=== PATIENT | female | born 1950 | race Caucasian/White ===

== ENCOUNTER → 2017-04-21 11:11 | Outpatient (CLI) | payer MEDICARE, OTHER, SELFPAY ==
--- NOTE | 2017-04-21 | XR_ITS ---
XR shoulder RT min 2V Ordering Physician: Nikhil Leon MD Patient Age: 66 years: Female HISTORY: ITS.REASON: INJURY OF RT SHOULDER, PAIN TECHNIQUE: 3 view right shoulder COMPARISON :No prior shoulder films available. There is a previous chest film 1117 useful comparison FINDINGS no acute fracture nor dislocation at the right shoulder but there are degenerative changes. Also note also suggestive some downward sloping of the acromion associated with roughening subchondral cystic changes base the humeral head and its junction with greater tuberosity. Also Questionable narrowing subacromial space- this difficult to confirm on these particular projections today. These features suggest underlying impingement & may reflect rotator cuff demise or injury. If pain persist MR may be of benefit to further evaluate for such clinically appropriate There are degenerative changes of the glenohumeral joint IMPRESSION 1. No acute fracture nor dislocation. 2. Degenerative changes at the right shoulder.: ... Mild Degenerative changes glenohumeral joint ... Suggestion of impingement anatomy and sequela as well: Downward sloping of acromion. Irregularity at superior base of humeral head at its junction with greater tuberosity suggest impingement and may which likely impact rotator cuff cuff.
== END ==
PROVIDERS: PCP Internal Medicine Adolescent Medicine; Referring Provider Internal Medicine Adolescent Medicine; Visit Provider Internal Medicine Adolescent Medicine
DX: S49.91XA Unspecified injury of right shoulder and upper arm, initial encounter (principal)
CPT/HCPCS: 73030

== ENCOUNTER → 2017-09-07 08:54 | Outpatient (CLI) | payer MEDICARE, OTHER, SELFPAY ==
[2017-09-07 09:20] LABS: Basophils % 0.8 % (0.1-2.0); Eosinophils % 0.1 % (0.1-12.0); Hematocrit 47.1 % (37.0-47.0); Hemoglobin 14.4 g/dL (12.2-16.2); Lymphocytes # 1.2 K/mm3 (0.7-4.5); Lymphocytes % 24.7 K/mm3 (10-50); Mean Corpuscular HGB Conc 30.5 g/dL (31.8-35.4); Mean Corpuscular Hemoglobin 28.9 pg (27.0-31.2); Mean Corpuscular Volume 94.9 fl (81-99); Mean Platelet Volume 7.6 fl (7.4-10.4); Monocytes # 0.3 K/mm3 (0.1-1.0); Monocytes % 6.2 % (1.7-9.3); Neutrophils # 3.4 K/mm3 (1.8-7.8); Neutrophils % 68.1 % (37.0-80.0); Platelet Count 197 K/mm3 (142-424); Red Blood Count 4.96 M/mm3 (4.20-5.40)
[2017-09-07 10:08] LABS: Hemoglobin A1C 5.3 % (0.0-7.0)
[2017-09-07 10:34] LABS: Alanine Aminotransferase 37 U/L (12-78); Albumin/Globulin Ratio 1.3 (1.1-1.8); Alkaline Phosphatase 143 U/L (46-116); Anion Gap 12.1 mEq/L (5-15); Aspartate Amino Transferase 19 U/L (15-37); Bilirubin,Total 0.3 mg/dL (0.2-1.0); Blood Urea Nitrogen 15 mg/dL (7-18); Calcium 8.9 mg/dL (8.5-10.1); Carbamazepine (Tegretol) 2.5 ug/ml (4.0-12.0); Carbon Dioxide 29 mmol/L (21.0-32.0); Chloride 108 mmol/L (98-107); Cholesterol 202 mg/dL (140-200); Creatinine,Serum 0.75 mg/dL (0.55-1.02); Estimated Glomerular Filt Rate 77 ml/min (>60); GFR (African American) 94 ML/MIN (>60); Glucose 101 mg/dL (74-106); HDL Cholesterol 99 mg/dL (29-89); LDL Cholesterol 95 mg/dL (0-130); Phenytoin (Dilantin) 14.4 ug/mL (10-20); Potassium 4.1 mmoL/L (3.5-5.1); Sodium 145 mmol/L (136-145); Thyroid Stimulating Hormone 2.45 uIU/ml (0.358-3.740); Triglycerides 41 mg/dL (30-200); VLDL Cholesterol 8 mg/dL (0-40)
== END ==
PROVIDERS: Visit Provider Internal Medicine Adolescent Medicine
DX: R63.1 Polydipsia (principal); E78.5 Hyperlipidemia, unspecified; R53.81 Other malaise; R56.9 Unspecified convulsions
CPT/HCPCS: 36415; 80053; 80061; 80156; 80185; 83036; 83735; 84443; 85025

== ENCOUNTER → 2017-10-26 08:09 | Outpatient (CLI) | payer MEDICARE, OTHER, SELFPAY ==
--- NOTE | 2017-10-26 08:11 | MM_ITS ---
MM Dig screening mamm BI w/CAD ORDERING PHYSICIAN : Nikhil Leon MD PATIENT AGE: 66 years GENDER: Female COMPARISON: April 2016 and July 2013 bilateral mammogram INDICATION: ITS.REASON: SCREENING. No hormones. No new complaints. No surgery Family history. Paternal grandmother TECHNIQUE: Standard CC and MLO images were obtained. R2 CAD reviewed. FINDINGS: Dense breast bilaterally decreases sensitivity mammography but I see no significant new findings. No dominant mass nor suspicious calcifications. Vascular calcifications again seen bilaterally. There are vascular calcifications in both breast slightly advanced for a 66-year-old. Does the patient have diabetes or known vascular disease? RIGHT BREAST:Again areas of dense breast tissue appears similar to previous studies. Bilateral follow-up one year adequate LEFT BREAST: Area of breast density most pronounced at the upper outer quadrant left breast. This somewhat round area of density appears similar to previous studies. Similar to 2014. I suspect left impression on today's MLO view but it does dissipate on the cc view. Cc view appears unchanged and best same consistent projection comparison. In this case IMPRESSION: Dense breasts decreased sensitivity of mammography. . However I see no significant new findings. Follow-up in one year adequate And would encourage self breast exam Low threshold for ultrasound particularly if any palpable areas arise. Ultrasound particularly useful in of this dense character breast to augment/compliment mammography.. BI-RADS Category: 2 Benign Finding(s) RECOMMENDED FOLLOW-UP: 1YR 1 YEAR FOLLOW-UP (A letter has been sent to the patient regarding results of the study.)
--- NOTE | 2017-10-26 08:12 | XR_ITS ---
XR DEXA axial skeleton COMPARISON: None HISTORY: Patient is postmenopausal, fracture as an adult TECHNIQUE: DEXA scanning of the lumbar spine and bilateral hips FINDINGS: Lumbar spine: The areas BMD L1-L4 is 0.778 g/sq cm and T score is -3.4. Right hip: The total BMD is 0.755 g centimeters square the T score -2.0 in the right femoral neck is 0.782 g/sq cm with T score -1.8. Left hip: The total BMD is 0.763 g centimeters square the T score -1.9 and the left femoral neck is 0.714 g centimeters square with a T score -2.3. IMPRESSION: Osteoporosis lumbar spine, osteopenia values for both hips, consider follow-up study in 2 years
== END ==
PROVIDERS: Family Provider Internal Medicine Adolescent Medicine; PCP Internal Medicine Adolescent Medicine; Visit Provider Internal Medicine Adolescent Medicine
DX: Z12.31 Encounter for screening mammogram for malignant neoplasm of breast (principal); Z13.820 Encounter for screening for osteoporosis; Z78.0 Asymptomatic menopausal state
CPT/HCPCS: 77067; 77080

== ENCOUNTER → 2018-08-12 11:23 | Outpatient (CLI) | payer MEDICARE, OTHER, SELFPAY ==
--- NOTE | 2018-08-12 11:29 | XR_ITS ---
XR chest 2V HISTORY: ITS.REASON: COUGH, shortness of air, wheezing ORDERING PHYSICIAN: Vivek Marie MD PATIENT AGE: 67 years COMPARISON: 11 10 16 FINDINGS: The cardiomediastinal silhouette and pulmonary vascularity are within normal limits. The lungs are clear without infiltrates, suspicious nodules, or pleural effusions. Calcified nodular density is present in the left lower lobe unchanged No acute bony abnormalities. IMPRESSION: No change with no acute finding
== END ==
PROVIDERS: PCP Internal Medicine Adolescent Medicine; Visit Provider Internal Medicine Adolescent Medicine
DX: R05 Cough (principal)
CPT/HCPCS: 71046

== ENCOUNTER 2018-10-29 15:00 | Outpatient (RCR) | payer MEDICARE, OTHER, SELFPAY ==
--- NOTE | 2018-10-24 14:53 | HMH.PTOPEV ---
PT Outpatient Evaluation Rehab PT Outpatient Evaluation Start: 10/24/18 14:20 Freq: Status: Active Protocol: Document 10/24/18 14:20 PDEPATRICK (Rec: 10/24/18 14:53 [email or web address] [id number]) Electronically Signed By Will Hutson, PT 10/24/18 14:20 Outpatient Therapy Subjective History Subjective History Pt. is a 67 year old female who presents to outpatient PT for complaints of subacute R ear P!, light headed, and dizziness after having a seizure on 09/26/18. Pt. reports having a seizure and being out for 30-45' until her dog's barking made someone come to the door. Pt. reports current symptoms of vomiting and feeling sick when she rotates her head with the only symptom relief being on her back. Pt. also reported some RLE weakness after the seizure but reports, that has gotten a lot better. Recent diagnostic imaging negative per pt. report. Current medications include Tegretol, Dilatin, and Carvedilol. PMH includes a partial hysterectomy, R RC repair, Cholecystectomy, HTN, heart murmur, and a hx. of seizures. Chief Complaint Weakness,Other Symptom Type Other Symptoms Relieved By Rest/Positioning Symptoms Aggravated By Twisting Prior Functional Limitations None Current Functional Limitations Housework,Dressing,Driving, Standing,Recreation Activity, Walking,Stairs,Balance Symptom Description Constant and Continuous Level of pain today (0-10) 3 Pain scale - at its best (0-10) 2 Pain scale - at its worst (0-10) 10 Balance Eval Subjective Hx of Complaint Comment I have R ear P!, dizziness, and light headedness since my seizure. Chief Complaint vertigo Yes Did you feel dizzy, unsteady or faint? Yes Activity at onset seizure Prior Functional Limitations Prior Functional [place] Level Independent Current Functional Limitations Comment gait, stair, standing, ce
== END 2018-10-29 15:05 | disposition home or self-care (01) ==
LOC: PT 15:00
PROVIDERS: PCP Internal Medicine Adolescent Medicine; Visit Provider Internal Medicine Adolescent Medicine
DX: R42 Dizziness and giddiness (principal)
CPT/HCPCS: 97110; 97140; 97163

== ENCOUNTER 2018-11-15 20:38 | Observation (INO) ==
--- NOTE | 2018-11-15 20:52 | Emergency Department Note ---
ED Disposition Clinical Impression: Dilantin toxicity Qualifiers: Encounter type: initial encounter Injury intent: accidental or unintentional Qualified Code(s): T42.0X1A - Poisoning by hydantoin derivatives, accidental (unintentional), initial encounter Disposition: Admitted As Inpatient Condition on Discharge: [facility] Critical Care Time: No Attestation: On , the high probability of a clinically significant, sudden or life threatening deterioration of the following system(s) required my full and direct attention, intervention and personal management. The time I documented below is in addition to time spent performing reported procedures but includes the following listed in this critical care notation. Medical Decision Making - [place] Inquiry Pt receiving controlled substance: No Vital Signs: 11/15/18 20:39 11/15/18 20:48 11/15/18 21:09 Temperature 98.1 F 98.1 F Temperature Source Oral Oral Pulse Rate Pulse Rate [Left Radial] 88 88 84 Respiratory Rate 18 18 18 Blood Pressure Blood Pressure [Right Arm] 148/82 H 148/82 H 142/80 H Blood Pressure Mean [Right Arm] 104 104 100 Blood Pressure Source [Right Arm] Automatic Cuff Automatic Cuff Automatic Cuff Blood Pressure Position [Right Arm] Supine Supine Supine 02 Sat by Pulse Oximetry 100 100 100 Oxygen Delivery Method Room Air Room Air Room Air 11/15/18 21:30 11/15/18 22:30 11/15/18 23:39 Temperature 98.1 F Temperature Source Pulse Rate 80 Pulse Rate [Left Radial] 86 89 Respiratory Rate 18 18 15 Blood Pressure 130/70 Blood Pressure [Right Arm] 146/84 H 140/82 Blood Pressure Mean [Right Arm] 104 101 Blood Pressure Source [Right Arm] Automatic Cuff Automatic Cuff Blood Pressure Position [Right Arm] Supine Supine 02 Sat by Pulse Oximetry 100 100 Oxygen Delivery Method Room Air Room Air Room Air 11/15/18 23:53 Temperature 98.1 F Temperature Source Oral Pulse Rate Pulse Rate [Left Radial] 81 Respiratory Rate 18 Blood Pressure Blood Pressure [Right Arm] 172/80 H Blood Pressure Mean [Right Arm] 110 Blood Pressure Source [Right Arm] Automatic Cuff Blood Pressure Position [Right Arm] Sitting 02 Sat by Pulse Oximetry 99 Oxygen Delivery Method Room Air - Lab Data Lab Results 11/15/18 20:45: Urine Color Yellow, Urine Appearance Clear, Urine pH 7.0, Ur Specific [place] 1.015, Urine Protein Negative, Urine Glucose (UA) Negative, Urine Ketones Trace, Urine Blood Trace-i, Urine Nitrate Negative, Urine Bilirubin Negative, Urine Urobilinogen 0.2, Ur Leukocyte Esterase Trace, Urine WBC Occasional, Ur Squamous Epith Cells Occasional, Urine Bacteria Trace 11/15/18 21:05: ESR 6 11/15/18 21:05: Troponin I < 0.02, C-Reactive Protein < 0.2 11/15/18 21:05: WBC 9.8, RBC 4.83, Hgb 14.9, Hct 45.5, MCV 94.1, MCH 30.8, MCHC 32.7, RDW 13.3, Plt Count 264, MPV 6.9 L, Neut % (Auto) 71.9, Lymph % (Auto) 22.2, [place] % (Auto) 5.5, Eos % (Auto) 0.1, Baso % (Auto) 0.3, Neut # (Auto) 7.1, Lymph # (Auto) 2.2, [place] # (Auto) 0.5, Eos # (Auto) 0.0, Baso # (Auto) 0.0 11/15/18 21:05: Sodium 141, Potassium 3.9, Chloride 105, Carbon Dioxide 24, Anion Gap 15.9 H, BUN 12, Creatinine 0.78, Estimated Creat Clear 63, Estimated GFR 74, Est GFR ( Amer) 89, Glucose 117 H, Calcium 9.3, Total Bilirubin 0.5, AST 14 L, ALT 22, Alkaline Phosphatase 86, Total Protein 7.5, Albumin 4.1, Globulin 3.4 H, Albumin/Globulin Ratio 1.2 11/15/18 21:05: Phenytoin 34.6 H*, Carbamazepine 6.4 Result diagrams: 11/17/18 06:14 11/17/18 06:47 Orders (Tests/Meds): ED MEDICATIONS Generic Name Dose Route Start Last Admin Trade Name Freq PRN Reason Stop Dose Admin Carbamazepine 200 mg 11/16/18 09:00 11/17/18 09:30 Carbamazepine 200mg Tablet PO 12/16/18 08:59 200 mg QID RODY Administration Sodium Chloride 1,000 mls @ 50 mls/hr 11/15/18 23:30 11/16/18 18:41 Sod Chlor 0.9% 1000ml Bag IV 12/15/18 23:29 Not Given .Q20H RODY Irbesartan 37.5 mg 11/16/18 09:00 11/17/18 09:30 Avapro 75mg Tablet PO 12/16/18 08:59 37.5 mg DAILY RODY Administration Meclizine HCl 25 mg 11/16/18 09:00 11/17/18 09:30 Antivert 25mg Tablet PO 12/16/18 08:59 25 mg TID RODY Administration Ondansetron HCl 4 mg 11/16/18 08:37 11/16/18 21:48 Zofran 4mg/2ml Vial IV 12/16/18 08:36 4 mg Q6HP PRN Administration Nausea Sodium Chloride 10 ml 11/15/18 23:21 11/16/18 14:08 Saline Flush 10ml Syringe IV 12/15/18 23:20 10 ml NEEDED PRN Administration Maintain IV Site Discontinued Medications Generic Name Dose Route Start Last Admin Trade Name Freq PRN Reason Stop Dose Admin Sodium Chloride 1,000 mls @ 999 mls/hr 11/15/18 21:15 11/15/18 21:14 Sod Chlor 0.9% 1000ml Bag IV 11/15/18 22:15 999 mls/hr .Q1H1M RODY Administration Ketorolac Tromethamine 30 mg 11/15/18 21:05 11/15/18 21:14 Toradol 30mg/Ml Vial IV 11/15/18 21:06 30 mg ONCE ONE Administration Meclizine HCl 25 mg 11/15/18 22:32 11/15/18 22:42 Antivert 25mg Tablet PO 11/15/18 22:33 25 mg ONCE ONE Administration Non-Formulary Medication 4 mg 11/15/18 23:21 Ondansetron Hcl [Ondansetron 4mg Tablet] PO NEEDED PRN Nausea And Vomiting Ondansetron HCl 4 mg 11/15/18 21:05 11/15/18 21:14 Zofran 4mg/2ml Vial IV 11/15/18 21:06 4 mg ONCE ONE Administration Promethazine HCl 6.25 mg 11/15/18 22:32 11/15/18 22:42 Phenergan 25mg/Ml 1ml Vial IV 11/15/18 22:33 6.25 mg ONCE ONE Administration Sodium Chloride 25 ml 11/15/18 22:32 11/15/18 22:42 Sod Chlor 0.9% 25ml Bag IV 11/15/18 22:33 25 ml ONCE ONE Administration - CT Data CT Scan: Abdomen, Pelvis Time Received: 22:[address] Reviewed: Yes: I have viewed the radiologist's interpretation Findings Narrative: CT scan interpreted by [facility] radiologist. Faxed report received and reviewed: Moderate amount of stool throughout the colon. Urinary bladder wall prominence. Incompletely imaged asymmetric nodular density right breast. - ECG Data Tracing #1 EKG interpreted by Chance Douglas MD: Rhythm: sinus Rate: [place]: normal Ectopy: none Conduction: Right bundle branch block, left posterior fascicular block ST Segment Changes: none T Wave Changes: none Q Waves: none No evidence of acute ischemia or injury No prior EKGs available for comparison General Adult HPI - General Stated complaint: V[place],can't walk Time Seen by Provider: 11/15/18 21:55 - History of Present Illness HPI narrative: Patient complains of vertigo, nausea and vomiting and weakness. She says that she has a seizure disorder. She had a severe seizure end of August when she was in [facility]. She says she was hospitalized there for 8 or 9 days. She says she had a brain scan that was negative. Ever since then she has had vertigo, every day. She gets some severe episodes where she vomits and cannot walk. She says that she has been told that she has a bruised eardrum. She is on meclizine. Her last dose was about 3 or 4:00 today. She had severe episode again this evening and therefore came to the emergency room. She says she feels better now. No abdominal pain. No headache. No visual disturbance. No numbness or weakness of the extremities. She says she had a recent change in her Tegretol dosage, dose increased by 100 mg, but she says she thought it might make her dizzy so she is only been taking that every other day. - Related Data Home Medications Medication Instructions Recorded Confirmed Losartan Potassium 25 mg PO DAILY 11/15/18 11/15/18 Meclizine HCl [Meclizine 25mg Tab] 25 mg PO TID 11/15/18 11/15/18 Ondansetron HCl [Ondansetron 4mg 4 mg PO Q8HP PRN 11/15/18 11/16/18 Tablet] Phenytoin Sodium Extended 100 mg PO QID 11/15/18 11/15/18 [Dilantin] carBAMazepine [Tegretol] 200 mg PO QID 11/15/18 11/15/18 Carvedilol [Carvedilol 25mg Tab] 25 mg PO BID 11/16/18 11/16/18 Allergies Allergy/AdvReac Type Severity Reaction Status Date / Time phenobarbital [PHENOBARBITAL] Allergy Severe COMA Verified 11/15/18 21:07 hydroxyzine [From VISTARIL] Allergy Unknown NA-NAUSEA/V Verified 11/15/18 21:07 OMITING Iodinated Contrast Media - Allergy Unknown UNABLE Verified 11/15/18 21:07 Oral and TALK,ETC [IODINATED CONTRAST MEDIA - IV DYE] sumatriptan [From IMITREX] Allergy Unknown LIPS Verified 11/15/18 21:07 SWELLING verapamil [VERAPAMIL] Allergy Unknown VERTIGO Verified 11/15/18 21:07 LIQUID TYLENOL DYE Allergy Unknown I-RASH Uncoded 03/20/17 14:54 [facility] History - Hepatitis A Screen Attestation statement:: This patient has been screened for Hepatitis A risk factors. I have reviewed the patient's past medical history: Yes ROS Obtained: Yes All systems reviewed & no additional complaints - Constitutional Constitutional: Denies fever(s) - Eyes Eyes: Denies change in vision, Denies diplopia - Cardiovascular Cardiovascular: Denies chest pain - Respiratory Respiratory: No dyspnea - Gastrointestinal Gastrointestingal: Reports: nausea, vomiting. Denies: abdominal pain - Neurologic Neurologic: Denies headache(s), Denies numbness, Reports vertigo, Denies weakness Physical Exam - General General appearance: alert, in no apparent distress - Head Head exam: atraumatic, normocephalic - Eye Eye exam: Present: normal appearance, PERRL, EOMI, nystagmus (Mild nystagmus bilaterally on lateral gaze) - ENT ENT exam: Present: normal exam, normal oropharynx, mucous membranes moist - Neck Neck exam: Present: normal inspection, full ROM - Chest Chest inspection: Present: normal inspection, symmetric chest wall rise - Respiratory Respiratory exam: Present: normal lung sounds bilaterally. Absent: respiratory distress - Cardiovascular Cardiovascular exam: Present: regular rate, normal rhythm, normal heart sounds - Abdominal Exam Abdominal exam: Present: soft, normal bowel sounds. Absent: distention, tenderness - Neurological Exam Neurological exam: Present: alert, oriented X3, CN II-XII intact. Absent: motor sensory deficit - Psychiatric Psychiatric exam: Present: normal affect, normal mood - Skin Skin exam: Present: warm, dry
[2018-11-15 21:06] LABS: Microscopic, Urine URINE MICROSCOPIC (MICROSCOPIC)
[2018-11-15 21:08] LABS: Appearance,Urine CLEAR (Clear); Blood, Urine TRACE-I (Negative); Color,Urine YELLOW (Yellow); Glucose,Urine (UA) Negative (Negative); Ketones,Urine TRACE (Negative); Leukocyte Esterase,Urine TRACE (Negative); Protein,Urine Negative (Negative); Specific Gravity, Urine 1.015 (1.005-1.030); Urobilinogen,Urine 0.2 EU/dl (0.2)
[2018-11-15 21:21] LABS: Basophils % 0.3 % (0.1-2.0); Eosinophils % 0.1 % (0.1-12.0); Hematocrit 45.5 % (37.0-47.0); Hemoglobin 14.9 g/dL (12.2-16.2); Lymphocytes # 2.2 K/mm3 (0.7-4.5); Lymphocytes % 22.2 % (10-50); Mean Corpuscular HGB Conc 32.7 g/dL (31.8-35.4); Mean Corpuscular Volume 94.1 fl (81-99); Mean Platelet Volume 6.9 fl (7.4-10.4); Monocytes # 0.5 K/mm3 (0.1-1.0); Monocytes % 5.5 % (1.7-9.3); Neutrophils # 7.1 K/mm3 (1.8-7.8); Neutrophils % 71.9 % (37.0-80.0); Platelet Count 264 K/mm3 (142-424); Red Blood Count 4.83 M/mm3 (4.20-5.40); Red Cell Distribution Width 13.3 % (11.5-17.5); White Blood Count 9.8 K/mm3 (4.8-10.8)
[2018-11-15 21:26] LABS: Bilirubin,Urine Negative (Negative)
[2018-11-15 21:27] LABS: Bacteria,Urine Trace /lpf; Squamous Epithelial Cell,Urine Occasional #/hpf (0-5); WBC,Urine Occasional #/hpf (0-3)
[2018-11-15 22:06] LABS: Albumin Level 4.1 gm/dL (3.4-5.0); Albumin/Globulin Ratio 1.2 (1.1-1.8); Anion Gap 15.9 mEq/L (5-15); Bilirubin,Total 0.5 mg/dL (0.2-1.0); Calcium 9.3 mg/dL (8.5-10.1); Globulin 3.4 gm/dl (1.3-3.2); Total Protein,Serum 7.5 gm/dL (6.4-8.2)
[2018-11-15 22:07] LABS: C-Reactive Protein < 0.2 mg/dL (0.0-0.9)
[2018-11-15 22:21] LABS: Carbamazepine (Tegretol) 6.4 ug/ml (4.0-12.0)
[2018-11-15 22:27] LABS: Phenytoin (Dilantin) 34.6 ug/mL (10-20)
--- NOTE | 2018-11-16 07:49 | History & Physical Report ---
*Admission Date: 11/15/18 *Chief complaint: Dizziness/vertigo *History of present illness: 67-year-old white female with long history of generalized epilepsy, treated since she was a teenager with Dilantin therapy and Tegretol. Has been fairly stable over the past couple of years, but was traveling to visit daughter in [facility] at the last part of August and she suffered a significant, very lengthy and life-threatening grand mal seizure. She was treated in the hospital in [place] for about 9 or 10 days, and apparently a cardiac work-up was done and her Dilantin dose was increased by 100 mg daily. She reports that during the hospitalization she began to have some dizziness and vertigo, she was told it might be in her ear, and was discharged. Interestingly she did not go to the higher dose of Dilantin that was recommended by the physicians at that hospital and went back to her regular dose but over the past several days her dizziness and vertigo has increased. At this point finally became intolerable and she came to the hospital where she was found to be Dilantin toxic with levels of 34 and was admitted to the hospital for IV fluids and obviously cessation of her Dilantin. [facility] History I have reviewed the patient's past medical history: Yes Medical History: Reports:: Heart Murmur, Hypertension Denies:: Cancer, Diabetes Mellitus Type 1, Diabetes Mellitus Type 2, MRSA *Have you ever received a pneumonia vaccine?: Yes *Have you received a flu vaccine this season?: No Comment:: Lifelong seizure disorder-generalized seizures-lifelong Dilantin use Laterality Cases: Right: Other Other Surgeries: Yes: Cholecystectomy, Colonoscopy, Hysterectomy-Partial, Tubal Ligation, Other (NASAL SX AND RT ROTATOR CUFF SX) Amputation: No - *Social History Educational Level: Completed High School Smoking Status: Never smoker Alcohol Intake: never *Occupational Status:: unemployed Housing: house Household Members: none *Travel in the last 8 weeks: None - Psychiatric History Expresses thoughts of harming self/others: None Suicide Plan Description: No Plan Family Hx:: Asthma, Cancer, Coronary Artery Disease, Hyperlipidemia, Hypertension, Stroke Review of Systems - Review of Systems Review of systems:: pertinent systems reviewed and negative unless documented below Reports minimal dizziness and vertigo. Denies confusion. Denies feeling of impending seizure activity. - *Neurologic Reports dizziness, Denies headache(s), Denies numbness, Denies weakness Meds Home Medications Medication Instructions Recorded Confirmed Type Losartan Potassium 25 mg PO DAILY 11/15/18 11/15/18 History Meclizine HCl [Meclizine 25mg Tab] 25 mg PO TID 11/15/18 11/15/18 History Ondansetron HCl [Ondansetron 4mg 4 mg PO NEEDED PRN 11/15/18 11/15/18 History Tablet] Phenytoin Sodium Extended 100 mg PO QID 11/15/18 11/15/18 History [Dilantin] carBAMazepine [Tegretol] 200 mg PO QID 11/15/18 11/15/18 History Allergies Allergy/AdvReac Type Severity Reaction Status Date / Time phenobarbital [PHENOBARBITAL] Allergy Severe COMA Verified 11/15/18 21:07 hydroxyzine [From VISTARIL] Allergy Unknown NA-NAUSEA/V Verified 11/15/18 21:07 OMITING Iodinated Contrast Media - Allergy Unknown UNABLE Verified 11/15/18 21:07 Oral and TALK,ETC [IODINATED CONTRAST MEDIA - IV DYE] sumatriptan [From IMITREX] Allergy Unknown LIPS Verified 11/15/18 21:07 SWELLING verapamil [VERAPAMIL] Allergy Unknown VERTIGO Verified 11/15/18 21:07 LIQUID TYLENOL DYE Allergy Unknown I-RASH Uncoded 03/20/17 14:54 Exam Vital signs and Labs for Last 24 Hours: Temp Pulse Resp BP Pulse Ox 98.6 F 70 16 103/52 L 95 11/16/18 04:00 11/16/18 04:00 11/16/18 04:00 11/16/18 04:00 11/16/18 04:00 Laboratory Results - last 24 hr 11/15/18 20:45: Urine Color Yellow, Urine Appearance Clear, Urine pH 7.0, Ur Specific [place] 1.015, Urine Protein Negative, Urine Glucose (UA) Negative, Urine Ketones Trace, Urine Blood Trace-i, Urine Nitrate Negative, Urine Bilirubin Negative, Urine Urobilinogen 0.2, Ur Leukocyte Esterase Trace, Urine WBC Occasional, Ur Squamous Epith Cells Occasional, Urine Bacteria Trace 11/15/18 21:05: ESR 6 11/15/18 21:05: Troponin I < 0.02, C-Reactive Protein < 0.2 11/15/18 21:05: WBC 9.8, RBC 4.83, Hgb 14.9, Hct 45.5, MCV 94.1, MCH 30.8, MCHC 32.7, RDW 13.3, Plt Count 264, MPV 6.9 L, Neut % (Auto) 71.9, Lymph % (Auto) 22.2, [place] % (Auto) 5.5, Eos % (Auto) 0.1, Baso % (Auto) 0.3, Neut # (Auto) 7.1, Lymph # (Auto) 2.2, [place] # (Auto) 0.5, Eos # (Auto) 0.0, Baso # (Auto) 0.0 11/15/18 21:05: Sodium 141, Potassium 3.9, Chloride 105, Carbon Dioxide 24, Anio n Gap 15.9 H, BUN 12, Creatinine 0.78, Estimated Creat Clear 63, Estimated GFR 74, Est GFR ( Amer) 89, Glucose 117 H, Calcium 9.3, Total Bilirubin 0.5, AST 14 L, ALT 22, Alkaline Phosphatase 86, Total Protein 7.5, Albumin 4.1, Globulin 3.4 H, Albumin/Globulin Ratio 1.2 11/15/18 21:05: Phenytoin 34.6 H*, Carbamazepine 6.4 I & O for Last 24 hours: Intake & Output 11/13/18 11/14/18 11/15/18 11/16/18 11:59 11:59 11:59 11:59 Intake Total 421 / 421 Output Total 0 / 0 Balance 421 / 421 Weight 152 lb 1 oz Narrative: Patient is pleasant, alert, oriented x3. Does have some inducible dizziness when she turns her head rapidly during the exam. Extraocular motions are intact, pupils are equally reactive. Lungs are clear, heart rate regular without murmurs. Abdomen soft nontender. Moves all extremities well and equally. Assessment and Plan (1) Epilepsy Current visit: Yes Status: Acute Category: Medical Code(s): G40.909 - Epilepsy, unspecified, not intractable, without status epilepticus Watch carefully in hospital. Consider other agents for her lifelong epilepsy besides Dilantin. (2) Hypertension, essential Current visit: Yes Status: Acute Category: Medical Code(s): I10 - Essential (primary) hypertension Blood pressure normal at this point. Continue losartan (3) Dilantin toxicity Current visit: Yes Status: Acute Category: Medical Code(s): T42.0X1A - Poisoning by hydantoin derivatives, accidental (unintentional), initial encounter Obviously hold Dilantin, IV fluids, watch labs tomorrow
--- NOTE | 2018-11-16 10:25 | Pharmacy Consult Notes ---
[facility] Pharmacy VTE Monitoring - Patient Demographics Admission date: 11/15/18 Report Date: 11/16/18 Time: 10:24 Allergies/Adverse Reactions: Patient Allergies phenobarbital [PHENOBARBITAL] Allergy (Severe, Verified 11/15/18 21:07) COMA hydroxyzine [From VISTARIL] Allergy (Unknown, Verified 11/15/18 21:07) NA-NAUSEA/VOMITING Iodinated Contrast Media - Oral and [IODINATED CONTRAST MEDIA - IV DYE] Allergy (Unknown, Verified 11/15/18 21:07) UNABLE TALK,ETC sumatriptan [From IMITREX] Allergy (Unknown, Verified 11/15/18 21:07) LIPS SWELLING verapamil [VERAPAMIL] Allergy (Unknown, Verified 11/15/18 21:07) VERTIGO LIQUID TYLENOL DYE Allergy (Unknown, Uncoded 03/20/17 14:54) I-RASH Height: 1.65 m Weight: 68.974 kg Patient Problems: Current Active Problems Dilantin toxicity (Acute) Epilepsy (Acute) Hypertension, essential (Acute) - VTE Risk Labs: VTE Related Lab Results Hgb 14.9 g/dL (12.2-16.2) 11/15/18 21:05 Hct 45.5 % (37.0-47.0) 11/15/18 21:05 Plt Count 264 K/mm3 (142-424) 11/15/18 21:05 BUN 12 mg/dL (7-18) 11/15/18 21:05 Creatinine 0.78 mg/dL (0.55-1.02) 11/15/18 21:05 Estimated Creat Clear 63 mL/min (50-200) 11/15/18 21:05 Was VTE Risk Assessment Performed: Yes VTE Score: 3 VTE Risk Level: Low Risk - Prophylaxis VTE Prophylaxis Ordered?: Yes Types of VTE Prophylaxis: TEDS Knee High Location of Applied Device: Bilateral Lower Extremeties - VTE Diagnosis Confirmed Treatment or plan recommended: Continue Current Treatment
--- NOTE | 2018-11-16 12:41 | Electrocardiograph Report ---
APPROVED REPORT Exam: Resting ECG HR:81 bpm ECG Measurements Heart Rate 81 AXES VA 152 P 62 QRSd 138 QRS 125 QT 404 T55 QTc 469 <Conclusion> Normal sinus rhythm Right bundle branch block Left posterior fascicular block Bifascicular block Abnormal ECG Electronically signed by : Nikhil Leon, 11/16/2018 12:41:40
[2018-11-17 06:21] LABS: Basophils % 0.5 % (0.1-2.0); Eosinophils % 0.5 % (0.1-12.0); Hemoglobin 12.7 g/dL (12.2-16.2); Lymphocytes # 1.9 K/mm3 (0.7-4.5); Lymphocytes % 28.5 % (10-50); Mean Corpuscular HGB Conc 32.5 g/dL (31.8-35.4); Mean Corpuscular Volume 97.1 fl (81-99); Mean Platelet Volume 7.6 fl (7.4-10.4); Monocytes # 0.4 K/mm3 (0.1-1.0); Monocytes % 5.3 % (1.7-9.3); Neutrophils # 4.4 K/mm3 (1.8-7.8); Neutrophils % 65.1 % (37.0-80.0); Platelet Count 179 K/mm3 (142-424); Red Blood Count 4.02 M/mm3 (4.20-5.40); Red Cell Distribution Width 13.5 % (11.5-17.5); White Blood Count 6.7 K/mm3 (4.8-10.8)
[2018-11-17 06:52] LABS: Albumin Level 3.3 gm/dL (3.4-5.0); Albumin/Globulin Ratio 1.3 (1.1-1.8); Anion Gap 13.4 mEq/L (5-15); Bilirubin,Total 0.3 mg/dL (0.2-1.0); Calcium 8.6 mg/dL (8.5-10.1); Globulin 2.5 gm/dl (1.3-3.2); Total Protein,Serum 5.8 gm/dL (6.4-8.2)
[2018-11-17 07:08] LABS: Phenytoin (Dilantin) 24.9 ug/mL (10-20)
--- NOTE | 2018-11-17 07:39 | Progress Note ---
Internal Medicine - PN: Subj *Date: 11/17/18 *Time: 07:38 Interval history: Patient feels better, continues to be a little vertiginous when she gets up and around, has been getting up with the assistance of nursing staff, no falls, no evidence of seizure activity. Exam Vital signs and Labs for Last 24 Hours: Temp Pulse Resp BP Pulse Ox 98.6 F 74 18 108/51 L 96 11/17/18 04:00 11/17/18 04:00 11/17/18 04:00 11/17/18 04:00 11/17/18 04:00 Laboratory Results - last 24 hr 11/16/18 20:10: Phenytoin 27.5 H* 11/17/18 06:14: WBC 6.7 D, RBC 4.02 L, Hgb 12.7, Hct 39.0, MCV 97.1, MCH 31.5 H , MCHC 32.5, RDW 13.5, Plt Count 179 D, MPV 7.6, Neut % (Auto) 65.1, Lymph % (Auto) 28.5, Barry % (Auto) 5.3, Eos % (Auto) 0.5, Baso % (Auto) 0.5, Neut # (Auto) 4.4, Lymph # (Auto) 1.9, Barry # (Auto) 0.4, Eos # (Auto) 0.0, Baso # (Auto) 0.0 11/17/18 06:47: Sodium 141, Potassium 4.4, Chloride 108 H, Carbon Dioxide 24, Anion Gap 13.4, BUN 17 D, Creatinine 0.68, Estimated Creat Clear 59, Estimated GFR 86, Est GFR ( Amer) 104, Glucose 96, Calcium 8.6, Total Bilirubin 0.3, AST 12 L, ALT 18, Alkaline Phosphatase 75, Total Protein 5.8 L, Albumin 3.3 L D, Globulin 2.5, Albumin/Globulin Ratio 1.3, Phenytoin 24.9 H* I & O for Last 24 hours: Intake & Output 11/14/18 11/15/18 11/16/18 11/17/18 11:59 11:59 11:59 11:59 Intake Total 781 / 781 1191 / 1191 Output Total 0 / 0 1100 / 1100 Balance 781 / 781 91 / 91 Weight 152 lb 1 oz 151 lb 1 oz Narrative: Alert, pleasant. Oriented x3. Heart rate regular. Lungs clear. Oropharynx clear, no JVD. Abdomen soft and nontender. No neurologic deficits of power in her extremities and cranial nerves are intact . Assessment and Plan (1) Epilepsy Current visit: Yes Status: Acute Category: Medical Code(s): G40.909 - Epilepsy, unspecified, not intractable, without status epilepticus (2) Hypertension, essential Current visit: Yes Status: Acute Category: Medical Code(s): I10 - Essential (primary) hypertension (3) Dilantin toxicity Current visit: Yes Status: Acute Category: Medical Code(s): T42.0X1A - Poisoning by hydantoin derivatives, accidental (unintentional), initial encounter - Assessment and plan all Dx Assessment and Plan for all problems:: Continue current IV fluids, obviously continue to hold Dilantin, and levels are improving. Check levels tomorrow. PT evaluation. If cleared for ambulation independently would consider discharge home tomorrow.
[2018-11-18 07:06] LABS: Anion Gap 14.9 mEq/L (5-15); Calcium 8.5 mg/dL (8.5-10.1)
[2018-11-18 07:13] LABS: Phenytoin (Dilantin) 22.3 ug/mL (10-20)
[2018-11-18 07:14] LABS: Hematocrit 39.8 % (37.0-47.0); Hemoglobin 12.9 g/dL (12.2-16.2); Mean Corpuscular HGB Conc 32.4 g/dL (31.8-35.4); Mean Corpuscular Volume 95.8 fl (81-99); Mean Platelet Volume 7.1 fl (7.4-10.4); Platelet Count 151 K/mm3 (142-424); Red Blood Count 4.15 M/mm3 (4.20-5.40); Red Cell Distribution Width 13.5 % (11.5-17.5); White Blood Count 5.3 K/mm3 (4.8-10.8)
[2018-11-18 07:15] LABS: Basophils % 0.5 % (0.1-2.0); Eosinophils % 0.1 % (0.1-12.0); Lymphocytes # 1.5 K/mm3 (0.7-4.5); Lymphocytes % 30.1 % (10-50); Monocytes # 0.4 K/mm3 (0.1-1.0); Monocytes % 7.2 % (1.7-9.3); Neutrophils # 3.3 K/mm3 (1.8-7.8); Neutrophils % 62.1 % (37.0-80.0)
--- NOTE | 2018-11-18 07:57 | Discharge Summary ---
General - General Admission date:: 11/16/18 Discharge date: 11/18/18 HPI HPI: 67-year-old white female with long history of generalized epilepsy, treated since she was a teenager with Dilantin therapy and Tegretol. Has been fairly stable over the past couple of years, but was traveling to visit daughter in [facility] at the last part of August and she suffered a significant, very lengthy and life-threatening grand mal seizure. She was treated in the hospital in [place] for about 9 or 10 days, and apparently a cardiac work-up was done and her Dilantin dose was increased by 100 mg daily. She reports that during the hospitalization she began to have some dizziness and vertigo, she was told it might be in her ear, and was discharged. Interestingly she did not go to the higher dose of Dilantin that was recommended by the physicians at that hospital and went back to her regular dose but over the past several days her dizziness and vertigo has increased. At this point finally became intolerable and she came to the hospital where she was found to be Dilantin toxic with levels of 34 and was admitted to the hospital for IV fluids and obviously cessation of her Dilantin. Hospital Course Hospital Course: Patient was admitted, placed on IV fluids. Dilantin was held. According to patient she did not take the higher dose of Dilantin recommended in the [facility], and went back to her regular dose after discharge, and so it somewhat interesting that she became toxic on this dose. She had no seizures during her hospital stay. She felt better and her dizziness and vertigo resolved as her Dilantin levels returned more closely to normal. This morning she was feeling back to her baseline. PT and OT evaluated patient, report noted. It was deemed that patient could go home, she understands driving regulations under [place] law about not driving for the next 90 days. Follow-up will be on here in the office. She will come to the lab early that morning to obtain labs and then come to the office to reassess her Dilantin level. Have instructed her to hold Dilantin today but to restart Dilantin at 300 mg daily tomorrow on November 19. Objective Vital signs: Temp Pulse Resp BP Pulse Ox 98.6 F 89 17 147/87 H 93 L 11/18/18 04:00 11/18/18 04:00 11/18/18 04:00 11/18/18 04:00 11/18/18 04:00 Narrative: Patient is pleasant. Alert. Oriented x3. No cranial nerve deficits. No vertigo with rapid eye movements. Lungs clear, heart rate regular. Abdomen soft and nontender. Distal perfusion intact. Moves all extremities well. Oropharynx clear, no JVD. Results Labs on day of discharge: Labs from last 24 hours 11/18/18 11/18/18 06:18 06:18 WBC 5.3 RBC 4.15 L Hgb 12.9 Hct 39.8 MCV 95.8 MCH 31.0 MCHC 32.4 RDW 13.5 Plt Count 151 MPV 7.1 L Neut % (Auto) 62.1 Lymph % (Auto) 30.1 [facility] % (Auto) 7.2 Eos % (Auto) 0.1 Baso % (Auto) 0.5 Neut # (Auto) 3.3 Lymph # (Auto) 1.5 [facility] # (Auto) 0.4 Eos # (Auto) 0.0 Baso # (Auto) 0.0 Sodium 142 Potassium 3.9 Chloride 108 H Carbon Dioxide 23 Anion Gap 14.9 BUN 17 Creatinine 0.64 Estimated Creat Clear 60 Estimated GFR 93 Est GFR ( Amer) 112 Glucose 91 Calcium 8.5 Phenytoin 22.3 H* DS: Diagnosis - Discharge Diagnosis (1) Epilepsy Status: Chronic (2) Hypertension, essential Status: Chronic (3) Dilantin toxicity Status: Acute Discharge Plan - Patient Discharge Instructions ACTIVITY: Continue current activity DIET: continue same diet Patient Instructions: DI for Vertigo, DI for Nausea -- Adult, DI for Vomiting -- Adult, Phenytoin - Follow up Plan Follow up with: Vivek Marie MD [Primary Care Provider] - 11/21/18 12:00 pm Disposition: Home, Self-Long-Term Medications: Home Medications Medication Instructions Recorded Confirmed Type Losartan Potassium 25 mg PO DAILY 11/15/18 11/15/18 History Meclizine HCl [Meclizine 25mg Tab] 25 mg PO TID 11/15/18 11/15/18 History Ondansetron HCl [Ondansetron 4mg 4 mg PO Q8HP PRN 11/15/18 11/16/18 History Tablet] carBAMazepine [Tegretol] 200 mg PO QID 11/15/18 11/15/18 History Carvedilol [Carvedilol 25mg Tab] 25 mg PO BID 11/16/18 11/16/18 History Phenytoin Sodium Extended 100 mg PO TID #90 cap 11/18/18 Rx [Dilantin] Prescriptions/Medication Reconciliation: Continued Ondansetron HCl [Ondansetron 4mg Tablet] 4 mg PO Q8HP PRN PRN Reason: Nausea And Vomiting Meclizine HCl [Meclizine 25mg Tab] 25 mg PO TID Losartan Potassium 25 mg PO DAILY carBAMazepine [Tegretol] 200 mg PO QID Carvedilol [Carvedilol 25mg Tab] 25 mg PO BID Changed Phenytoin Sodium Extended [Dilantin] 100 mg PO TID #90 cap Other Amb Orders: Basic Metabolic Panel Time Frame: 11/21/18, Location: None Selected Complete Blood Count Auto Diff Time Frame: 11/21/18, Location: None Selected Phenytoin (Dilantin) Time Frame: 11/21/18, Location: None Selected - Problem Reconciliation Problems Reviewed?: Yes
== END 2018-11-18 10:38 | disposition home or self-care (01) ==
LOC: 2ND 20:38 → ER 20:38 → 2ND 11-16 00:03
PROVIDERS: ADMIT Internal Medicine Adolescent Medicine; ATTEND Internal Medicine Adolescent Medicine
CPT/HCPCS: 36415; 71020; 71046; 74176; 80048; 80053; 80156; 80185; 81001; 84484; 85025; 85651; 86140; 87086; 93005; 96365; 96375; 97161; 99285; G0378; J2405

== ENCOUNTER → 2018-11-21 10:23 | Outpatient (CLI) | payer MEDICARE, OTHER, SELFPAY ==
[2018-11-21 10:53] LABS: Basophils % 0.6 % (0.1-2.0); Eosinophils # 0.1 K/mm3 (0.0-0.4); Eosinophils % 0.9 % (0.1-12.0); Hematocrit 39.3 % (37.0-47.0); Hemoglobin 12.7 g/dL (12.2-16.2); Lymphocytes # 1.5 K/mm3 (0.7-4.5); Lymphocytes % 25.6 % (10-50); Mean Corpuscular HGB Conc 32.4 g/dL (31.8-35.4); Mean Corpuscular Volume 95.7 fl (81-99); Mean Platelet Volume 8.3 fl (7.4-10.4); Monocytes # 0.4 K/mm3 (0.1-1.0); Monocytes % 7.1 % (1.7-9.3); Neutrophils # 3.8 K/mm3 (1.8-7.8); Neutrophils % 65.8 % (37.0-80.0); Platelet Count 170 K/mm3 (142-424); Red Blood Count 4.11 M/mm3 (4.20-5.40); Red Cell Distribution Width 13.6 % (11.5-17.5); White Blood Count 5.7 K/mm3 (4.8-10.8)
[2018-11-21 12:14] LABS: Blood Urea Nitrogen 11 mg/dL (7-18); Calcium 8.5 mg/dL (8.5-10.1); Carbon Dioxide 19 mmol/L (21.0-32.0); Chloride 108 mmol/L (98-107); Creatinine,Serum 0.69 mg/dL (0.55-1.02); Estimated Glomerular Filt Rate 85 ml/min (>60); GFR (African American) 103 ML/MIN (>60); Glucose 90 mg/dL (74-106); Phenytoin (Dilantin) 17.1 ug/mL (10-20); Sodium 141 mmol/L (136-145)
== END ==
PROVIDERS: Visit Provider Internal Medicine Adolescent Medicine
DX: T42.0X1A Poisoning by hydantoin derivatives, accidental (unintentional), initial encounter (principal)
CPT/HCPCS: 36415; 80048; 80185; 85025

== ENCOUNTER → 2019-05-30 08:14 | Outpatient (CLI) | payer MEDICARE, OTHER, SELFPAY ==
--- NOTE | 2019-05-30 08:30 | MM_ITS ---
PROCEDURE: MM DIG SCREENING MAMM BI W/CAD BILATERAL DIGITAL BREAST TOMOSYNTHESIS INCLUDED Patient Age:68Y CLINICAL INDICATION: SCREENING 68-year-old. No hormones. No new complaints. Family history: Paternal grandmother with breast cancer. COMPARISON: [facility] DIG MAMM-SCREEN CARTER from 07/01/2013 [facility] DIG MAMM-SCREEN CARTER W/CAD from 04/21/2016 [facility] MM Dig screening mamm BI w/CAD from 10/26/2017 TECHNIQUE: Standard CC and MLO images were obtained. R2 CAD reviewed. Bilateral digital breast tomosynthesis included FINDINGS: Dense breast tissue most evident distributed throughout the superior breast, towards upper-outer quadrant This dense tissue is better penetrated on today's digital mammograms, but I see no new suspicious or dominant mass. The overall pattern and architecture unchanged since multiple previous study but minimal vascular calcification but no suspicious calcifications. Mammography is of decreased sensitivity in breast of this increased density Left breast: No new areas of significant concern Hand the an area of slightly more pronounced density upper outer quadrant is again seen with no focal lesion evident. No interval change since studies dating back to 2016, and even 2013. Right breast:. Stable dense tissue with no new areas of concern. Again focal region slightly denser tissue within upper-outer quadrant again noted and the a appear stable since 2013 IMPRESSION: Stable bilateral mammogram. No new areas of significant concern. Dense breast bilaterally Bilateral follow-up 1 year recommended and encouraged, given the dense breast tissue pattern. BI-RAD Category: 2 Benign Finding(s) FOLLOW-UP: 1YR 1 Year Follow-up (A letter has been sent to the patient regarding results of the study.) Dictated by: Jose Frazier MD 06/04/2019 07:32 Electronically signed by Jose Frazier MD in [place] 06/04/2019 07:32
== END ==
PROVIDERS: PCP Internal Medicine Adolescent Medicine; Visit Provider Internal Medicine Adolescent Medicine
DX: Z12.31 Encounter for screening mammogram for malignant neoplasm of breast (principal)
CPT/HCPCS: 77063; 77067

== ENCOUNTER → 2019-09-12 11:14 | Outpatient (CLI) | payer MEDICARE, OTHER, SELFPAY ==
--- NOTE | 2019-09-12 | CA_ITS ---
APPROVED REPORT Exam: Exercise Treadmill Technologist: Laurie Churchill, Ht: 5 ft 5 in Wt: 157 lbs BSA: 1.78 m2 HR: 74 bpm BP: 147/80 mmHg Medical History Medical History: Hyperlipidemia Medications: Asa,,,,, Losartan,,,,, Carvedilol,,,,, Hydrochlorat,,,,, DilaTIN,,,,, TegrATOL,,,,, Cardiac Risk Factors: Hyperlipidemia, FHX of CAD Stress Test Details Test: Cliff HR Resting HR: 72 bpm Max Heart Rate (APMHR): 152 bpm Max HR Achieved: 113 bpm Target HR (85% APMHR): 129 bpm % of APMHR: 74 Recovery HR: 87 bpm BP Resting BP: 147.0/80.0 mmHg Max BP: 181.0/80.0 mmHg Recovery BP: 147.0/80.0 mmHg ECG Clinical Exercise duration: 07:30 min Highest Stage Achieved: Exercise capacity: 7.0 METs Stress ECG Conclusion Resting electrocardiogram showed sinus rhythm right bundle branch block, with exercise less than 1.[address] segment depression noted from the baseline EKG. The EKG portion of the exercise Myoview is nondiagnostic due to patient not achieving the target heart rate. Test Summary REST . . . . . . . Standing REST . . . . . . . Standing REST . . . . . . . Sitting REST . . . . . . . Sitting REST 16:12 0.0 0.0 72 . 147/ 80 . . Stage 1 01:00 10.0 1.7 91 . . . . Stage 1 02:00 10.0 1.7 93 . . . . Stage 1 03:00 10.0 1.7 21 . . . . Stage 2 01:00 12.0 2.5 . . . . . Stage 2 02:00 12.0 2.5 . . . . . Stage 2 . . . . . . . Stage held Stage 2 03:00 12.0 2.5 12 . . . . Stage 2 04:00 12.0 2.5 18 . . . . Stage 2 . . . . . . . Stage resumed Stage 2 04:30 12.0 2.5 . . . . Stop exercise at 07:30 RECOVERY 01:00 0.0 0.0 101 . . . . RECOVERY 02:00 0.0 0.0 87 . . . . RECOVERY 03:00 0.0 0.0 84 . 181/ 80 . . RECOVERY 04:00 0.0 0.0 86 . 154/ 82 . . RECOVERY 05:00 0.0 0.0 79 . 164/ 90 . . RECOVERY 05:52 0.0 0.0 81 . 154/ 77 . . Electronically signed by : Jostin Schreiber, 09/14/2019 19:53:57
--- NOTE | 2019-09-12 11:14 | NM_ITS ---
APPROVED REPORT Exam: Nuclear Stress Test Indication: C.P., SOB, HTN, ABN EKG Patient Location: Outpatient Stress Tech: Candace Zhao [place] Tech:Emily Keith ROCKYMarkus RT (R)(N)(M) Ht: 5 ft 5 in Wt: 157 lbs Bra Size: 36C HR: 74 bpm BP: 147/80 mmHg BSA: 1.78 m2 BMI: 26.1 History: C.P., SOB, HTN, ABN EKG Procedure: Patient exercised on Cliff protocol 8 minutes and sec, resting heart rate 74 bpm, resting blood pressure 147/80 mmHg, with exercise maximum heart rate achived was 113 bpm which is Less than 85 % of the maximum predicted heart rate and blood pressure was 181/80 mmHg. Test was stopped due to SOB, C.P.. Patient has Adequate exercise capacity, achieved 7 METs of workload on treadmill, the blood pressure response to exercise was Adequate. Electrocardiogram Resting electrocardiogram showed sinus rhythm right bundle branch block, with exercise there is less than 1.[address] segment depression noted from the baseline EKG. The EKG portion of the exercise Myoview is nondiagnostic as patient did not achieve the target heart rate. Cardiac Stress and Resting SPECT Images: Cardiac Stress and Resting SPECT images were obtained using technetium 99m Myoview 30.5 mCi stress and 10.27 mCi at rest. Gated SPECT for analysis of segmental wall motion and calculation of the ejection fraction also done. Cardiac stress and resting SPECT images show a mild fixed defect in the anterior wall with normal coronary gated SPECT is likely secondary to soft tissue attenuation, no reversible ischemia seen. Computer derived ejection fraction is over 65% with no regional wall motion abnormality, right ventricle is normal size and contractility. Conclusion: 1. The EKG portion of the exercise Myoview is nondiagnostic as patient did not achieve the target heart rate, patient has adequate exercise capacity achieved 7 mets of workload on treadmill, the blood pressure response to exercise was adequate, there was no exercise-induced chest discomfort. 2. No scintigraphic evidence of reversible ischemia seen at this level of exercise, computer derived ejection fraction is over 65% with no regional wall motion abnormality, right ventricle is normal size and contractility. Electronically signed by : Jostin Schreiber, 09/14/2019 19:56:42
--- NOTE | 2019-09-12 11:19 | CA_ITS ---
APPROVED REPORT Garment Cutter: WIL Laterality: Bilateral Study Quality: Good Indications: ap/dyspnea,TIA Doppler Spectral Velocity Analysis dICA (R) 99.20/31.50 cm/s dICA (L) 91.20/24.00 cm/s Monserrat (R) 76.20/22.30 cm/s Monserrat (L) 87.00/22.40 cm/s pICA (R) 62.80/11.40 cm/s pICA (L) 50.50/15.00 cm/s dCCA (R) 79.60/13.00 cm/s dCCA (L) 91.20/15.40 cm/s pCCA (R) 88.80/15.00 cm/s pCCA (L) 97.80/15.40 cm/s Vert (R) 58.20/8.30 cm/s Vert (L) 71.20/15.30 cm/s ICA/CCA 1.30 ICA/CCA 1.00 Findings Duplex evaluation demonstrates stenosis of the right proximal internal carotid artery <20% with PSV <140 cm/sec, EDV <100 cm/sec, and IC/CC Ratio <4.0.Duplex evaluation demonstrates stenosis of the left proximal internal carotid artery <20% with PSV <140 cm/sec, EDV <100 cm/sec, and IC/CC Ratio <4.0. Antegrade flow seen bilateral vertebral arteries. Conclusion No increased velocities to suggest hemodynamically significant stenosis in either internal carotid artery. Electronically signed by : Randall Alvarez MD 09/12/2019 17:36:48
--- NOTE | 2019-09-12 11:19 | CA_ITS ---
APPROVED REPORT EXAM: Comprehensive 2D, Doppler, and color-flow Echocardiogram Urology Physician: RT Yoan(R) Ht: 5 ft 5 in Wt: 157lbs BSA: 1.78 BP: 162/69 mmHg Indications: hx rheumatic fever, SOB, RHONDA, hx TIA 2D Dimensions LVOT 1.77 cm (M/F) 1.5-2.5 M-Mode Dimensions RVDd 3.11 cm (0.9-2.6) LVDd 3.99 cm (3.5-5.7) LVDs 3.07 cm (3.5-5.7) IVSd 0.84 cm (0.6-1.1) PWd 0.87 cm (0.6-1.1) EF (Teich) 46.80% FS 23.10% EDV (Teich) 69.60 mL ESV (Teich) 37.00 mL LV Diastology E/A Ratio 0.57 Mitral Valve MV A Velocity 80.00 (40-130 cm/s) Left Ventricle Left atrium is mildly enlarged, left ventricle is normal size, mild concentric left ventricular hypertrophy, visually estimated ejection fraction 55% with no regional wall motion abnormality, grade 1 diastolic dysfunction seen without tissue Doppler evidence of raise left atrial pressure. Right Ventricle Right atrium and right ventricular normal size and contractility. Aortic Valve Aortic valve is minimally thickened and fibrosed. There is no aortic stenosis or aortic insufficiency. Mitral Valve Mitral valve leaflets are minimally thickened, there is mild mitral regurgitation. Tricuspid Valve Tricuspid valve is grossly normal, there is mild tricuspid regurgitation, tricuspid regurgitation jet velocity is inadequate for calculation of the right ventricular systolic pressure. Pulmonic Valve Pulmonic valve is poorly visualized. Great Vessels Aortic root is normal size. Pericardium No significant pericardial effusion noted. Conclusion 1. Mildly enlarged left atrium, normal left ventricular size, mild concentric left ventricular hypertrophy, visually estimated ejection fraction 55% with no regional wall motion abnormality, grade 1 diastolic dysfunction seen without tissue Doppler evidence of raise left atrial pressure. 2. Mild mitral and tricuspid regurgitation. 3. No significant pericardial effusion noted. Electronically signed by : Jostin Schreiber, 09/14/2019 20:15:51
== END ==
PROVIDERS: PCP Internal Medicine Adolescent Medicine; Visit Provider Internal Medicine Cardiovascular Disease
DX: G47.33 Obstructive sleep apnea (adult) (pediatric) (principal); I00 Rheumatic fever without heart involvement; I10 Essential (primary) hypertension; R01.1 Cardiac murmur, unspecified; R94.31 Abnormal electrocardiogram [ECG] [EKG]; R06.00 Dyspnea, unspecified; R07.9 Chest pain, unspecified; Z86.73 Personal history of transient ischemic attack (TIA), and cerebral infarction without residual deficits
CPT/HCPCS: 78452; 93017; 93306; 93880; A9502; G0399

== ENCOUNTER → 2019-09-16 10:09 | Outpatient (CLI) | payer MEDICARE, OTHER, SELFPAY ==
--- NOTE | 2019-09-16 10:44 | CT_ITS ---
PROCEDURE: CT HEART W CALCIUM SCORE CLINICAL HISTORY: cp/dyspnea COMPARISON: No exams were available for comparison TECHNIQUE: Axial images obtained with sagittal and coronal reformats. All CT scans at the facility use one or more dose reduction, viz: automated exposure control, ma/kV adjustment per patient size (including targeted exams where dose is matched to indication, i.e. head), or iterative reconstruction technique. FINDINGS: Coronary artery calcium score is 2 suggesting very minimal calcific plaque burden with low cardiovascular disease risk There is an incidental 2 mm noncalcified nodule in the lingula and a calcified nodule in the left lower lobe. There is some mild atelectatic or fibrotic change in the left lower lobe IMPRESSION: Minimal calcific plaque burden with low cardiovascular disease risk Dictated by: Randall Alvarez MD 09/16/2019 15:17 Electronically signed by Randall Alvarez MD in [place] 09/16/2019 15:17
[2019-09-16 11:10] LABS: Anion Gap 13.4 mEq/L (5-15); Blood Urea Nitrogen 18 mg/dl (7-17); Calcium 9.5 mg/dl (8.4-10.2); Carbon Dioxide 26 mmol/L (22.0-30.0); Chloride 103 mmol/L (98-107); Estimated Glomerular Filt Rate 83 ml/min (>60); GFR (African American) 101 ML/MIN (>60); Glucose 106 mg/dl (74-100); Potassium 4.4 mmoL/L (3.5-5.1); Sodium 138 mmol/L (136-145)
[2019-09-16 11:19] LABS: NT Pro Brain Natriuretic Pep. 130 pg/mL (0-125)
== END ==
LOC: RAD 09-22 13:55 → LAB 09-22 14:04
PROVIDERS: PCP Internal Medicine Adolescent Medicine; Visit Provider Internal Medicine Cardiovascular Disease
DX: G47.33 Obstructive sleep apnea (adult) (pediatric) (principal); I00 Rheumatic fever without heart involvement; I10 Essential (primary) hypertension; R01.1 Cardiac murmur, unspecified; R06.00 Dyspnea, unspecified; R07.9 Chest pain, unspecified; R94.31 Abnormal electrocardiogram [ECG] [EKG]; Z86.73 Personal history of transient ischemic attack (TIA), and cerebral infarction without residual deficits
CPT/HCPCS: 36415; 75571; 80048; 83880

== ENCOUNTER → 2019-09-16 12:00 | Outpatient (CLI) | payer MEDICARE, OTHER, SELFPAY | PROVIDERS: PCP Internal Medicine Adolescent Medicine; Visit Provider Internal Medicine Cardiovascular Disease | DX: Z12.2 Encounter for screening for malignant neoplasm of respiratory organs (principal) | CPT/HCPCS: 75571 ==

== ENCOUNTER → 2019-10-03 13:47 | Outpatient (CLI) | payer MEDICARE, OTHER, SELFPAY ==
[2019-10-03 14:50] LABS: Chloride 106 mmol/L (98-107); Potassium 3.7 mmoL/L (3.5-5.1); Sodium 136 mmol/L (136-145)
[2019-10-03 14:53] LABS: Anion Gap 11.7 mEq/L (5-15); Blood Urea Nitrogen 21 mg/dl (7-17); Carbon Dioxide 22 mmol/L (22.0-30.0); Estimated Glomerular Filt Rate 71 ml/min (>60); GFR (African American) 86 ML/MIN (>60)
[2019-10-03 14:54] LABS: Glucose 130 mg/dl (74-100)
== END ==
PROVIDERS: Visit Provider Internal Medicine Cardiovascular Disease
DX: G47.33 Obstructive sleep apnea (adult) (pediatric) (principal); I00 Rheumatic fever without heart involvement; I10 Essential (primary) hypertension; R01.1 Cardiac murmur, unspecified; R06.00 Dyspnea, unspecified; R06.83 Snoring; R07.9 Chest pain, unspecified; R09.89 Other specified symptoms and signs involving the circulatory and respiratory systems; R40.0 Somnolence; R53.83 Other fatigue; R94.31 Abnormal electrocardiogram [ECG] [EKG]; Z86.73 Personal history of transient ischemic attack (TIA), and cerebral infarction without residual deficits
CPT/HCPCS: 36415; 80048

== ENCOUNTER → 2020-04-01 10:08 | Outpatient (CLI) | payer MEDICARE, SELFPAY ==
--- NOTE | 2020-04-01 10:14 | XR_ITS ---
PROCEDURE: XR HIP RT 2-3V W/PELVIS Referring Doctor: Vivek Marie Patient Age:69Y CLINICAL INDICATION: RT HIP PAIN Pelvic pain no injury COMPARISON: CR [id number] HIP RT 2-3V W/PELVIS IF PERFOR from 12/22/[address] ABDOMEN PELVIS WO CON from 11/15/2018 FINDINGS: Right hip AP and frog-leg view along with AP pelvis . Right hip intact no fracture or dislocation is evident. No significant degenerative change. No lytic or blastic change. U AP pelvis but no change of versus 2017. Osseous pelvis intact unremarkable. Iliac bones, SI joints, sacrum pubis unremarkable. Bones well mineralized Extensive numerous calcifications at buttocks from injection granulomas; numerous phleboliths at the pelvic basin. IMPRESSION: No acute findings. . Right hip intact. Stable osseous pelvis with observations as above Dictated by: Jose Frazier MD 04/01/2020 10:49 Jose Frazier MD in [place] 04/01/2020 10:49
== END ==
PROVIDERS: PCP Internal Medicine Adolescent Medicine; Visit Provider Internal Medicine Adolescent Medicine
DX: M25.551 Pain in right hip (principal)
CPT/HCPCS: 73502

== ENCOUNTER → 2020-06-07 09:37 | Outpatient (CLI) | payer MEDICARE, SELFPAY ==
[2020-06-07 10:48] LABS: Chloride 104 mmol/L (98-107); Potassium 4.8 mmoL/L (3.5-5.1); Sodium 137 mmol/L (136-145)
[2020-06-07 10:51] LABS: Anion Gap 14.8 mEq/L (5-15); Blood Urea Nitrogen 23 mg/dl (7-17); Carbon Dioxide 23 mmol/L (22.0-30.0); Estimated Glomerular Filt Rate 71 ml/min (>60); GFR (African American) 86 ML/MIN (>60)
[2020-06-07 10:52] LABS: Calcium 9.7 mg/dl (8.4-10.2); Glucose 108 mg/dl (74-100)
== END ==
PROVIDERS: Visit Provider Internal Medicine Cardiovascular Disease
DX: E78.5 Hyperlipidemia, unspecified (principal); G47.33 Obstructive sleep apnea (adult) (pediatric); I10 Essential (primary) hypertension; I65.23 Occlusion and stenosis of bilateral carotid arteries; K21.9 Gastro-esophageal reflux disease without esophagitis; R06.02 Shortness of breath; R42 Dizziness and giddiness; Z86.73 Personal history of transient ischemic attack (TIA), and cerebral infarction without residual deficits; G40.909 Epilepsy, unspecified, not intractable, without status epilepticus; Z79.899 Other long term (current) drug therapy
CPT/HCPCS: 36415; 80048

== ENCOUNTER → 2020-11-10 13:11 | Outpatient (CLI) | payer MEDICARE, SELFPAY ==
--- NOTE | 2020-11-10 13:14 | MM_ITS ---
PROCEDURE: MM DIG SCREENING MAMM BI W/CAD Digital Breast Tomosynthesis Included CLINICAL INDICATION: SCREENING COMPARISON: MG [facility] DIG MAMM-SCREEN CARTER from 07/01/2013 MG [facility] DIG MAMM-SCREEN CARTER W/CAD from 04/21/2016 US BR US BREAST-RT COMPLETE W/AXILLA from 05/05/2016 [facility] MM Dig screening mamm BI w/CAD from 10/26/2017 MG MM DIG SCREENING MAMM BI W/CAD from 05/30/2019 TECHNIQUE: Standard CC and MLO images and 3D Tomosynthesis was obtained. R2 CAD reviewed. FINDINGS: Heterogeneous dense breast tissue. 1.9 cm rounded opacity in the retroareolar region as seen on the MLO view. This appears very slightly lateral to the nipple on the CC view. Spot compression views suggested along with right breast ultrasound. Straight mL view also recommended. There are scattered asymmetric fibroglandular elements noted. The breast has an unremarkable appearance. IMPRESSION: Possible right retroareolar nodule. Recommend spot compression views and ultrasound and straight mL view BI-RAD Category: 0 Need Additional Imaging Evaluation FOLLOW-UP: IMM Immediate Follow-up Recommended (A letter has been sent to the patient regarding results of the study.) Dictated by: Randall Alvarez MD 11/17/2020 19:17 Randall Alvarez MD in [place] 11/17/2020 19:17
== END ==
PROVIDERS: PCP Internal Medicine Adolescent Medicine; Visit Provider Internal Medicine Adolescent Medicine
DX: Z12.31 Encounter for screening mammogram for malignant neoplasm of breast (principal)
CPT/HCPCS: 77063; 77067

== ENCOUNTER → 2021-01-05 12:47 | Outpatient (CLI) | payer MEDICARE, SELFPAY ==
--- NOTE | 2021-01-05 12:57 | MM_ITS ---
PROCEDURE: MM DIG MAMM DX UNILAT RT CAD U/S BREAST RIGHT COMPLETE CLINICAL INDICATION: ABN MAMM COMPARISON: [facility] MM Dig screening mamm BI w/CAD from 10/26/2017 MG MM DIG SCREENING MAMM BI W/CAD from 05/30/2019 MG MM DIG SCREENING MAMM BI W/CAD from 11/10/2020 US US BREAST RT COMPLETE from 01/05/2021 TECHNIQUE: Problem solving views performed along with right breast ultrasound FINDINGS: The asymmetric density in the retroareolar region does appear to compress out as fibroglandular tissue and does not appear significantly changed.. No malignant appearing mass or malignant-appearing microcalcification. Right breast ultrasound: No cystic or solid lesions evident. No retroareolar nodules apparent. IMPRESSION: The area of asymmetry is felt to be related to asymmetric fibroglandular tissue and does not appear significantly changed. No evidence of malignancy. Benign findings. Recommend continued screening mammogram in October of 2021 BI-RAD Category: 2 Benign Finding FOLLOW-UP: 1 YR 1 Year Follow-up (A letter has been sent to the patient regarding results of the study.) Dictated by: Randall Alvarez MD 01/10/2021 10:19 Randall Alvarez MD in [place] 01/10/2021 10:21
== END ==
PROVIDERS: PCP Internal Medicine Adolescent Medicine; Visit Provider Internal Medicine Adolescent Medicine
DX: R92.8 Other abnormal and inconclusive findings on diagnostic imaging of breast (principal)
CPT/HCPCS: 76641; 77061; 77065; G0279

== ENCOUNTER → 2021-02-26 11:16 | Outpatient (CLI) | payer MEDICARE, SELFPAY ==
--- NOTE | 2021-02-26 11:26 | XR_ITS ---
PROCEDURE INFORMATION: Exam: XR Right Knee Exam date and time: 02/26/2021 11:26 AM Age: 70 years old Clinical indication: Pain; Knee; Right; Additional info: Right knee pain- felt pop in knee TECHNIQUE: Imaging protocol: XR Right knee. Views: 3 views. COMPARISON: No relevant prior studies available. FINDINGS: Bones/joints: No acute fracture or dislocation. Soft tissues: Suprapatellar joint effusion. IMPRESSION: 1. No acute fracture or dislocation. 2. Suprapatellar joint effusion.
== END ==
PROVIDERS: PCP Internal Medicine Adolescent Medicine; Visit Provider Nurse Practitioner Family
DX: M25.561 Pain in right knee (principal)
CPT/HCPCS: 73562

== ENCOUNTER → 2021-02-28 09:43 | Outpatient (CLI) | payer MEDICARE, SELFPAY ==
[2021-02-28 14:10] LABS: Basophils # 0.1 K/mm3 (0-0.2); Basophils % 1.2 % (0.1-2.0); Eosinophils % 0.1 % (0.1-12.0); Hematocrit 44.5 % (37.0-47.0); Hemoglobin 14.6 g/dL (12.2-16.2); Lymphocytes # 1.5 K/mm3 (0.7-4.5); Mean Corpuscular HGB Conc 32.7 g/dL (31.8-35.4); Mean Corpuscular Hemoglobin 30.9 pg (27.0-31.2); Mean Corpuscular Volume 94.6 fl (81-99); Mean Platelet Volume 8.9 fl (7.4-10.4); Monocytes # 0.4 K/mm3 (0.1-1.0); Monocytes % 5.2 % (1.7-9.3); Neutrophils # 5.2 K/mm3 (1.8-7.8); Neutrophils % 72.5 % (37.0-80.0); Platelet Count 309 K/mm3 (142-424); Red Blood Count 4.71 M/mm3 (4.20-5.40); Red Cell Distribution Width 13.1 % (11.5-17.5); White Blood Count 7.1 K/mm3 (4.8-10.8)
[2021-02-28 14:23] LABS: Chloride 101 mmol/L (98-107); Potassium 4.7 mmoL/L (3.5-5.1); Sodium 139 mmol/L (136-145)
[2021-02-28 14:26] LABS: Alanine Aminotransferase 24 U/L (12-78); Albumin Level 4.5 g/dl (3.5-5.0); Albumin/Globulin Ratio 1.7 (1.1-1.8); Alkaline Phosphatase 153 U/L (38-126); Anion Gap 13.7 mEq/L (5-15); Aspartate Amino Transferase 33 U/L (14-36); Bilirubin,Total 0.3 mg/dl (0.2-1.3); Blood Urea Nitrogen 19 mg/dl (7-17); Calcium 10.2 mg/dl (8.4-10.2); Carbon Dioxide 29 mmol/L (22.0-30.0); Chol/HDL Ratio 2.9 (1-3.5); Cholesterol 213 mg/dl (140-200); Estimated Glomerular Filt Rate 83 ml/min (>60); GFR (African American) 100 ML/MIN (>60); Globulin 2.6 g/dL (1.3-3.2); Glucose 109 mg/dl (74-100); HDL Cholesterol 74 mg/dl (40-60); Total Protein,Serum 7.1 g/dl (6.3-8.2); Triglycerides 85 mg/dl (30-150); VLDL Cholesterol 17 mg/dL (0-40)
[2021-02-28 14:38] LABS: Direct LDL Cholesterol 93.61 mg/dL (100-129)
[2021-02-28 15:24] LABS: Valproic Acid, (Depakene) < 10.0 ug/ml (50-100)
== END ==
PROVIDERS: Visit Provider Internal Medicine Adolescent Medicine
DX: I10 Essential (primary) hypertension (principal); R56.9 Unspecified convulsions; Z51.81 Encounter for therapeutic drug level monitoring
CPT/HCPCS: 36415; 80053; 80061; 80164; 85025

== ENCOUNTER 2021-02-28 10:43 | Outpatient (RCR) | payer MEDICARE, SELFPAY | END 2021-02-28 11:51 | disposition home or self-care (01) | LOC: PT 10:43 | PROVIDERS: Visit Provider Internal Medicine Adolescent Medicine | DX: M25.561 Pain in right knee (principal) | CPT/HCPCS: 97760 ==

== ENCOUNTER → 2021-03-08 15:20 | Outpatient (CLI) | payer MEDICARE, SELFPAY ==
--- NOTE | 2021-03-08 15:24 | MR_ITS ---
PROCEDURE: MR KNEE RT WO CON CLINICAL INDICATION: RIGHT MEDIAL KNEE PAIN COMPARISON: CR XR KNEE RT 3V from 02/26/2021 TECHNIQUE: Routine multiplanar multi echo sequences are performed without gadolinium enhancement. FINDINGS: The cruciate ligaments, collateral ligaments, patellar tendon, and quadriceps tendon have an unremarkable appearance. There is a complex tear involving the posterior horn of the medial meniscus. There is a moderate amount of bone marrow edema involving the central and medial aspect of the proximal tibia as well as the medial femoral condyle. Along the articular surface of the medial femoral condyle there is a oval area of isointense T2 signal and hypointense T1 signal measuring approximately 10 mm and may be due to an area osteo necrosis. There is a thin area of decreased T2 and T1 signal in the cortical region of the medial tibial plateau possibly due to osteosclerosis. There is a moderate amount of soft tissue edema along the and a anterior aspect of the tibia medially and in the popliteal region. There is a small knee joint effusion. No obvious fracture. IMPRESSION: 1. Complex tear of the posterior horn of the medial meniscus. 2. Bone marrow edema of the medial femoral condyle and medial tibial plateau. This could be due to bone contusion or bone marrow edema from underlying inflammatory change. 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 3. Small knee joint effusion. Moderate amount of soft tissue edema about the knee. Dictated by: Randall Alvarez MD 03/09/2021 12:38 Randall Alvarez MD in [place] 03/09/2021 12:38
== END ==
PROVIDERS: PCP Internal Medicine Adolescent Medicine; Visit Provider Internal Medicine Adolescent Medicine
DX: M25.561 Pain in right knee (principal)
CPT/HCPCS: 73721

== ENCOUNTER → 2022-01-09 07:40 | Outpatient (CLI) | payer MEDICARE, OTHER, SELFPAY ==
--- NOTE | 2022-01-09 07:45 | MM_ITS ---
PROCEDURE INFORMATION: Exam: MG Bilateral Screening 3D Mammography Exam date and time: 01/09/2022 7:58 AM Age: 71 years old Clinical indication: Screening examination. Her paternal grandmother had breast cancer. TECHNIQUE: Imaging protocol: Bilateral Screening tomosynthesis and 2D mammography including computer-aided detection (CAD) when performed. COMPARISON: 1. MG MM DIG MAMM DX UNILAT RT CAD 01/05/2021 12:54 PM 2. MG MM DIG SCREENING MAMM BI W/CAD 11/10/2020 1:56 PM 3. MG MM DIG SCREENING MAMM BI W/CAD 05/30/2019 8:26 AM 4. MG SCBI MM Dig screening mamm BI w/CAD 10/26/2017 8:35 AM FINDINGS: MAMMOGRAPHY: Breast composition: The breasts are heterogeneously dense, which may obscure small masses. Mass: None. Architectural distortion: None. Calcifications: Grouping of calcifications in the right upper inner quadrant posterior 3rd. Asymmetric density: None. Skin thickening: None. Axillary adenopathy: None. IMPRESSION: Patient will be recalled for right diagnostic magnification views in CC and true lateral for further evaluation of right breast calcifications. ASSESSMENT: BI-RADS Category 0: Incomplete- Need Additional Imaging Evaluation and/or Prior Mammograms for Comparison
== END ==
PROVIDERS: PCP Internal Medicine Adolescent Medicine; Visit Provider Internal Medicine Adolescent Medicine
DX: Z12.31 Encounter for screening mammogram for malignant neoplasm of breast (principal)
CPT/HCPCS: 77063; 77067

== ENCOUNTER → 2022-01-20 14:15 | Outpatient (CLI) | payer MEDICARE, OTHER, SELFPAY ==
--- NOTE | 2022-01-20 | MM_ITS ---
PROCEDURE INFORMATION: Exam: MG Right Diagnostic Breast Tomosynthesis Exam date and time: 01/20/2022 2:43 PM Age: 71 years old Clinical indication: Recall on the basis of screening mammogram 01/09/2022 for further evaluation of calcifications in the right upper inner quadrant. TECHNIQUE: Imaging protocol: Right Diagnostic tomosynthesis and 2D mammography including computer-aided detection (CAD) when performed. Unilateral or bilateral exam. COMPARISON: 1. MG MM DIG SCREENING MAMM BI W/CAD 01/09/2022 7:58 AM 2. MG MM DIG MAMM DX UNILAT RT CAD 01/05/2021 12:54 PM 3. MG MM DIG SCREENING MAMM BI W/CAD 11/10/2020 1:56 PM 4. MG MM DIG SCREENING MAMM BI W/CAD 05/30/2019 8:26 AM FINDINGS: MAMMOGRAPHY: Magnification views show 3 punctate benign-appearing calcifications in the upper inner quadrant, posterior 3rd. No suspicious morphology. IMPRESSION: Probably benign calcifications, suggest six-month follow-up right diagnostic CC and MLO views, unless otherwise clinically indicated. ASSESSMENT: BI-RADS Category 3: Probably benign
== END ==
PROVIDERS: PCP Internal Medicine Adolescent Medicine; Visit Provider Internal Medicine Adolescent Medicine
DX: R92.8 Other abnormal and inconclusive findings on diagnostic imaging of breast (principal)
CPT/HCPCS: 77061; 77065; G0279

== ENCOUNTER → 2022-07-10 14:30 | Outpatient (CLI) | payer MEDICARE, OTHER, SELFPAY ==
[2022-07-10 16:39] LABS: Alanine Aminotransferase 18 U/L (12-78); Albumin Level 4.5 g/dl (3.5-5.0); Alkaline Phosphatase 125 U/L (38-126); Aspartate Amino Transferase 23 U/L (14-36); Bilirubin,Indirect 0.3 mg/dL (0.0-0.9); Bilirubin,Total 0.3 mg/dl (0.2-1.3); Bilirubin,Unconjugated 0.3 mg/dL (0.0-1.1); Chol/HDL Ratio 2.4 (1-3.5); Cholesterol 191 mg/dl (140-200); HDL Cholesterol 79 mg/dl (40-60); Total Protein,Serum 6.8 g/dl (6.3-8.2); Triglycerides 72 mg/dl (30-150); VLDL Cholesterol 14 mg/dL (0-40)
[2022-07-10 16:51] LABS: Direct LDL Cholesterol 78.24 mg/dL (100-129)
== END ==
PROVIDERS: PCP Internal Medicine Adolescent Medicine; Visit Provider Nurse Practitioner
DX: I11.9 Hypertensive heart disease without heart failure (principal); E78.5 Hyperlipidemia, unspecified; I65.23 Occlusion and stenosis of bilateral carotid arteries
CPT/HCPCS: 36415; 80061; 80076

== ENCOUNTER → 2022-07-21 12:30 | Outpatient (CLI) | payer MEDICARE, OTHER, SELFPAY ==
--- NOTE | 2022-07-21 12:35 | MM_ITS ---
PROCEDURE INFORMATION: Exam: MG Right Diagnostic Breast Tomosynthesis Exam date and time: 07/21/2022 12:56 PM Age: 71 years old Clinical indication: Short-term radiographic followup; Right breast; calcifications TECHNIQUE: Imaging protocol: Right Diagnostic tomosynthesis and 2D mammography including computer-aided detection (CAD) when performed. Unilateral or bilateral exam. COMPARISON: 1. MG MM DIG MAMM DX UNILAT RT CAD 01/20/2022 2:43 PM 2. MG MM DIG SCREENING MAMM BI W/CAD 01/09/2022 7:58 AM FINDINGS: MAMMOGRAPHY: The breast tissue is extremely dense, which lowers the sensitivity of mammography. There is no stellate mass, architectural distortion or suspicious microcalcifications in either breast to suggest malignancy. Benign calcifications in the posterior right medial breast. No skin thickening or axillary adenopathy. IMPRESSION: No mammographic evidence of malignancy. Annual bilateral mammographic screening is recommended in December 2022 unless otherwise clinically indicated. ASSESSMENT: BI-RADS Category 2: Benign
== END ==
PROVIDERS: PCP Internal Medicine Adolescent Medicine; Visit Provider Internal Medicine Adolescent Medicine
DX: R92.8 Other abnormal and inconclusive findings on diagnostic imaging of breast (principal)
CPT/HCPCS: 77061; 77065; G0279

== ENCOUNTER → 2022-09-13 09:47 | Outpatient (CLI) | payer MEDICARE, OTHER, SELFPAY ==
--- NOTE | 2022-09-13 09:55 | XR_ITS ---
FINAL REPORT CLINICAL HISTORY: RT HIP PAIN X 5-6 MOS NKT, PAIN WORSENED X 2-3 MOS. COMPARISON: None FINDINGS: RIGHT HIP Two views of the right hip demonstrate no acute fracture or dislocation. The joint spaces appear normal. The visualized bony structures are well aligned. There are soft tissue calcifications in the upper gluteal regions bilaterally. IMPRESSION: No acute bony abnormality. Reviewed, Interpreted and Dictated by Colin Lomas III, MD Transcribed by Jaqui Roe Authenticated and [facility]
== END ==
PROVIDERS: PCP Internal Medicine Adolescent Medicine; Visit Provider Internal Medicine Adolescent Medicine
DX: M25.551 Pain in right hip (principal)
CPT/HCPCS: 73502

== ENCOUNTER → 2022-10-20 09:29 | Outpatient (CLI) | payer MEDICARE, OTHER, SELFPAY ==
--- NOTE | 2022-10-20 09:41 | XR_ITS ---
FINAL REPORT CLINICAL HISTORY: Rt knee pain COMPARISON: 02/26/2021 FINDINGS: AP, lateral and oblique views of the right knee were obtained. There is no acute fracture. Degenerative joint disease has progressed from prior. There is a subchondral lucency in the medial femoral condyle which is new and worrisome for osteochondral injury. The soft tissues are normal. There is a large joint effusion. IMPRESSION: Findings concerning for new osteochondral lesion of the medial femoral condyle. Progression of degenerative disease. MRI recommended. Reviewed, Interpreted and Dictated by Amie Reardon MD Transcribed by Jaqui Roe Authenticated and . [facility]
== END ==
PROVIDERS: PCP Internal Medicine Adolescent Medicine; Visit Provider Orthopaedic Surgery
DX: M17.11 Unilateral primary osteoarthritis, right knee (principal)
CPT/HCPCS: 73562

== ENCOUNTER → 2023-01-02 09:35 | Outpatient (CLI) | payer MEDICARE, OTHER, SELFPAY ==
--- NOTE | 2023-01-02 09:47 | ECG_ITS ---
APPROVED REPORT Exam: Resting ECG HR:75 bpm ECG Measurements Heart Rate 75 AXES CA 170 P 55 QRSd 149 QRS 76 QT 405 T 49 QTc 435 Conclusion SINUS RHYTHM RIGHT BUNDLE BRANCH BLOCK [120+ ms QRS DURATION, UPRIGHT V1, 40+ ms S IN I/aVL/V4/V5/V6] ABNORMAL ECG UNCONFIRMED REPORT Electronically signed by : Nikhil Leon MD 01/03/2023 08:48:49
--- NOTE | 2023-01-02 09:55 | XR_ITS ---
FINAL REPORT TECHNIQUE: Chest PA & Lateral CLINICAL HISTORY: PRe Op- SOA ON EXERTION FINDINGS: 2 views of the chest were performed. The heart size is normal. The mediastinum is within normal limits. There is no acute cardiopulmonary process. There are no pleural effusions. There is no pneumothorax. The bony thorax appears intact. IMPRESSION: No acute cardiopulmonary process. Reviewed, Interpreted and Dictated by Colin Lomas III, MD Transcribed by Denzel Snowden Authenticated and . [facility]
[2023-01-02 10:35] LABS: Basophils % 0.4 % (0.1-2.0); Eosinophils # 0.1 K/mm3 (0.0-0.4); Eosinophils % 0.8 % (0.1-12.0); Hemoglobin 14.7 g/dL (12.2-16.2); Lymphocytes # 1.6 K/mm3 (0.7-4.5); Lymphocytes % 25.1 % (10-50); Mean Corpuscular HGB Conc 30.7 g/dL (31.8-35.4); Mean Corpuscular Hemoglobin 29.6 pg (27.0-31.2); Mean Corpuscular Volume 96.4 fl (81-99); Mean Platelet Volume 8.5 fl (7.4-10.4); Monocytes # 0.3 K/mm3 (0.1-1.0); Monocytes % 4.3 % (1.7-9.3); Neutrophils # 4.4 K/mm3 (1.8-7.8); Neutrophils % 69.5 % (37.0-80.0); Platelet Count 173 K/mm3 (142-424); Red Blood Count 4.98 M/mm3 (4.20-5.40); Red Cell Distribution Width 13.3 % (11.5-17.5); White Blood Count 6.3 K/mm3 (4.8-10.8)
[2023-01-02 11:19] LABS: Alanine Aminotransferase 22 U/L (12-78); Albumin Level 4.5 g/dl (3.5-5.0); Albumin/Globulin Ratio 1.7 (1.1-1.8); Alkaline Phosphatase 118 U/L (38-126); Anion Gap 14.2 mEq/L (5-15); Aspartate Amino Transferase 28 U/L (14-36); Bilirubin,Total 0.3 mg/dl (0.2-1.3); Blood Urea Nitrogen 14 mg/dl (7-17); Calcium 9.1 mg/dl (8.4-10.2); Carbon Dioxide 22 mmol/L (22.0-30.0); Chloride 106 mmol/L (98-107); Estimated Glomerular Filt Rate 98 ml/min (>60); GFR (African American) 119 ML/MIN (>60); Globulin 2.7 g/dL (1.3-3.2); Glucose 110 mg/dl (74-100); Potassium 4.2 mmoL/L (3.5-5.1); Sodium 138 mmol/L (136-145); Total Protein,Serum 7.2 g/dl (6.3-8.2)
[2023-01-02 12:02] LABS: Hemoglobin A1C 4.9 % (4.0-6.0)
== END ==
PROVIDERS: Orthopaedic Surgery; PCP Internal Medicine Adolescent Medicine; Visit Provider Orthopaedic Surgery
DX: M17.11 Unilateral primary osteoarthritis, right knee (principal); E11.9 Type 2 diabetes mellitus without complications; Z01.818 Encounter for other preprocedural examination; T42.0X1A Poisoning by hydantoin derivatives, accidental (unintentional), initial encounter
CPT/HCPCS: 36415; 71046; 80053; 83036; 85025; 93005

== ENCOUNTER 2023-01-09 13:39 | Observation (INO) | payer MEDICARE, OTHER, SELFPAY ==
--- NOTE | 2022-12-15 12:54 | SW/DCPLANNER ---
I spoke w/ this patient regarding plans for discharge after TKA. Patient stated that she resides at home alone but will have family involved and neighbors. Originally patient stated that she wanted to do outpatient PT in [place]: after discussion patient decided to do home health services. I will follow up w/ patient after surgery and further discuss discharge plans. Patient has no further needs at this time.
[2023-01-05 14:04] VITALS: BMI 24.3
[2023-01-09] VITALS (19 sets, daily range): BP systolic 129–157; BP diastolic 57–86; PULSE 80–98; RESP 14–18; TEMP 34.5–37; O2SAT 90–100
--- NOTE | 2023-01-09 10:21 | EXP.ANES.CKL ---
[facility] Disclaimer: The information contained in this section may have been updated after the patient was seen, as this information can be updated by other users. Medical History Bilateral carotid artery stenosis Bronchitis Dizziness Heart murmur History of anemia History of cataract History of gastroesophageal reflux (GERD) HLD (hyperlipidemia) Hx of cataract Hx of rheumatic fever Hx of varicose veins Seizure disorder Sleep apnea Surgical History H/O rotator cuff surgery History of cholecystectomy History of colonoscopy History of hysterectomy History of nasal surgery Hx of cataract surgery Hx of tonsillectomy Family History Other Cancer Heart disease Hypertension Stroke Social History Smoking Status: Never smoker alcohol intake: never substance use type: denies use current occupational status: retired Travel in the last 8 weeks: None household members: none housing: house caffeine: Yes [facility] Anesthesia Checklist Patient Identification Patient Identification: Arm Band Structural Data Admitted From: Home Planned Operative Procedure/s: Right Total Knee Arthroplasty Consent for Planned Operative Procedure(s) Verified: Yes Verified Documents: Surgical Consent and History and Physical NPO Status Verified Time NPO: 00:00 Additional verifications Anesthesia Reactions: No Hx Blood Transfusions: No Blood Transfusion Reaction: No Airway Assessment Mallampati Score:: Class II C-Spine Mobility Assessed: Yes TMJ Mobility Assessed: Yes Dentition: Edentulous Neurological Assessment Level of Consciousness: Awake and Alert Anesthesia Plan Anesthesia Risk discussed: Yes Anesthesia Plan: Verified ASA Class: III Anesthesia Type: MAC w/Spinal (with Adductor Canal nerve block. Risks/benefits explained. Pt verbalized understanding of plan of care)
--- NOTE | 2023-01-09 13:11 | EXP.OP.NOTE ---
Date of procedure: 01/09/23 Pre-op Diagnosis:: Right knee osteoarthritis Post-op Diagnosis:: Right knee osteoarthritis Procedure performed:: Right total knee arthroplasty Surgeon:: Alexx Pantoja MD R D Manager(s):: None INCOME TAX ADJUSTER:: Randall Kaur and Other Anesthesia: GETA, regional and local Estimated blood loss (mL): 5 Clinical Note:: Hazel is a very pleasant 72-year-old female with activity limiting right knee pain secondary to osteoarthritis affecting her quality of life. X-rays in September revealed severe tricompartmental degenerative changes in a varus knee with complete loss of medial joint space. No relief with a cortisone injection in July. She takes occasional ibuprofen. 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 We discussed all the risks, benefits and alternatives to right total knee replacement and she agreed to proceed. Surgical consent form was signed. Operative findings:: Right knee severe tricompartmental degenerative changes in a varus knee with complete loss of medial joint space and marginal osteophyte formation. Operative note:: The patient was seen in the preoperative holding area. The right knee was marked to confirm for and the correct operative site. She received Ancef 2 g IV prophylactic antibiotics within 1 hour of incision time. Also received a gram of TXA just prior to the incision and as we are closing to help minimize bleeding. She was seen by anesthesia. She was brought back to the OR. Spinal was attempted but was unsuccessful. Therefore general anesthesia was performed without difficulty. A nonsterile tourniquet was applied to the right thigh. Bump placed underneath the right hip. Right lower extremity prepped and draped in usual sterile fashion. Timeout performed to confirm right total knee arthroplasty and patient Hazel Abdi. The right lower extremity was exsanguinated with an Esmarch. Tourniquet inflated to 250 mmHg. With the knee flexed a midline incision was made with a 10 blade scalpel. This was carried down through subcutaneous tissue. Adequate hemostasis maintained with the Bovie electrocautery. A medial parapatellar arthrotomy was made with a fresh 10 blade scalpel. Patella was everted. Patella fat pad and anterior femoral fat pads were excised. Marginal osteophytes were removed with a rongeur. A medial release was performed with the Bovie electrocautery for this varus knee. Medial and lateral Z retractors were placed. Whitesides line was marked. The distal femur was then drilled and the intramedullary distal femoral cutting guide was pinned in place at 5 degrees valgus. We then made a distal femoral cut and removed removing approximately 1 centimeter of bone from the distal femur. The distal femur was then sized to a size 4 set at 3 degrees of external rotation. The 4-in-1 cutting guide was pinned in place. Anterior and posterior cuts were made as were chamfer cuts with the oscillating saw. Cut bone was then removed. We turned our attention to the tibia. A PCL retractor was placed as were medial and lateral Hohmann retractors. Using the extramedullary tibial cutting guide we removed 5 mm of bone for the low medial side and a centimeter from the high lateral side with the oscillating saw. This cut was made at a 3 degree posterior slope. Medial and lateral menisci were excised as were posterior osteophytes. With the [address] we achieved full extension with excellent alignment. We finished preparation of the tibia sizing the tibia to a size 3 tibial tray. This was centered off the medial third of the tibial tubercle. Tray was pinned in place with small pins. We then punched the tibia with the tibial punch. We placed the size 4 trial femur and this was pinned in place. Box cut was made with the reamer and the body osteotome. We then placed a 9 mm trial poly. With these trial components in place there was full range of motion with excellent alignment and stable through
--- NOTE | 2023-01-09 13:23 | XR_ITS ---
FINAL REPORT CLINICAL HISTORY: Status post right knee replacement FINDINGS: RIGHT KNEE 2 views of the knee were obtained. The patient is status post right total knee arthroplasty. The hardware appears intact. There is no acute bony abnormality. IMPRESSION: Postoperative changes from right total knee arthroplasty with no immediate complications. Reviewed, Interpreted and Dictated by Colin Lomas III, MD Transcribed by Cami Li Authenticated and [facility]
--- NOTE | 2023-01-09 14:13 | HMH.PHAINT1 ---
Pharmacy Intervention Comments: MEDICATION RECONCILIATION COMPLETED ON PATIENT USING EXTERNAL FILL HISTORY FROM PHARMACY AND LIST FROM SURGERY OFFICE. -[facility], YAMILETD
--- NOTE | 2023-01-09 14:23 | P.PNANES_ITS ---
[facility] Anesthesia Record Part I Anesthesia Record I Intake, IV Amount: 900 Hydration: Adequate Estimated blood loss (mL): 50 Urine output (mL): 0 Blood Products used (#): none Blood Pressure: 136/71 SaO2: 90 Pulse Rate: 91 Airway Patency: Patent Respiratory Rate: 14 Temperature: 96.7 F Patient is:: Awake, Drowsy and Stable Stable to PACU at:: 13:15
--- NOTE | 2023-01-09 15:24 | PC.NURSE ---
bare hugger applied at 1415
--- NOTE | 2023-01-09 15:43 | SUR.OPER ---
CONTRERAS Kathleen transferred patient to PACU and gave report only.
--- NOTE | 2023-01-09 19:13 | PC.NURSE ---
dsg cdi to rt neck from IJ. 22g iv placed in rt fa. bare hugger taken off around 1730 with rectal temp of 97.7 due to pt refusal. cb within reach. pt pleasant, pain managed with prescribed pain meds. no needs at this time.
[2023-01-10] VITALS: BP 145/72; PULSE 103; RESP 16; TEMP 37.2; O2SAT 98
[2023-01-10 04:00] VITALS: BP 142/67; PULSE 98; RESP 16; TEMP 37.5; O2SAT 97; BMI 24.5
[2023-01-10 07:04] LABS: Basophils % 0.5 % (0.1-2.0); Hematocrit 40.1 % (37.0-47.0); Hemoglobin 13.3 g/dL (12.2-16.2); Lymphocytes # 0.7 K/mm3 (0.7-4.5); Lymphocytes % 8.8 % (10-50); Mean Corpuscular HGB Conc 33.3 g/dL (31.8-35.4); Mean Corpuscular Hemoglobin 33.3 pg (27.0-31.2); Mean Corpuscular Volume 100.1 fl (81-99); Mean Platelet Volume 8.1 fl (7.4-10.4); Monocytes # 0.7 K/mm3 (0.1-1.0); Monocytes % 8.8 % (1.7-9.3); Neutrophils # 6.7 K/mm3 (1.8-7.8); Neutrophils % 81.8 % (37.0-80.0); Platelet Count 111 K/mm3 (142-424); Red Cell Distribution Width 13.2 % (11.5-17.5); White Blood Count 8.2 K/mm3 (4.8-10.8)
[2023-01-10 07:18] LABS: Chloride 107 mmol/L (98-107); Sodium 137 mmol/L (136-145)
[2023-01-10 07:19] LABS: Potassium 4.1 mmoL/L (3.5-5.1)
[2023-01-10 07:21] LABS: Blood Urea Nitrogen 11 mg/dl (7-17); Creatinine Clearance Estimated 52 mL/min (50-200); Estimated Glomerular Filt Rate 98 ml/min (>60); GFR (African American) 119 ML/MIN (>60)
[2023-01-10 07:22] LABS: Anion Gap 12.1 mEq/L (5-15); Calcium 8.3 mg/dl (8.4-10.2); Carbon Dioxide 22 mmol/L (22.0-30.0); Glucose 124 mg/dl (74-100)
[2023-01-10 07:28] VITALS: BP 151/76; PULSE 100; RESP 17; TEMP 37.1; O2SAT 96
--- NOTE | 2023-01-10 07:58 | ECG_ITS ---
APPROVED REPORT Exam: Resting ECG HR:105 bpm ECG Measurements Heart Rate 105 AXES OK 152 P 70 QRSd 144 QRS 74 QT 322 T 68 QTc 383 Conclusion SINUS TACHYCARDIA RIGHT BUNDLE BRANCH BLOCK [120+ ms QRS DURATION, UPRIGHT V1, 40+ ms S IN I/aVL/V4/V5/V6] ABNORMAL ECG UNCONFIRMED REPORT Electronically signed by : Nikhil Leon MD 01/13/2023 11:08:10
--- NOTE | 2023-01-10 08:22 | P.PNANES_ITS ---
[facility] Anesthesia Record Part II Anesthesia Record Part II Discharge Time: 14:00 Destination: Surgical Day Care (OP Surgery) PACU nurse assessment reviewed?: Yes Patient Condition:: Good Anesthesia Complications:: None Swallowing reflex intact?: Yes Airway Patency: Patent Cyanosis?: No Blood Pressure: 147/57 SaO2: 95 Respiratory Rate: 17 Pulse Rate: 84 Temperature: 97.9 F Mental Status: Alert & Oriented Pain level:: 0 Nausea and/or vomitting:: None Intake, IV Amount: 900 Hydration: Adequate
[2023-01-10 08:24] VITALS: BP 147/57; PULSE 84; RESP 17; TEMP 36.6; O2SAT 95
--- NOTE | 2023-01-10 10:29 | HMH.OTEV ---
OT Inpatient Evaluation Rehab OT IP Evaluation Start: 01/09/23 13:23 Freq: ONCE Status: Active Protocol: Document 01/10/23 10:17 SARITAJAGUAR (Rec: 01/10/23 10:29 MISTY [id number]) Rehab OT IP Assessment Subjective History Hazel is a very pleasant 72- year-old female with activity limiting right knee pain secondary to osteoarthritis affecting her quality of life. X-rays in September revealed severe tricompartmental degenerative changes in a varus knee with complete loss of medial joint space. No relief with a cortisone injection in July. She takes occasional ibuprofen. 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 We discussed all the risks, benefits and alternatives to right total knee replacement and she agreed to proceed. Surgical consent form was signed. Operative findings:: Right knee severe tricompartmental degenerative changes in a varus knee with complete loss of medial joint space and marginal osteophyte formation. I can get up. Subjective Instructed Patient on proper hand and foot placement to complete supine->sit @ EOB-> stand -> ambulate within the room and hallways. Objective Patient Orientation Person,Place,Name,Age,Birthday ,Year Upper Extremity Gross ROM WFL Bed Mobility bed mobility - supine/sit Assist Level Supervision/Stand by Transfer Training Sit/Stand/Pivot Transfer Assist Level Contact Guard/Hand Hold Chair Transfer Ability Contact Guard/Hand Hold Chair Transfer Technique Sit to/from Ambulatory Chair Transfer Assistive Devices Rolling Walker Rehab OT IP prob,goals,plan Problems Date of Evaluation: 01/10/23 OT IP Problems Bed Mobility,Transfers,Balance ,Self care,Safety Rehab Potential Rehab Potential
--- NOTE | 2023-01-10 10:34 | HMH.PTEV ---
Physical Therapy Evaluation Rehab PT IP Evaluation Start: 01/09/23 13:23 Freq: ONCE Status: Active Protocol: Document 01/10/23 10:31 ARNALDO (Rec: 01/10/23 10:34 PHOKUNAL [id number]) Subjective/History History History 72 yowf adm to [facility] for R TKA. She reports she lives alone, 2 -3 steps to enter the home, and is generally independent with all mobility and ADLs without AD. Subjective Subjective Pt c/o pain in the R LE as expected. I'm ready to get up and get out of here. New diagnosis of cancer in past 12 No months? Rehab PT IP Eval Objective Appearance Patient Behavior Appropriate Patient Orientation Person,Place,Time Difficulty following instructions none Speech Pattern Clear Ambulation Patient Able to Ambulate Yes Ambulation Observation IP General Gait Pattern Observation Antalgic Gait Ambulation Distance (feet) 50 Ambulation Assistive Device Rolling Walker Ambulation Ability Supervision/Stand by Balance Ability to Arise Able, uses arms to help Sitting Balance Steady, safe Standing Balance Steady, wide stance Dynamic Sitting Balance Ability Good Dynamic Standing Balance Ability Good Transfers Bed Transfer Ability Supervision/Stand by Chair Transfer Ability Supervision/Stand by Sit to Stand Bed Transfer Ability Supervision/Stand by Sit to Stand Chair Transfer Ability Supervision/Stand by Rehab PT IP prob,goals,plan Problems Date of Evaluation: 01/10/23 PT IP Problems Bed Mobility,Transfers,Gait, Self care Rehab Potential Rehab Potential Good Equipment Needs Assistive Devices Rolling / Wheeled Walker Plan PT Intervention Plan Bed Mobility,Transfers,Gait, Self care,Therapeutic Exercise PT Plan Frequency BID Duration LOS Discharge Goals Bed Transfer Ability Independent Sit to Stand Chair Transfer Ability Independent Ambulation Assistive Device Rolling Walker Ambulation Distance (feet) 60 Discharge Plan PT Discharge Plan Pt is currently appropriate to return home once medically stable for d/c. Eval Complexity Eval Charge Codes 15358 - High Complexity PHYSICIAN CERTIFICATION: I certify the specified therapy services for Hazel Abdi are required, authorized, and reviewed every 30 days.
--- NOTE | 2023-01-10 12:09 | EXP.DC.SUM ---
General Admission date:: 01/09/23 Discharge date: 01/10/23 HPI HPI HPI: 72-year-old female admitted to orthopedics for knee replacement. This occurred on the day of admission with uncomplicated surgical course. Please see orthopedic notes for details. Patient observed overnight in the hospital and I evaluated her this morning on rounds for discharge planning. Hospital Course Hospital Course Hospital Course: Patient watched overnight, this morning felt well and wished to go home, did have a lot of sinus tachycardia, EKG was otherwise unremarkable and patient felt this is from her pain. Pain medication was sent, she will continue her current medication but I will see her in 5 days for follow-up and reassess her heart rate. Exam Data for Last 24 hours Vital signs and Labs for Last 24 Hours: Temp Pulse Resp BP Pulse Ox O2 Del Method O2 Flow Rate 98.7 F 100 H 17 151/76 H 96 Room Air 0 01/10/23 07:28 01/10/23 07:28 01/10/23 08:24 01/10/23 07:28 01/10/23 07:28 01/10/23 10:42 01/09/23 13:30 Laboratory Results - last 24 hr 01/10/23 06:50: WBC 8.2, RBC 4.00 L, Hgb 13.3, Hct 40.1, MCV 100.1 H, MCH 33.3 H, MCHC 33.3, RDW 13.2, Plt Count 111 L, MPV 8.1, Neut % (Auto) 81.8 H, Lymph % (Auto) 8.8 L, [place] % (Auto) 8.8, Eos % (Auto) 0.0 L, Baso % (Auto) 0.5, Neut # (Auto) 6.7, Lymph # (Auto) 0.7, [place] # (Auto) 0.7, Eos # (Auto) 0.0, Baso # (Auto) 0.0, Sodium 137, Potassium 4.1, Chloride 107, Carbon Dioxide 22, Anion Gap 12.1, BUN 11, Creatinine 0.60, Estimated Creat Clear 52, Estimated GFR 98, Est GFR ( Amer) 119, Glucose 124 H, Calcium 8.3 L I & O for Last 24 hours: Intake & Output 10/09/23 10/10/23 10/11/23 10/12/23 11:59 11:59 11:59 11:59 Intake Total 2755 / 2755 Output Total 2200 / 2200 Balance 555 / 555 Weight 143 lb 11.2 oz Constitutional Constitutional: no acute distress *Routine HEENT Exam Head: Present normocephalic Eye: Present EOMI and PERRL ENT: Present mucous membranes moist *Routine Neck Exam Neck: Present supple; Absent lymphadenopathy *Routine Respiratory Exam Respiratory: Present CTA bilaterally *Routine Cardiovascular Exam Cardiovascular: Present RRR and tachycardia *Routine Abdominal Exam Abdominal: Present soft and normoactive bowel sounds; Absent tenderness *Routine Extremities Exam Extremities: Absent cyanosis, clubbing or edema Comments: Right knee and postsurgical ice pack and wrapped. Left leg in sequential compression device stockings. No distal edema, can move toes well. Significant pain in knee as expected. Surgical dressing clean and dry. *Routine Skin Exam Skin: Present warm; Absent rash *Routine Neurological Exam Neurological: Present alert and oriented X3 Results Data Completed and Pending Labs on day of discharge: Labs from last 24 hours 01/10/23 06:50 WBC 8.2 RBC 4.00 L Hgb 13.3 Hct 40.1 MCV 100.1 H MCH 33.3 H MCHC 33.3 RDW 13.2 Plt Count 111 L MPV 8.1 Neut % (Auto) 81.8 H Lymph % (Auto) 8.8 L [place] % (Auto) 8.8 Eos % (Auto) 0.0 L Baso % (Auto) 0.5 Neut # (Auto) 6.7 Lymph # (Auto) 0.7 [place] # (Auto) 0.7 Eos # (Auto) 0.0 Baso # (Auto) 0.0 Sodium 137 Potassium 4.1 Chloride 107 Carbon Dioxide 22 Anion Gap 12.1 BUN 11 Creatinine 0.60 Estimated Creat Clear 52 Estimated GFR 98 Est GFR ( Amer) 119 Glucose 124 H Calcium 8.3 L Meds Home Medications and Allergies Home Medications Medication Instructions Recorded Confirmed Type carbamazepine 200 mg tablet 400 mg PO BID Seizures 10/22/19 01/09/23 History (Tegretol) phenytoin sodium extended 100 mg 100 mg PO TID Seizures 10/13/22 01/09/23 History capsule aspirin 325 mg tablet,delayed 325 mg PO .QD #20 tabs 01/09/23 01/09/23 Rx release oxycodone 5 mg tablet 5 mg PO Q4H PRN pain #30 tabs 01/09/23 01/09/23 Rx New Prescriptions to Start Prescriptions: aspirin 325 mg tablet,delayed release oxycodo
--- NOTE | 2023-01-10 14:36 | CARE MANAGER ---
Patient discharged home today with need for services. Patient Choice signed for [facility] and [facility], and placed on chart. Patient information faxed to [facility] due to [facility] not having availablity until next week. Per intake at [facility], services with begin tomorrow. Patient notified of this prior to discharge.
--- NOTE | 2023-01-11 13:54 | CARE MANAGER ---
Contacted patient related to hospital discharge. Patient states she is doing well. She has everything she needs. She is aware of follow up appointments. Denies questions or concerns. CONTRERAS Pereyra
== END 2023-01-10 13:20 | disposition home health service (06) ==
LOC: 2ND 13:39
PROVIDERS: Orthopaedic Surgery; Admitting Provider Internal Medicine Adolescent Medicine; PCP Internal Medicine Adolescent Medicine; Visit Provider Internal Medicine Adolescent Medicine
PROC: (CPT 27447; principal; 2023-01-09 10:15)
DX: M17.11 Unilateral primary osteoarthritis, right knee (principal); I65.23 Occlusion and stenosis of bilateral carotid arteries; G89.29 Other chronic pain; Z79.899 Other long term (current) drug therapy
CPT/HCPCS: 27447; 36415; 73560; 80048; 85025; 93005; 96374; 97163; 97165; C1713; C1776; G0378; J2405; J2704

== ENCOUNTER → 2023-01-31 08:04 | Outpatient (CLI) | payer MEDICARE, OTHER, SELFPAY ==
--- NOTE | 2023-01-31 08:08 | XR_ITS ---
FINAL REPORT CLINICAL HISTORY: rt knee pain COMPARISON: 01/09/2023 FINDINGS: Three views of the right knee reveal no evidence of fracture or dislocation. A knee arthroplasty has been performed, and the hardware appears stable since the prior films of January 09. A small to moderate joint effusion is present. There are several calcifications noted in the soft tissues, unchanged. IMPRESSION: Right knee arthroplasty, hardware appears stable. Small to moderate joint effusion. Reviewed, Interpreted and Dictated by Colin Lomas III, MD Transcribed by Selena Lujan Authenticated and [facility]
--- NOTE | 2023-01-31 08:09 | MM_ITS ---
PROCEDURE INFORMATION: Exam: MG Bilateral Screening 3D Mammography Exam date and time: 01/31/2023 8:26 AM Age: 72 years old Clinical indication: Screening examination TECHNIQUE: Imaging protocol: Bilateral Screening tomosynthesis and 2D mammography including computer-aided detection (CAD) when performed. COMPARISON: 1. MG MM DIG MAMM DX UNILAT RT CAD 07/21/2022 12:56 PM 2. MG MM DIG MAMM DX UNILAT RT CAD 01/20/2022 2:43 PM FINDINGS: MAMMOGRAPHY: Breast composition: The breasts are extremely dense, which lowers the sensitivity of mammography. Questionable 2.6 cm mass versus an island of dense fibroglandular structures in the middle third of the left 12 o'clock axis Mass: None. Architectural distortion: None. Calcifications: No suspicious calcifications. Asymmetric density: None. Skin thickening: None. Axillary adenopathy: None. IMPRESSION: Patient to be recalled for spot compression views of the left breast in the CC and MLO projections, a full 90 degree lateral view, and left breast ultrasound for further evaluation of a left breast mass. ASSESSMENT: BI-RADS Category 0: Incomplete- Need Additional Imaging Evaluation and/or Prior Mammograms for Comparison
== END ==
PROVIDERS: PCP Internal Medicine Adolescent Medicine; Visit Provider Internal Medicine Adolescent Medicine
DX: Z12.31 Encounter for screening mammogram for malignant neoplasm of breast; M25.561 Pain in right knee
CPT/HCPCS: 73562; 77063; 77067

== ENCOUNTER → 2023-02-27 14:06 | Outpatient (CLI) | payer MEDICARE, OTHER, SELFPAY ==
--- NOTE | 2023-02-27 14:10 | MM_ITS ---
PROCEDURE INFORMATION: Exam: US Left Breast, Complete MG Left Diagnostic Breast Tomosynthesis Exam date and time: 02/27/2023 2:58 PM Age: 72 years old Clinical indication: Patient recalled on the basis of a screening mammogram for further evaluation; Left breast; questionable mass TECHNIQUE: Imaging protocol: Complete ultrasound of all four quadrants of the left breast and the retroareolar regions, including ultrasound of the axilla when performed. Left Diagnostic tomosynthesis and 2D mammography including computer-aided detection (CAD) when performed. Unilateral or bilateral exam. COMPARISON: BL US BREAST-LT COMPLETE W/AXILLA 05/05/2016 1:24 PM FINDINGS: MAMMOGRAPHY: Digital diagnostic spot compression views of the left breast and 90 degree lateral view of the left breast demonstrate normal overlapping fibroglandular structures without persistent mass or asymmetry identified. ULTRASOUND: Sonographic images of the left breast including the retroareolar region, all 4 quadrants and the axilla do not demonstrate any solid masses. Minimal subcentimeter cystic changes question. No architectural distortion or acoustical shadowing. No skin thickening or axillary adenopathy. IMPRESSION: No mammographic or sonographic evidence of malignancy. Annual bilateral mammographic screening is recommended unless otherwise clinically indicated. ASSESSMENT: BI-RADS Category 2: Benign
== END ==
PROVIDERS: PCP Internal Medicine Adolescent Medicine; Visit Provider Internal Medicine Adolescent Medicine
DX: R92.8 Other abnormal and inconclusive findings on diagnostic imaging of breast (principal); N63.20 Unspecified lump in the left breast, unspecified quadrant
CPT/HCPCS: 76641; 77061; 77065; G0279

== ENCOUNTER → 2023-03-05 11:42 | Outpatient (CLI) | payer MEDICARE, OTHER, SELFPAY | PROVIDERS: PCP Internal Medicine Adolescent Medicine; Visit Provider Physician Assistant | DX: I10 Essential (primary) hypertension (principal); R00.2 Palpitations | CPT/HCPCS: 93270 ==

== ENCOUNTER 2023-04-04 08:25 | Outpatient (CLI) | payer MEDICARE, OTHER, SELFPAY ==
--- NOTE | 2023-04-04 08:30 | XR_ITS ---
FINAL REPORT CLINICAL HISTORY: right knee TKA COMPARISON: None FINDINGS: Three views of the right knee reveal no evidence of fracture or dislocation. Status post right knee arthroplasty. The bony alignment is normal. The joint spaces are preserved. There is a moderate joint effusion. No localized soft tissue abnormality is identified. IMPRESSION: Moderate joint effusion without acute abnormality identified. Reviewed, Interpreted and Dictated by Colin Lomas III, MD Transcribed by Jaqui Roe Authenticated and [facility]
== END 2023-04-04 23:59 ==
LOC: RAD 08:27
PROVIDERS: PCP Internal Medicine Adolescent Medicine; Visit Provider Orthopaedic Surgery
DX: Z96.651 Presence of right artificial knee joint (principal)
CPT/HCPCS: 73562

== ENCOUNTER 2023-04-20 08:07 | Day surgery (SDC) | payer MEDICARE, OTHER, SELFPAY ==
[2023-04-18 13:50] VITALS: BMI 24.3
[2023-04-20 08:22] VITALS: BP 158/76; PULSE 85; RESP 18; TEMP 36.9; O2SAT 99
[2023-04-20] MEDS: LACTATED RINGERS 1000ML 1,000 ML 25 ML IV (08:22)
--- NOTE | 2023-04-20 08:25 | P.PCN_ITS ---
Procedure: Date: 04/20/23 Patient Date of :: 1950 Procedure Performed:: Total colonoscopy with polypectomy Indications:: Patient is a 72-year-old female from [facility]. She presents for screening colonoscopy. She had undergone previous colonoscopy with Dr. Rocha in 03/01/2016 at which time she was found to have a large sigmoid polyp which was removed and reportedly tattooed with 2cc. Review of pathology reveals this to be at least a 13 mm tubular adenoma without high-grade dysplasia. Follow-up colonoscopy was recommended in 1 year. Performing Provider:: Colin Du MD Referring Provider:: Nikhil Leon MD Sedation:: MAC sedation Procedure:: Patient history was obtained and appropriate physical examination was performed. Patient's medications and allergies were reviewed. Informed consent was obtained after explaining the benefits, alternatives, and risks of the procedure including, but not limited to, bleeding, perforation, missed lesions, and adverse reaction to anesthesia medications. Patient was transported to endoscopy procedure room. Patient was connected to monitoring devices. Throughout the procedure the patient's blood pressure, pulse, and oxygen saturations were monitored continuously. Patient identification and planned procedure were verified by the staff. Patient was positioned in lateral decubitus position. Digital anorectal exam was performed. Variable stiffness Olympus colonoscope was inserted and advanced under direct visualization to the cecum. Adequacy of the colonic preparation was noted. The colonoscope was advanced a short distance into the terminal ileum. The colonoscope was then slowly withdrawn while carefully examining the color, texture, anatomy, and integrity of the mucosoa circumferentially. Within the rectum retroflexion was performed. Colonoscope was then withdrawn. . Patient had a rather significant redundancy and floppiness of sigmoid colon. Colonoscope was advanced into the ileocecal valve. Colonoscope was slowly withdrawn through the colon with very careful surveillance. Near the splenic flexure there was a small sessile adenomatous appearing polyp removed with cold snare. In the descending colon there were 3 small adenomatous appearing polyps 2 of which were removed with cold snare and 1 removed with biopsy forceps. In the sigmoid colon there was a polyp removed with biopsy forceps. Please note that careful surveillance of the sigmoid colon revealed no definite tattoo marking. In the rectosigmoid region there were several hyperplastic appearing polyps. A couple of these which appeared to be potentially more adenomatous were removed with biopsy forceps. Retroflexion revealed prolapsing internal hemorrhoid cushions. There were several hyperplastic appearing diminutive rectal polyps. 1 of these was somewhat larger and removed with biopsy forceps. . Findings:: Polyps as noted above. Likely 5 adenomatous polyps and several hyperplastic appearing. Pathology pending Prolapsing internal hemorrhoids Recommendations:: Follow-up colonoscopy pending pathology. Given prior history likely within 2 years Complications:: None immediately apparent Estimated blood obtained (mL): 3 Colonoscopy Component Colonoscopy Component Was a colonoscopy performed during today's procedure?: Yes Recommended follow up colonoscopy of at least 10 years?: No If no, follow up colonoscopy recommended in ___ years?: 2 Reason for not recommending >/= 10 yr follow-up interval?: Polyps
--- NOTE | 2023-04-20 08:31 | P.PNANES_ITS ---
[facility] Disclaimer: The information contained in this section may have been updated after the patient was seen, as this information can be updated by other users. Medical History Bilateral carotid artery stenosis Bronchitis Dizziness Heart murmur History of anemia History of cataract History of gastroesophageal reflux (GERD) HLD (hyperlipidemia) Hx of cataract Hx of rheumatic fever Hx of varicose veins Seizure disorder Sleep apnea Surgical History H/O rotator cuff surgery History of cholecystectomy History of colonoscopy History of hysterectomy History of nasal surgery Hx of cataract surgery Hx of tonsillectomy Total knee replacement status Family History Other Cancer Heart disease Hypertension Stroke Social History Smoking Status: Never smoker alcohol intake: never substance use type: denies use current occupational status: retired Travel in the last 8 weeks: None household members: none housing: house caffeine: No [facility] Anesthesia Checklist Patient Identification Patient Identification: Arm Band and Verbal (Name & ) Structural Data Admitted From: Home Planned Operative Procedure/s: Colonoscopy Consent for Planned Operative Procedure(s) Verified: Yes NPO Status Verified Time NPO: 00:00 Additional verifications Anesthesia Reactions: No Hx Blood Transfusions: No Blood Transfusion Reaction: No Airway Assessment Mallampati Score:: Class II C-Spine Mobility Assessed: Yes TMJ Mobility Assessed: Yes Dentition: Edentulous Neurological Assessment Level of Consciousness: Awake Hx Seizures: Yes Numbness or tingling in extremities: No Anesthesia Plan Anesthesia Risk discussed: Yes Anesthesia Plan: Verified ASA Class: III Anesthesia Type: MAC
[2023-04-20 09:28] VITALS: BP 84/32; PULSE 98; RESP 16; TEMP 36.3; O2SAT 94
[2023-04-20 09:38] VITALS: BP 100/47; PULSE 95; RESP 16; O2SAT 95
[2023-04-20 09:40] VITALS: BP 109/74; PULSE 111; RESP 18; O2SAT 95
[2023-04-20 10:00] VITALS: BP 133/69; PULSE 101; RESP 18; O2SAT 95
== END 2023-04-20 10:00 | disposition home or self-care (01) ==
PROVIDERS: PCP Internal Medicine Adolescent Medicine; Visit Provider Surgery
PROC: 0DJD8ZZ Inspection of Lower Intestinal Tract, Via Natural or Artificial Opening Endoscopic (ICD-10-PCS; CPT 45380; principal; 2023-04-20 09:30)
DX: Z12.11 Encounter for screening for malignant neoplasm of colon (principal); Z86.010 Personal history of colon polyps; K64.8 Other hemorrhoids; D12.3 Benign neoplasm of transverse colon; D12.4 Benign neoplasm of descending colon; D12.5 Benign neoplasm of sigmoid colon
CPT/HCPCS: 45380; 45385; 88305; J2704

== ENCOUNTER 2023-08-31 10:09 | Outpatient (CLI) | payer MEDICARE, OTHER, SELFPAY ==
--- NOTE | 2023-08-31 10:10 | CA_ITS ---
APPROVED REPORT EXAM: Comprehensive 2D, Doppler, and color-flow Echocardiogram Lmft: Heidi Garcia CRT Ht: 5 ft 5 in Wt: 159lbs BSA: 1.79 BP: 126/74 mmHg Indications: Rheumatic Fever, Shortness of Breath, Palpitations, Peripheral Edema, Hyperlipidemia, Hypertension/HDD, SVT, Cardiomegaly 2D Dimensions LA Volume 30.40 mL LA Volume Index 16.50 mL/m2 (M/F) 16-34 M-Mode Dimensions RVDd 3.01 cm (0.9-2.6) LA Diam 3.95 cm (1.9-4.0) LVDd 4.01 cm (3.5-5.7) LVDs 2.75 cm (3.5-5.7) IVSd 1.25 cm (0.6-1.1) PWd 1.04 cm (0.6-1.1) EF (Teich) 59.80% FS 31.40% EDV (Teich) 70.40 mL TAPSE 2.26 (<1.7) ESV (Teich) 28.30 mL LV Diastology E Decel Time 253 (160-240 msec) E/A Ratio 0.77 MED A' 15.40 cm/s LAT A' 11.90 cm/s Aortic Valve AO Peak GR. 6.80 mmHg Mitral Valve MV A Velocity 74.0 (40-130 cm/s) E/A Ratio 0.77 Pulmonary Valve PV Peak Velocity 110.0 (50-150 cm/s) Tricuspid Valve TR P. Velocity 318.00 cm/s RAP Estimate 10.00 mmHg RVSP 50.50 mmHg Left Ventricle The left ventricle is normal size. The left ventricular systolic function is normal. The left ventricular ejection fraction is within the normal range. There is increased LV wall thickness. There is normal LV segmental wall motion. Transmitral Doppler flow pattern suggests impaired LV relaxation. LVEF is 55%. Right Ventricle Right ventricle is mildly dilated. The right ventricular systolic function is normal. Atria The left atrium size is normal. The right atrium size is normal. There is no Doppler evidence of interatrial shunt. Aortic Valve The aortic valve is mildly thickened. There is no aortic valvular stenosis. Trace aortic regurgitation. Mitral Valve Mild mitral annular calcification. The mitral valve leaflets are mildly thickened. No evidence of mitral valve stenosis. There is no mitral valve regurgitation noted. Tricuspid Valve The tricuspid valve leaflets are thin and pliable. Mild tricuspid regurgitation. RVSP is 20-25 mmHg. Pulmonic Valve The pulmonary valve is normal in structure. Trace pulmonic regurgitation. Great Vessels The aortic root is normal in size. The ascending aorta is normal in size. IVC is normal in size and collapses >50% with inspiration. Pericardium There is no pericardial effusion. Other Information Study Quality: Fair Conclusion Normal biventricular systolic function. Mild RV dilation. Mild TR. Electronically signed by : Cheryle Delgado MD 09/04/2023 02:00:04
[2023-08-31 10:31] LABS: Basophils # 0.1 K/mm3 (0-0.2); Basophils % 1.2 % (0.1-2.0); Eosinophils % 0.1 % (0.1-12.0); Hematocrit 47.3 % (37.0-47.0); Hemoglobin 15.1 g/dL (12.2-16.2); Lymphocytes # 1.6 K/mm3 (0.7-4.5); Lymphocytes % 28.6 % (10-50); Mean Corpuscular HGB Conc 31.9 g/dL (31.8-35.4); Mean Corpuscular Volume 96.9 fl (81-99); Mean Platelet Volume 7.8 fl (7.4-10.4); Monocytes # 0.3 K/mm3 (0.1-1.0); Monocytes % 5.2 % (1.7-9.3); Neutrophils # 3.7 K/mm3 (1.8-7.8); Neutrophils % 64.9 % (37.0-80.0); Platelet Count 189 K/mm3 (142-424); Red Blood Count 4.88 M/mm3 (4.20-5.40); Red Cell Distribution Width 13.7 % (11.5-17.5); White Blood Count 5.7 K/mm3 (4.8-10.8)
[2023-08-31 11:14] LABS: Alanine Aminotransferase 26 U/L (12-78); Albumin Level 4.5 g/dl (3.5-5.0); Alkaline Phosphatase 144 U/L (38-126); Anion Gap 15.7 mEq/L (5-15); Aspartate Amino Transferase 35 U/L (14-36); Bilirubin,Direct 0.2 mg/dl (0.0-0.4); Bilirubin,Indirect 0.3 mg/dL (0.0-0.9); Bilirubin,Total 0.5 mg/dl (0.2-1.3); Bilirubin,Unconjugated 0.3 mg/dL (0.0-1.1); Blood Urea Nitrogen 26 mg/dl (7-17); Calcium 9.3 mg/dl (8.4-10.2); Carbon Dioxide 22 mmol/L (22.0-30.0); Chloride 106 mmol/L (98-107); Cholesterol 192 mg/dl (140-200); Estimated Glomerular Filt Rate 82 ml/min (>60); GFR (African American) 100 ML/MIN (>60); Glucose 97 mg/dl (74-100); Magnesium 1.7 mg/dl (1.6-2.3); Potassium 4.7 mmoL/L (3.5-5.1); Sodium 139 mmol/L (136-145); Total Protein,Serum 6.8 g/dl (6.3-8.2); Triglycerides 53 mg/dl (30-150); VLDL Cholesterol 11 mg/dL (0-40)
[2023-08-31 11:21] LABS: HDL Cholesterol 103 mg/dl (40-60)
[2023-08-31 11:33] LABS: Free T4 (Free Thyroxine) 0.79 ng/dl (0.78-2.19)
[2023-08-31 11:34] LABS: Chol/HDL Ratio 1.9 (1-3.5)
[2023-08-31 11:47] LABS: Thyroid Stimulating Hormone 1.71 uIU/mL (0.465-4.68)
[2023-08-31 12:01] LABS: Iron 147 ug/dL (37-170)
[2023-08-31 12:06] LABS: Vitamin B12 281 pg/mL (239-931)
[2023-08-31 12:10] LABS: Total Iron Binding Capacity 282 ug/dL (265-497)
== END 2023-08-31 23:59 | disposition home or self-care (01) ==
LOC: RT 10:10
PROVIDERS: PCP Internal Medicine Adolescent Medicine; Visit Provider Physician Assistant
DX: R06.02 Shortness of breath (principal); G40.909 Epilepsy, unspecified, not intractable, without status epilepticus; R00.2 Palpitations; I10 Essential (primary) hypertension; E78.5 Hyperlipidemia, unspecified; D64.9 Anemia, unspecified
CPT/HCPCS: 36415; 80048; 80061; 80076; 82607; 83540; 83550; 83735; 84439; 84443; 85025; 93306

== ENCOUNTER 2024-01-11 14:13 | Outpatient (CLI) | payer MEDICARE, OTHER, SELFPAY ==
--- NOTE | 2024-01-11 14:27 | XR_ITS ---
FINAL REPORT CLINICAL HISTORY: Right hand pain FINDINGS: RIGHT HAND Three views demonstrate no acute fracture or dislocation. Mild degenerative changes are seen. The soft tissues are unremarkable. IMPRESSION: Degenerative change with no acute bony abnormality. Reviewed, Interpreted and Dictated by Colin Lomas III, MD Transcribed by Cami Li Authenticated and [facility]
== END 2024-01-11 23:59 | disposition home or self-care (01) ==
LOC: RAD 14:17
PROVIDERS: PCP Internal Medicine Adolescent Medicine; Visit Provider Internal Medicine Adolescent Medicine
DX: M79.641 Pain in right hand (principal)
CPT/HCPCS: 73130

== ENCOUNTER 2024-03-13 08:02 | Outpatient (CLI) | payer MEDICARE, OTHER, SELFPAY ==
--- NOTE | 2024-03-13 08:08 | MM_ITS ---
PROCEDURE INFORMATION: Exam: MG Bilateral Screening 3D Mammography Exam date and time: 03/13/2024 8:03 AM Age: 73 years old Clinical indication: Screening examination. Her paternal grandmother had breast cancer. TECHNIQUE: Imaging protocol: Bilateral Screening tomosynthesis and 2D mammography including computer-aided detection (CAD) when performed. COMPARISON: 1. MG MM DIG MAMM DX UNILAT LT CAD 02/27/2023 2:29 PM 2. MG MM DIG SCREENING MAMM BI W/CAD 01/31/2023 8:26 AM 3. MG MM DIG MAMM DX UNILAT RT CAD 07/21/2022 12:56 PM 4. MG MM DIG MAMM DX UNILAT RT CAD 01/20/2022 2:43 PM FINDINGS: MAMMOGRAPHY: Breast composition: The breasts are extremely dense, which lowers the sensitivity of mammography. Mass: None. Architectural distortion: None. Calcifications: No suspicious calcifications. Asymmetric density: None. Skin thickening: None. Axillary adenopathy: None. IMPRESSION: No mammographic evidence of malignancy. Annual screening is recommended unless otherwise clinically indicated. ASSESSMENT: BI-RADS Category 1: Negative.
== END 2024-03-13 23:59 | disposition home or self-care (01) ==
LOC: RAD 08:05
PROVIDERS: PCP Internal Medicine Adolescent Medicine; Visit Provider Internal Medicine Adolescent Medicine
DX: Z12.31 Encounter for screening mammogram for malignant neoplasm of breast (principal)
CPT/HCPCS: 77063; 77067

== ENCOUNTER 2024-06-24 06:58 | Outpatient (CLI) | payer MEDICARE, OTHER, SELFPAY ==
--- NOTE | 2024-06-24 | CA_ITS ---
APPROVED REPORT Exam: Pharmacologic Technologist: Radha Vasquez Ht: 5 ft 5 in Wt: 169 lbs BSA: 1.84 m2 HR: 80 bpm BP: 156/78 mmHg Stress Test Details Test: Lexiscan Reversal agent Aminophyline 100.0 mg, given intravenously for dizziness. HR Resting HR: 80 bpm Max Heart Rate (APMHR): 147.122053 bpm Max HR Achieved: 80 bpm Target HR (85% APMHR): 124.141904 bpm % of APMHR: 54.42 Recovery HR: 70 bpm BP Resting BP: 156.0/78.0 mmHg Max BP: 156.0/78.0 mmHg Recovery BP: 102.0/55.0 mmHg ECG Resting ECG: Sinus rhythm, right bundle branch block Stress ECG Conclusion Symptoms: Hypotenstion, chest pain Arrhythmias/Ectopy: - ST-T Changes: Less than [address] depression Conclusion: Abnormal blood pressure response to Lexiscan. EKG unremarkable due to Lexiscan infusion. Electronically signed by : Cheryle Delgado MD 06/26/2024 12:03:02
--- NOTE | 2024-06-24 06:59 | NM_ITS ---
APPROVED REPORT Exam: Nuclear Stress Test Indication: Chest pain, SOB, Fatigue, HTN, Family history Patient Location: Outpatient Stress Tech: Radha Vasquez WAQAS Tech:Sakina Milian, ARRT, RT (R)(N) Ht: 5 ft 5 in Wt: 170 lbs Bra Size: C HR: 79 bpm BP: 156/78 mmHg BSA: 1.85 m2 TID: 1.22 BMI: 28.2 Procedure: Patient received 0.4 mg of intravenous Lexiscan, resting heart rate 79 bpm, resting blood pressure 156/78 mmHg, with Lexiscan maximum heart rate achieved was 88 bpm which is % of the maximum predicted heart rate and blood pressure was 117/58 mmHg. Cardiac Stress and Resting SPECT Images: Cardiac Stress and Resting SPECT images were obtained using technetium 99m Myoview 32.1 mCi stress and 10.75 mCi at rest. Resting and stress imaging in supine and prone imaging demonstrate no evidence of fixed or reversible perfusion defects. There is increase in transient ischemic dilatation ratio (TID 1.22), suggestive of possible multivessel disease or balanced ischemia. Gated imaging demonstrates normal global and regional LV systolic function. LVEF is calculated at 58%. Conclusion: No evidence of fixed or reversible perfusion defects. There is increase in transient ischemic dilatation ratio (TID 1.22), suggestive of possible multivessel disease or balanced ischemia. Gated imaging demonstrates normal global and regional LV systolic function. LVEF is calculated at 58%. Electronically signed by : Cheryle Delgado MD 06/26/2024 12:09:51
[2024-06-24] MEDS: SODIUM CHLORIDE 0.9% 10ML SYR (RAD ONLY) 10 ML IV ×2 (08:39→08:40)
[2024-06-24] MEDS: ISOTOPE MYOVIEW (PER STUDY) 1 DOSE IV (08:40)
[2024-06-24] MEDS: REGADENOSON 0.4MG/5ML SYRINGE 0.4 MG IV (08:40)
== END 2024-06-24 23:59 | disposition home or self-care (01) ==
LOC: RAD 06:59
PROVIDERS: PCP Internal Medicine Adolescent Medicine; Visit Provider Nurse Practitioner Family
DX: R00.2 Palpitations (principal); R06.00 Dyspnea, unspecified; I10 Essential (primary) hypertension
CPT/HCPCS: 78452; 93017; 93018; A9502; J0280; J2785

== ENCOUNTER 2024-09-22 08:39 | Day surgery (SDC) | payer MEDICARE, OTHER, SELFPAY ==
[2024-09-22] VITALS (11 sets, daily range): BP systolic 139–197; BP diastolic 83–101; PULSE 91–108; RESP 20; O2SAT 91–98; BMI 27.9
--- NOTE | 2024-09-22 07:56 | IR_ITS ---
APPROVED REPORT Patient Location: Outpatient Asphalt Patcher: Chris Sebastian, RT (R) PROCEDURES Left heart catheterization Left ventriculogram Selective coronary angiogram Right femoral venous sheath placement INDICATION Abnormal stress test, Worsening angina pectoris, Inability to obtain peripheral IV access Informed consent was obtained prior to the procedure. COMPLICATIONS None Estimated Blood Loss: Less than 10 mls TECHNIQUE One percent lidocaine used to anesthetize the right anterior aspect of the wrist. The right radial artery was accessed via the Seldinger technique. A 6 Chadian sheath was placed in the right radial artery. 2.5 mg of Verapamil, 800 mcg of nitroglycerin, 1mg Lidocaine and 5000 U Heparin were given through the arterial sheath. Patient's IV infiltrated therefore 1% lidocaine was used anesthetize the right groin the right femoral vein was accessed via the central technique and a 4 Chadian sheath was placed in the right femoral vein. The JL3 catheter was also used to perform left heart catheterization, left ventriculogram and selective coronary angiogram. At the end of the procedure the sheath was removed good hemostasis was achieved using Traclet band, patient was transferred to the postop holding area in stable condition. ANGIOGRAPHIC RESULTS The left main artery Normal The left anterior descending artery Has proximal mid vessel calcified 10% stenosis The circumflex artery Nondominant calcified with diffuse 10 to 20% stenoses The right coronary artery Dominant with mid vessel 20% calcified stenosis The GIBSON ventriculogram reveals Hyperdynamic at 75% The left ventricular end-diastolic pressure 20 mmHg IMPRESSION Nonflow limiting coronary disease Hyperdynamic ventricle Elevated LVEDP PLAN 1. Medical management for coronary disease 2. Treatment of diastolic dysfunction 3. Risk factor modification Electronically signed by : Derick Phelan MD 09/22/2024 11:07:53
[2024-09-22 09:30] LABS: Basophils # 0.1 K/mm3 (0-0.2); Basophils % 0.6 % (0.1-2.0); Hematocrit 45.8 % (37.0-47.0); Hemoglobin 15.3 g/dL (12.2-16.2); Immature Granulocytes # 0.03 10^3uL; Immature Granulocytes % 0.4 %; Lymphocytes # 0.8 K/mm3 (0.7-4.5); Mean Corpuscular HGB Conc 33.4 g/dL (31.8-35.4); Mean Corpuscular Hemoglobin 30.5 pg (27.0-31.2); Mean Corpuscular Volume 91.4 fl (81-99); Monocytes # 0.1 K/mm3 (0.1-1.0); Monocytes % 1.7 % (1.7-9.3); Neutrophils # 6.8 K/mm3 (1.8-7.8); Neutrophils % 87.3 % (37.0-80.0); Nucleated Red Blood Cells # 0 10^3/uL; Nucleated Red Blood Cells % 0 %; Platelet Count 233 K/mm3 (142-424); Red Blood Count 5.01 M/mm3 (4.20-5.40); Red Cell Distribution Width 12.8 % (11.5-17.5); Red Cell Distribution Width-SD 43.4 fL; White Blood Count 7.8 K/mm3 (4.8-10.8)
[2024-09-22 10:34] LABS: Chloride 106 mmol/L (98-107); Potassium 4.6 mmoL/L (3.5-5.1); Sodium 140 mmol/L (136-145)
[2024-09-22 10:37] LABS: Anion Gap 14.6 mEq/L (5-15); Blood Urea Nitrogen 19 mg/dl (7-17); Carbon Dioxide 24 mmol/L (22.0-30.0); Creatinine Clearance Estimated 60 mL/min (50-200); Estimated Glomerular Filt Rate 82 ml/min (>60); GFR (African American) 99 ML/MIN (>60)
[2024-09-22 10:38] LABS: Calcium 9.1 mg/dl (8.4-10.2); Glucose 135 mg/dl (74-100)
[2024-09-22] MEDS: NITROGLYCERIN 800MCG/8ML SYR (CATH LAB) 800 MCG IA (10:41)
[2024-09-22] MEDS: METHYLPREDNISOLONE SOD SUCC 125MG VIAL 125 MG IV (10:41)
[2024-09-22] MEDS: diphenhydrAMINE 50MG/ML VIAL 50 MG IV (10:41)
[2024-09-22] MEDS: 0.9 % SODIUM CHLORIDE 500 ML 25 ML IV (10:42)
[2024-09-22] MEDS: HEPARIN 1,000 UNITS/ML 10ML VIAL (CATH LAB) 5000 UNIT IV (10:42)
[2024-09-22] MEDS: LIDOCAINE 1% 10ML MDV 10 ML IJ (10:42)
[2024-09-22] MEDS: FAMOTIDINE 20MG/2ML VIAL 20 MG IV (10:42)
[2024-09-22] MEDS: HEPARIN 1,000 UNITS/500ML NS (CATH LAB) 3000 UNIT IV (10:42)
[2024-09-22] MEDS: FENTANYL 100MCG/2ML VIAL 50 MCG IV (10:43)
[2024-09-22] MEDS: MIDAZOLAM HCL 1MG/ML 5ML VIAL 1 MG IV (10:43)
--- NOTE | 2024-09-22 11:21 | SUR.PHASEII ---
inserted venous sheath to right groin during cath d/t IV going bad during procedure. Venous sheath remains in at this time for alterative IV access. Will remove closer to d/c
[2024-09-22] MEDS: IOPAMIDOL-370 (76%);100ML BOTTLE 60 ML IV (14:33)
== END 2024-09-22 13:58 | disposition home or self-care (01) ==
LOC: CATHLAB 08:41
PROVIDERS: PCP Internal Medicine Adolescent Medicine; Visit Provider Internal Medicine
PROC: 4A023N7 Measurement of Cardiac Sampling and Pressure, Left Heart, Percutaneous Approach (ICD-10-PCS; CPT 93452; principal; 2024-09-22 09:45)
DX: I25.118 Atherosclerotic heart disease of native coronary artery with other forms of angina pectoris (principal); I11.9 Hypertensive heart disease without heart failure; R93.1 Abnormal findings on diagnostic imaging of heart and coronary circulation; I47.10 Supraventricular tachycardia, unspecified; E78.5 Hyperlipidemia, unspecified; I65.23 Occlusion and stenosis of bilateral carotid arteries; G40.909 Epilepsy, unspecified, not intractable, without status epilepticus; Z79.82 Long term (current) use of aspirin; Z79.899 Other long term (current) drug therapy; Z88.8 Allergy status to other drugs, medicaments and biological substances; Z91.041 Radiographic dye allergy status; Z82.49 Family history of ischemic heart disease and other diseases of the circulatory system; Z82.3 Family history of stroke
CPT/HCPCS: 93458; 36415; 80048; 85025; 99152; C1725; C1769; J1200; J1644; J2919; J3010; J7040; Q9967

== ENCOUNTER 2024-10-09 07:56 | Outpatient (CLI) | payer MEDICARE, OTHER, SELFPAY ==
--- OUTSIDE RECORDS SUMMARY | 2024-07-05 17:30 | XMS_ITS ---
Author Organization [facility] Address [address] [place] [address] Care Team Providers Care Auction Clerk Name Role Phone Nikhil Leon Primary Care Provider Nikhil Leon Unavailable Unavailable Migration, Provider Unavailable Unavailable Allergies Allergen (clinical drug ingredient) Drug/Non Drug Allergy documented on EMR Reaction Allergy Type Onset Date Status LIQUID TYLENOL (uncoded) Unknown Allergy Active SULFA (uncoded) Unknown Allergy Acti ve VISTARIL (uncoded) Unknown Allergy A ctive Iodine Unknown Drug Allergy Active sumatriptan Imitrex Unknown Drug Allergy Activ e amoxicillin / clavulanate Augmentin itching Drug Allergy Active fluoxetine PROzac Unknown Drug Allergy Active phenobarbital PHENobarbital Unknown Drug Allergy Active REASON FOR VISIT [facility] To [facility] Conversion Encounter Medications Medication SIG (Take, Route, Frequency, Duration) Notes Start Date End Date Status Cyclobenzaprine HCl 10 MG 1 tab(s) orally 3 times a day; Duration: 5 days 05/05/2024 Active TEGretol 200 MG 2 tabs orally twice daily; Duration: 90 days Active Promethazine HCl 25 MG 1 tab(s) orally e very 6 hours; Duration: 5 days 05/13/2024 Active Procto-Med HC 2.5 % 1 sage applied topically 3 times a day; Duration: 14 days 06/09/2024 Active Estradiol 0.1 MG/GM as directed intravaginally M/W?F; Duration: 30 days 06/09/2024 Active Losartan Potassium 25 MG 1 tab(s) orally once a day; Duration: 90 days Active Propranolol HCl 20 MG 1 tab(s) orally 2 times a day; Duration: 90 days In morning and early afternoon 02/25/2024 Active Dilantin 100 MG 1 cap in the morning and 2 caps at night orally as directed; Duration: 90 days Active Encounters Encounter Location Date Provider Diagnosis [facility] [address] [facility] [address] [facility] [address] [place] [id number] 07/05/2024 Provider Migration Hemorrhoids, unspecified hemorrhoid type K64.9 and Urethritis N34.2 Assessments Encounter Date Diagnosis (ICD Code) Assessment Notes Treatment Notes Treatment Clinical Notes Section Notes 07/05/2024 Hemorrhoids, unspecified hemorrhoid type (ICD-10 - K64.9) 07/05/2024 Urethritis (ICD-10 - N34.2) Plan Of Treatment Medication Medication Name Sig Start Date Stop Date Notes Procto-Med HC 2.5 % 1 sage applied topica lly 3 times a day; Duration: 14 days 06/09/2024 Estradiol 0.1 MG/GM as directed intravag inally M/W?F; Duration: 30 days 06/09/2024 Next Appt Details Provider Name:Nikhil Leon, 10/09/2024 10:00:00 AM, [address] [place] [address], [id number], Provider Name:Nikhil Leon, 12/29/2024 09:00:00 AM, [address], [address], [place], [address], Progress Notes * Hazel ABDI SDOB:1950 (73 yo F)Acc No.[id number]:07/05/2024 Patient: Yinka TERRY Hazel Kane Provider: Cinthia Keenan :1950 A ge:73 Y S ex:Female Date:07/05/2024 Address[address] [id number] Pcp:Nikhil Leon Subjective: * Chief Complaints: * 1 . Multum To Medispan Conversion Encounter. * Medical History: * Medications: T aking Propranolol HCl 20 MG Tablet 1 tab(s) orally 2 times a day , Notes to Pharmacist: In morning and early afternoon, Taking Dilantin 100 MG Capsule 1 cap in the morning and 2 caps at night orally as directed , Taking Losartan Potassium 25 MG Tablet 1 tab(s) orally once a day , Taking Cyclobenzaprine HCl 10 MG Tablet 1 tab(s) orally 3 times a day , Taking Promethazine HCl 25 MG Tablet 1 tab(s) orally every 6 hours , Taking TEGretol 200 MG Tablet 2 tabs orally twice daily * Allergies: V ISTARIL, SULFA, Imitrex, PROzac, Iodine, LIQUID TYLENOL, Augmentin: itching, PHENobarbital. Objective: * Vitals: Assessment: * Assessment: 1. H emorrhoids, unspecified hemorrhoid type - K64.9 2 . U rethritis - N34.2 Plan: * Treatment: 2. U rethritis Start Estradiol Cream, 0.1 MG/GM, as directed, intravaginally, M/W?F, 30 days, 1, Refills 1. ? * * Electronic signature of Prov ider Migration on 10/09/2024 at 08:07 AM EDT Sign off status: Pending * Provider: Cinthia hooks Migration Date: 0 07/05/2024 Generated for Anali byers/Neno/Randy on: 0 10/09/2024 08:07 AM EDT
--- OUTSIDE RECORDS SUMMARY | 2024-08-27 05:00 | XMS_ITS ---
Author Organization [facility] Address [address] [place] [address] Care Team Providers Care Fha Underwriter Name Role Phone Nikhil Leno Primary Care Provider Nikhil Leon Unavailable Unavailable Allergies Allergen (clinical drug ingredient) [...] Active phenobarbital PHENobarbital Unknown Drug Allergy Active Results Component Value Reference Range Notes COMPREHENSIVE METABOLIC PANE L ([id number]) Reviewed date:09/02/2024 02:14:44 PM Interpretation: Performing Lab:CB, [facility] [id number] [facility], [facility] [id number] Louie Sadler Notes/Report: NON-FASTING; NON-FASTING; NON-FASTING; NON-FASTING GLUCOSE 102 65-99 mg/dL Fasting reference interval For someone without known diabetes, a glucose value between 100 and 125 mg/dL is consistent with prediabetes and should be confirmed with a follow-up test. UREA NITROGEN (BUN) 26 7-25 mg/dL CREATININE 0.90 0.60-1.00 mg/dL EGFR 68 > OR = 60 mL/min/1.73m2 BUN/CREATININE RATIO 29 6-22 (calc) SODIUM 138 135-146 mmol/L POTASSIUM 4.8 3.5-5.3 mmol/L CHLORIDE 105 98-110 mmol/L CARBON DIOXIDE 23 20-32 mmol/L CALCIUM 9.2 8.6-10.4 mg/dL PROTEIN, TOTAL 6.8 6.1-8.1 g/dL ALBUMIN 4.6 3.6-5.1 g/dL GLOBULIN 2.2 1.9-3.7 g/dL (calc) ALBUMIN/GLOBULIN RATIO 2.1 1.0-2.5 (calc) BILIRUBIN, TOTAL 0.3 0.2-1.2 mg/dL ALKALINE PHOSPHATASE 138 37-153 U/L AST 15 10-35 U/L ALT 14 6-29 U/L CBC (INCLUDES DIFF/PLT) (639 9) Reviewed date:09/02/2024 02:14:44 PM Interpretation: Performing Lab:[facility], [facility], [facility] [id number] Louie Sadler Notes/Report: NON-FASTING; NON-FASTING; NON-FASTING; NON-FASTING WHITE BLOOD CELL COUNT 5.6 3.8-10.8 Thousand/ uL RED BLOOD CELL COUNT 4.81 3.80-5.10 Million/uL HEMOGLOBIN 14.3 11.7-15.5 g/dL HEMATOCRIT 44.9 35.0-45.0 % MCV 93.3 80.0-100.0 fL MCH 29.7 27.0-33.0 pg MCHC 31.8 32.0-36.0 g/dL For adults, a slight decrease in the calculated MCHC value (in the range of 30 to 32 g/dL) is most likely not clinically significant; however, it should be interpreted with caution in correlation with other red cell parameters and the patient's clinical condition. RDW 12.6 11.0-15.0 % PLATELET COUNT 218 140-400 Thousand/uL MPV 10.4 7.5-12.5 fL ABSOLUTE NEUTROPHILS 3545 2402-4488 cells/uL ABSOLUTE LYMPHOCYTES 7389 929-2289 cells/uL ABSOLUTE MONOCYTES 431 200-950 cells/uL ABSOLUTE EOSINOPHILS 0 15-500 cells/uL ABSOLUTE BASOPHILS 62 0-200 cells/uL NEUTROPHILS 63.3 LYMPHOCYTES 27.9 MONOCYTES 7.7 EOSINOPHILS 0.0 BASOPHILS 1.1 CARBAMAZEPINE, TOTAL (329) Reviewed date:09/02/2024 02:14:44 PM Interpretation: Performing Lab:CB, [facility] [id number], [facility] CenterUsmzCL[address] Louie Sadler Notes/Report: NON-FASTING; NON-FASTING; NON-FASTING; NON-FASTING CARBAMAZEPINE, TOTAL 6.6 4.0-12.0 mg/L PHENYTOIN (713) Reviewed date:09/02/2024 02:14:44 PM Interpretation: Performing Lab:OTIS, [facility] [id number], [facility] [id number] Louie Sadler Notes/Report: NON-FASTING; NON-FASTING; NON-FASTING; NON-FASTING PHENYTOIN 17.2 10.0-20.0 mg/L REASON FOR VISIT 3 month ck-non fasting, had a mole that fell off and is now itching Medications Medication SIG (Take, Route, Frequency, Duration) Notes Start Date End Date Status Cyclobenzaprine HCl 10 MG 1 tab(s) orally 3 times a day; Duration: 5 days 05/05/2024 Active Dilantin 100 MG 1 cap in the morning and 2 caps at night orally as directed; Duration: 90 days Active Estradiol 0.1 MG/GM as directed intravaginally M/W?F; Duration: 30 days 06/09/2024 Active Procto-Med HC 2.5 % 1 sage applied topically 3 times a day; Duration: 14 days 06/09/2024 Active TEGretol 200 MG 2 tabs orally twice daily; Duration: 90 days Active Losartan Potassium 25 MG 1 tab(s) orally once a day; Duration: 90 days Active Propranolol HCl 20 MG 1 tab(s) orally 2 times a day; Duration: 90 days In morning and early afternoon 02/25/2024 Active Promethazine HCl 25 MG 1 tab(s) orally e very 6 hours; Duration: 5 days 05/13/2024 Active Vital Signs Temperature 97.8 degrees Fahrenheit 08/28/19 25 Heart Rate 78 /min 08/27/2024 Blood pressure systolic 138 mm Hg 08/28/19 25 Blood pressure diastolic 82 mm Hg 025 Height 65 in 08/27/2024 Weight 169.4 lbs 08/27/2024 BMI 28.19 kg/m2 08/27/2024 Encounters Encounter Location Date Provider Diagnosis [facility] [address] [place] [address] 08/27/2024 Nikhil Leon Seizures R56.9 ; Hypertension, essential I10 ; Xerosis of skin L85.3 and Rectal bleed K62.5 Assessments Encounter Date Diagnosis (ICD Code) Assessment Notes Treatment Notes Treatment Clinical Notes Section Notes 08/27/2024 Seizures (ICD-10 - R56.9) Overall doing well in regards to seizure control. No problems with medication toleration or efficacy. Will check levels today. Check CMP and CBC because of possible toxic medication issues 08/27/2024 Hypertension, essential (ICD-10 - I10) Excellent control, will refill medication and check renal function 08/27/2024 Xerosis of skin (ICD-10 - L85.3) Has been using OTC lotions. Recommended CeraVe or Eucerin lotion. 08/27/2024 Rectal bleed (ICD-10 - K62.5) Continue hemorrhoid treatment. Recommended daily Metamucil to keep stools soft and minimize time pushing on the commode. Check CBC today Reviewed more normal colonoscopy 1 year ago Plan Of Treatment Medication Medication Name Sig Start Date Stop Date Notes Losartan Potassium 25 MG 1 tab(s) orally once a day; Duration: 90 days Propranolol HCl 20 MG 1 tab(s) orally 2 times a day; Duration: 90 days 02/25/2024 In morning and early afternoon Treatment Notes Assessment Notes Seizures Overall doing well in regards to seizure control. No problems with medication toleration or efficacy. Will check levels today. Check CMP and CBC because of possible toxic medication issues Hypertension, essential Excellent contro l, will refill medication and check renal function Xerosis of skin Has been using OTC l otions. Recommended CeraVe or Eucerin lotion. Rectal bleed Continue hemorrhoid treatment. Recommended daily Metamucil to keep stools soft and minimize time pushing on the commode. Check CBC today Reviewed more normal colonoscopy 1 year ago Next Appt Details Follow Up: prn,3 Months, Liea son: Provider Name:Nikhil Leon, 10/09/2024 10:00:00 AM, [address] [facility] [address], [place], [address], Provider Name:Nikhil Leon, 12/29/2024 09:00:00 AM, [address], [address], [place], [address], Progress Notes * Hazel ABDI SDOB:1950 (73 yo F)Acc No.[id number]:08/27/2024 Progress Notes Patient: Hazel GRANADOS Provider: Kane Leon MD :1950 A ge:73 Y S ex:Female Date:08/27/2024 Address:[facility] [address], [place]-[address] Subjective: * Chief Complaints: * 1 . 3 month ck-non fasting. 2. Had a mole that fell off and is now itching. * HPI: g en: Hazel presents to follow-up for multiple medical problems. Overall feels well. Rectal bleeding resolved with treatment of her hemorrhoid, had a couple of episodes last week, thinks that the hemorrhoid might be back. She has not been taking Metamucil on a regular basis. Has had no seizures for many years, would like her Dilantin and Tegretol levels checked. Had a small lesion that fell off of her back and now has an itchy spot, sounds like an AK that fell off. * Medical History: M igraine headache, Seizures, Heart murmur, Rheumatic fever, HTN, Eft elbow hairliine fx, Colonoscopy February 2016 with Tubular adenoma, mild osteoporosis on DEXA scanning September 2017, Normal mammogram 05/22 and normal after additional views 07/23 - Repeat additional views also normal 02/22- and normal 03/25. * Surgical History: r otator cuff (rt) , cholecystectomy , partial hysterectomy , colonoscopy , Right Total Knee Replacement 01/09/2023. * Hospitalization/Major Diagno stic Procedure: s urgeries , pneumonia , seizures , [facility]- Dilatin level elevated 10/2018, [facility]-Total Knee Replacement 12/2022. * Family History: F ather: , diagnosed with Cancer. M other: . P aternal Grand Father: . P aternal Grand Mother: . M aternal Grand Father: . M aternal Grand Mother: . S iblings: alive, HTN, diagnosed with Hypertension. C aleisha: alive, 1 daughter- seizures, HLD. 1 brother(s) . 1 son(s) , 2 daughter(s) - healthy. . * Social History: S moking A re you a:: nonsmoker. R ecreational drug use: no. Exercise: no. Home smoke detector use: yes. Caffeine: yes, frequency: 2-3 cokes daily. Living Will: Yes. Alcohol: no. Sexually active: no. Travel outside [place]: no. 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 * Medications: T aking Dilantin 100 MG Capsule 1 cap in the morning and 2 caps at night orally as directed , Taking Cyclobenzaprine HCl 10 MG Tablet 1 tab(s) orally 3 times a day , Taking TEGretol 200 MG Tablet 2 tabs orally twice daily , Taking Procto-Med HC 2.5 % Cream 1 sage applied topically 3 times a day , Taking Estradiol 0.1 MG/GM Cream as directed intravaginally M/W?F , Taking Propranolol HCl 20 MG Tablet 1 tab(s) orally 2 times a day , Notes to Pharmacist: In morning and early afternoon, Taking Losartan Potassium 25 MG Tablet 1 tab(s) orally once a day , Taking Promethazine HCl 25 MG Tablet 1 tab(s) orally every 6 hours , Medication List reviewed and reconciled with the patient * Allergies: V ISTARIL, SULFA, Imitrex, PROzac, Iodine, LIQUID TYLENOL, Augmentin: itching, PHENobarbital. Objective: * Vitals: N urse: jl, Pain: 2-back, Temp: 97.8, RR: 18, HR: 78, BP: 138/82, Ht: 65, Wt: 169.4, BMI:28.19. * Examination: G eneral Examination: S ignificant dry skin. There is a small SK/AK on the back that is scaly. Lungs are clear, heart rate regular. Abdomen soft. Assessment: * Assessment: 1. S eizures - R56.9 (Primary) 2 . H ypertension, essential - I10 ? 3 . X erosis of skin - L85.3 4 . R ectal bleed - K62.5 ? Plan: * Treatment: Value Reference Range C ARBAMAZEPINE, TOTAL 6.6 4.0-12.0 - mg/L * Brittany Kemp N 09/03/19 02:14:35 PM EDT > pt informedThis lab was reviewed by Brittany Kemp on 09/02/2024 at 14:14 PM EDT ?LAB: PHENYTOIN (713)* Value Reference Range P HENYTOIN 17.2 10.0-20.0 - mg/L * Brittany Kemp N 09/03/19 25 02:14:35 PM EDT > pt informedThis lab was reviewed by Brittany Kemp on 09/02/2024 at 14:14 PM EDT Notes: Overall doing well in regards to seizure control. No problems with medication toleration or efficacy. Will check levels today. Check CMP and CBC because of possible toxic medication issues??2.?Hypertension, essential? Refill Losartan Potassium Tablet, 25 MG, 1 tab(s), orally, once a day, 90 days, 90, Refills 1;?Refill Propranolol HCl Tablet, 20 MG, 1 tab(s), orally, 2 times a day, 90 days, 180, Refills 1, Notes to Pharmacist: In morning and early afternoon.?? Notes: Excellent control, will refill medication and check renal function?? 3.?Xerosis of skin? Notes: Has been using OTC lotions. Recommended CeraVe or Eucerin lotion.?? 4.?Rectal bleed?LAB: COMPREHENSIVE METABOLIC PANEL (10726)* Value Reference Range G LUCOSE 102 H 65-99 - mg/dL * U LEIA NITROGEN (BUN) 26 H 7-25 - mg/dL * C REATININE 0.90 0.60-1.00 - mg/dL * B UN/CREATININE RATIO 29 H 6-22 - (calc) * S ODIUM 138 135-146 - mmol/L * P OTASSIUM 4.8 3.5-5.3 - mmol/L * C HLORIDE 105 98-110 - mmol/L * C ARBON DIOXIDE 23 20-32 - mmol/L * C ALCIUM 9.2 8.6-10.4 - mg/dL * P ROTEIN, TOTAL 6.8 6.1-8.1 - g/dL * A LBUMIN 4.6 3.6-5.1 - g/dL * G LOBULIN 2.2 1.9-3.7 - g/dL (calc ) * A LBUMIN/GLOBULIN RATIO 2.1 1.0-2.5 - (calc) * B ILIRUBIN, TOTAL 0.3 0.2-1.2 - mg/dL * A LKALINE PHOSPHATASE 138 37-153 - U/L * A ST 15 10-35 - U/L * A LT 14 6-29 - U/L * E GFR 68 > OR = 60 - mL/min/1 .73m2 * Brittany Kemp 09/03/19 25 02:14:35 PM EDT > pt informedThis lab was reviewed by Brittany Kemp on 09/02/2024 at 14:14 PM EDT ?LAB: CBC (INCLUDES DIFF/PLT) (8011)* Value Reference Range W TAMY BLOOD CELL COUNT 5.6 3.8-10.8 - Thousan d/uL * R ED BLOOD CELL COUNT 4.81 3.80-5.10 - Million/ uL * H EMOGLOBIN 14.3 11.7-15.5 - g/dL * H EMATOCRIT 44.9 35.0-45.0 - % * M CV 93.3 80.0-100.0 - fL * M CH 29.7 27.0-33.0 - pg * M CHC 31.8 L 32.0-36.0 - g/dL * R DW 12.6 11.0-15.0 - % * P LATELET COUNT 218 140-400 - Thousand/u L * N EUTROPHILS 63.3 - % * A BSOLUTE NEUTROPHILS 3545 3205-9745 - cells/uL * L YMPHOCYTES 27.9 - % * A BSOLUTE LYMPHOCYTES 7582 278-6093 - cells/uL * M ONOCYTES 7.7 - % * A BSOLUTE MONOCYTES 431 200-950 - cells/uL * E OSINOPHILS 0.0 - % * A BSOLUTE EOSINOPHILS 0 L 15-500 - cells/uL * B ASOPHILS 1.1 - % * A BSOLUTE BASOPHILS 62 0-200 - cells/uL * M PV 10.4 7.5-12.5 - fL * Brittany Kemp 09/03/19 25 02:14:35 PM EDT > pt informedThis lab was reviewed by Brittany Kemp on 09/02/2024 at 14:14 PM EDT Notes: Continue hemorrhoid treatment. Recommended daily Metamucil to keep stools soft and minimize time pushing on the commode. Check CBC today Reviewed more normal colonoscopy 1 year ago?? * Follow Up: p rn,3 Months * * Sign off status: Completed true * Provider: Kane Leon MD Date: 08/27/2024 Generated for Anali byers/Neno/Brodyransmitting on: 0 10/09/2024 08:07 AM EDT History and Physical Notes * HPI (History of Present Illness) Category Sub-Category Detail Notes Category Not es gen Oliva presents to follow-up for multiple medical problems. Overall feels well. Rectal bleeding resolved with treatment of her hemorrhoid, had a couple of episodes last week, thinks that the hemorrhoid might be back. She has not been taking Metamucil on a regular basis. Has had no seizures for many years, would like her Dilantin and Tegretol levels checked. Had a small lesion that fell off of her back and now has an itchy spot, sounds like an AK that fell off. Examination Category Sub-Category Detail Notes Category Not es General Examination Significant dry skin. There is a small SK/AK on the back that is scaly. Lungs are clear, heart rate regular. Abdomen soft.
--- OUTSIDE RECORDS SUMMARY | 2024-10-09 08:10 | XMS_ITS | Patient Health Record ---
Author Organization [facility] Address [address] [place] [address] Care Team Providers Care Medication Tech Name Role Phone Nikhil Leon Primary Care Provider [phone] Nikhil Leon Unavailable Unavailable Migration, Provider Unavailable [...] Reference Range Notes COMPREHENSIVE METABOLIC PANE L (21457) Reviewed date:09/02/2024 02:14:44 PM Interpretation: Performing Lab:CB, [facility] [address] [facility], [place] HospitalDoffFI[address] Louie Sadler Notes/Report: NON-FASTING; NON-FASTING; NON-FASTING; NON-FASTING GLUCOSE 102 65-99 mg/dL prediabetes and should be confirmed with a follow-up test. Fasting reference interval For someone without known diabetes, a glucose value between 100 and 125 mg/dL is consistent with UREA NITROGEN (BUN) 26 7-25 mg/dL CREATININE [...] 9) Reviewed date:09/02/2024 02:14:44 PM Interpretation: Performing Lab:OITS, [facility], [place] HospitalFnbaRP[address] Louie Sadler Notes/Report: NON-FASTING; NON-FASTING; NON-FASTING; NON-FASTING [...] MPV 10.4 7.5-12.5 fL ABSOLUTE NEUTROPHILS [phone] cells/uL ABSOLUTE LYMPHOCYTES 7314 086-2525 cells/uL ABSOLUTE MONOCYTES 431 200-950 cells/uL ABSOLUTE EOSINOPHILS 0 15-500 cells/uL ABSOLUTE BASOPHILS 62 0-200 cells/uL NEUTROPHILS 63.3 LYMPHOCYTES 27.9 MONOCYTES 7.7 EOSINOPHILS 0.0 BASOPHILS 1.1 CARBAMAZEPINE, TOTAL (329) Reviewed date:09/02/2024 02:14:44 PM Interpretation: Performing Lab:CB, [facility] [address], [place] RobmWX[address] Louie Sadler Notes/Report: NON-FASTING; NON-FASTING; NON-FASTING; NON-FASTING CARBAMAZEPINE, TOTAL 6.6 4.0-12.0 mg/L PHENYTOIN (713) Reviewed date:09/02/2024 02:14:44 PM Interpretation: Performing Lab:OTIS, [facility] [address], [place] MrmuUO[address] Louie Sadler Notes/Report: NON-FASTING; NON-FASTING; NON-FASTING; NON-FASTING PHENYTOIN 17.2 10.0-20.0 mg/L PHENYTOIN (713) Reviewed date:03/07/2024 09:48:21 AM Interpretation: Performing Lab:OTIS, [facility] [employer] [address], [place] SbnhKK[address] Louie Sadler Notes/Report: PHENYTOIN 13.1 10.0-20.0 mg/L Your request to have a duplicate copy faxed has been acknowledged. Queued to: [id number] CARBAMAZEPINE, TOTAL (329) Reviewed date:03/07/2024 09:48:21 AM Interpretation: Performing Lab:OTIS [facility] [address], [place] ReyesFkdcGY[address] Louie Sadler Notes/Report: CARBAMAZEPINE, TOTAL 6.1 4.0-12.0 mg/L VITAMIN B12 (927) Reviewed date:03/06/2024 12:33:40 PM Interpretation: Performing Lab:OTIS [facility] [address], [place] EhqtTX[address] Louie Sadler Notes/Report: VITAMIN B12 379 968-4980 pg/mL Please Note: Although the reference range for vitamin B12 is 200-1100 pg/mL, it has been reported that between 5 and 10% of patients with values between 200 and 400 pg/mL may experience neuropsychiatric and hematologic abnormalities due to occult B12 deficiency; less than 1% of patients with values above 400 pg/mL will have symptoms. FOLATE, SERUM (466) Reviewed date:03/06/2024 12:33:40 PM Interpretation: Performing Lab:OTIS, [facility] [address], [place] ReyesCdtvLE[address] Louie Sadler Notes/Report: FOLATE, SERUM 10.7 Reference Range Low: <3.4 Borderline: 3.4-5.4 Normal: >5.4 CBC (INCLUDES DIFF/PLT) (639 9) Reviewed date:03/06/2024 12:33:40 PM Interpretation: Performing Lab:OTIS [facility] [address], [place] ReyesYeeaXL[address] Louie Sadler Notes/Report: WHITE BLOOD CELL COUNT 5.2 3.8-10.8 Thousand/ uL RED BLOOD CELL COUNT 4.87 3.80-5.10 Million/uL HEMOGLOBIN 15.2 11.7-15.5 g/dL HEMATOCRIT 44.5 35.0-45.0 % MCV 91.4 80.0-100.0 fL MCH 31.2 27.0-33.0 pg MCHC 34.2 32.0-36.0 g/dL For adults, a slight decrease in the calculated MCHC value (in the range of 30 to 32 g/dL) is most likely not clinically significant; however, it should be interpreted with caution in correlation with other red cell parameters and the patient's clinical condition. RDW 12.1 11.0-15.0 % PLATELET COUNT 245 140-400 Thousand/uL MPV 9.9 7.5-12.5 fL ABSOLUTE NEUTROPHILS 3271 2962-8283 cells/uL ABSOLUTE LYMPHOCYTES 7012 861-1833 cells/uL ABSOLUTE MONOCYTES 390 200-950 cells/uL ABSOLUTE EOSINOPHILS 31 15-500 cells/uL ABSOLUTE BASOPHILS 57 0-200 cells/uL NEUTROPHILS 62.9 LYMPHOCYTES 27.9 MONOCYTES 7.5 EOSINOPHILS 0.6 BASOPHILS 1.1 MAGNESIUM (622) Reviewed date:03/06/2024 12:33:40 PM Interpretation: Performing Lab:Mercedes [facility] [address], [place] ReyesAokdHM[address] Louie Sadler Notes/Report: MAGNESIUM 2.0 1.5-2.5 mg/dL COMPREHENSIVE METABOLIC PANE L (04216) Reviewed date:03/06/2024 12:33:40 PM Interpretation: Performing Lab:OTIS [facility] [address], [place] ReyesWnnuLB[address] Louie Sadler Notes/Report: GLUCOSE 93 65-99 mg/dL Fasting reference interval UREA NITROGEN (BUN) 26 7-25 mg/dL CREATININE 0.92 0.60-1.00 mg/dL EGFR 66 > OR = 60 mL/min/1.73m2 BUN/CREATININE RATIO 28 6-22 (calc) SODIUM 138 135-146 mmol/L POTASSIUM 4.8 3.5-5.3 mmol/L CHLORIDE 103 98-110 mmol/L CARBON DIOXIDE 24 20-32 mmol/L CALCIUM 8.9 8.6-10.4 mg/dL PROTEIN, TOTAL 6.7 6.1-8.1 g/dL ALBUMIN 4.4 3.6-5.1 g/dL GLOBULIN 2.3 1.9-3.7 g/dL (calc) ALBUMIN/GLOBULIN RATIO 1.9 1.0-2.5 (calc) BILIRUBIN, TOTAL 0.4 0.2-1.2 mg/dL ALKALINE PHOSPHATASE 151 37-153 U/L AST 24 10-35 U/L ALT 32 6-29 U/L LIPID PANEL, STANDARD (7600) Reviewed date:03/06/2024 12:33:40 PM Interpretation: Performing Lab:OTIS [facility] [address] [facility] Louie Sadler Notes/Report: CHOLESTEROL, TOTAL 177 <200 mg/dL HDL CHOLESTEROL 84 > OR = 50 mg/dL TRIGLYCERIDES 43 <150 mg/dL LDL-CHOLESTEROL 81 Reference range: <100 Desirable range <100 mg/dL for primary prevention; <70 mg/dL for patients with CHD or diabetic patients with > or = 2 CHD risk factors. LDL-C is now calculated using the Clement-Rukhsana calculation, which is a validated novel method providing better accuracy than the Friedewald equation in the estimation of LDL-C. Clement BURGOS et al. MARIE. 2013;310(19): 5677-8658 (http://education.Panviva.Ciplex/faq/IDW156) CHOL/HDLC RATIO 2.1 <5.0 (calc) NON HDL CHOLESTEROL 93 <130 mg/dL (calc) For patients with diabetes plus 1 major ASCVD risk factor, treating to a non-HDL-C goal of <100 mg/dL (LDL-C of <70 mg/dL) is considered a therapeutic option. IRON, TIBC AND FERRITIN PANE L (5616) Reviewed date:03/06/2024 12:33:39 PM Interpretation: Performing Lab:OTIS [facility] [address], [place] MqrgXE[address] Louie Sadler Notes/Report: IRON, TOTAL 182 45-160 mcg/dL IRON BINDING CAPACITY 330 250-450 mcg/dL (essence c) % SATURATION 55 16-45 % (calc) FERRITIN 84 16-288 ng/mL THYROID PANEL WITH TSH (7444 ) Reviewed date:03/06/2024 12:33:39 PM Interpretation: Performing Lab:OTIS [facility] [address] [employer] [place] RadlUU[address] Louie Sadler Notes/Report: T3 UPTAKE 31 22-35 % T4 (THYROXINE), TOTAL 4.0 5.1-11.9 mcg/dL FREE T4 INDEX (T7) 1.2 1.4-3.8 TSH 2.06 0.40-4.50 mIU/L Mammogram : Bilateral Reviewed date:03/19/2024 09:12:49 PM Interpretation: Performing Lab: Notes/Report: X ray : Hand, Right Reviewed date:01/14/2024 12:33:07 PM Interpretation: Performing Lab: Notes/Report: Urinalysis Reviewed date:06/09/2024 11:09:47 AM Interpretation: Performing Lab: Notes/Report: Color/Clarity yellow Leuk neg Nitrite neg Urobili 0.2 Protein trace pH 6.0 Blood neg Sp. Gr. 1.025 Ketone neg Bili small Glucose neg PHENYTOIN (713) Reviewed date:10/24/2023 09:58:31 AM Interpretation: Performing Lab:OTIS [facility] [address], [facility] HospitalZudnRD[address] Louie Sadler Notes/Report: NON-FASTING NON-FASTING NON-FASTING NON-FASTING PHENYTOIN 14.4 10.0-20.0 mg/L NO COLLECTION DATE RECEIVED. WE HAVE USED THE DATE THE SPECIMEN WAS RECEIVED BY THIS LABORATORY THE COLLECTION DATE. IF THIS IS INCORRECT, PLEASE CONTACT CLIENT SERVICES. PHONE NUMBER: [phone] CARBAMAZEPINE, TOTAL (329) Reviewed date:10/24/2023 09:58:30 AM Interpretation: Performing Lab:OTIS [facility] [address], [facility] HospitalMyrrYK[address] Louie Sadler Notes/Report: NON-FASTING NON-FASTING NON-FASTING NON-FASTING CARBAMAZEPINE, TOTAL 5.4 4.0-12.0 mg/L COMPREHENSIVE METABOLIC PANE L (05883) Reviewed date:10/24/2023 09:58:30 AM Interpretation: Performing Lab:OTIS [facility] [address] [facility], [facility] HospitalVorkMP[address] Louie Sadler Notes/Report: NON-FASTING NON-FASTING NON-FASTING NON-FASTING GLUCOSE 101 65-99 mg/dL Fasting reference interval For someone without known diabetes, a glucose value between 100 and 125 mg/dL is consistent with prediabetes and should be confirmed with a follow-up test. UREA NITROGEN (BUN) 15 7-25 mg/dL CREATININE 0.75 0.60-1.00 mg/dL EGFR 85 > OR = 60 mL/min/1.73m2 BUN/CREATININE RATIO SEE NOTE: 6-22 (calc) Not Reported: BUN and Creatinine are within reference range. SODIUM 140 135-146 mmol/L POTASSIUM 4.5 3.5-5.3 mmol/L CHLORIDE 106 98-110 mmol/L CARBON DIOXIDE 28 20-32 mmol/L CALCIUM 9.4 8.6-10.4 mg/dL PROTEIN, TOTAL 7.0 6.1-8.1 g/dL ALBUMIN 4.6 3.6-5.1 g/dL GLOBULIN 2.4 1.9-3.7 g/dL (calc) ALBUMIN/GLOBULIN RATIO 1.9 1.0-2.5 (calc) BILIRUBIN, TOTAL 0.3 0.2-1.2 mg/dL ALKALINE PHOSPHATASE 141 37-153 U/L AST 18 10-35 U/L ALT 17 6-29 U/L LIPID PANEL, STANDARD (7600) Reviewed date:10/24/2023 09:58:30 AM Interpretation: Performing Lab:OTIS, [facility] [address], [place] SulrMT[address] Louie Sadler Notes/Report: NON-FASTING NON-FASTING NON-FASTING NON-FASTING CHOLESTEROL, TOTAL 212 <200 mg/dL HDL CHOLESTEROL 95 > OR = 50 mg/dL TRIGLYCERIDES 70 <150 mg/dL LDL-CHOLESTEROL 101 Reference range: <100 Desirable range <100 mg/dL for primary prevention; <70 mg/dL for patients with CHD or diabetic patients with > or = 2 CHD risk factors. LDL-C is now calculated using the Elise calculation, which is a validated novel method providing better accuracy than the Friedewald equation in the estimation of LDL-C. Clement SS et al. MARIE. 2013;310(79): 3026-7826 (http://education.Just Sing It/faq/XJO062) CHOL/HDLC RATIO 2.2 <5.0 (calc) NON HDL CHOLESTEROL 117 <130 mg/dL (calc) For patients with diabetes plus 1 major ASCVD risk factor, treating to a non-HDL-C goal of <100 mg/dL (LDL-C of <70 mg/dL) is considered a therapeutic option. Medications Medication SIG (Take, Route, Frequency, Duration) Notes Start Date End Date Status Losartan Potassium 25 MG 1 tab(s) orally once a day; Duration: 90 days Active Triamcinolone Acetonide 0.5 % 1 sage applied topically 2 times a day; Duration: 7 day(s) 08/28/2024 Active Cyclobenzaprine HCl 10 MG 1 tab(s) orally 3 times a day; Duration: 5 days 05/05/2024 Active Propranolol HCl 20 MG 1 tab(s) orally 2 times a day; Duration: 90 days In morning and early afternoon 02/25/2024 Active Dilantin 100 MG 1 cap in the morning and 2 caps at night orally as directed; Duration: 90 days Active Promethazine HCl 25 MG 1 tab(s) orally e very 6 hours; Duration: 5 days 05/13/2024 Active Estradiol 0.1 MG/GM as directed intravaginally M/W?F; Duration: 30 days 06/09/2024 Active Procto-Med HC 2.5 % 1 sage applied topically 3 times a day; Duration: 14 days 06/09/2024 Active TEGretol 200 MG 2 tabs orally twice daily; Duration: 90 days Active Immunizations Vaccine Route Administration Date Status Commtien Abdul (Tdap) IM Intramuscular 02/06/2015 Administered Covid Moderna Unknown 04/14/2021 Administered Covid Moderna Unknown 05/12/2021 Administered Hep A Adult 2 Dose IM Intramuscular 06/08/2018 Administere d Pneumovax 23 IM Intramuscular 10/26/2017 Administered Prevnar PCV-13 (Pneumococcal conjugate 13) IM Intramuscular 12/30/2018 Administered Prevnar PCV-20 (Pneumococcal conjugate 20) IM Intramuscular 03/29/2022 Administered SHINGRIX IM Intramuscular 02/25/2024 Administered Problems Problem Type SNOMED Code ICD Code Onset Dates Problem Status W/U Status Risk Notes Problem Primary insomnia (9788964) Primary insomnia (F51.01) Active confirmed Problem Essential tremor (236920711) Essential tremor (G25.0) Active confirmed Problem Xanthoma of right eyelid (disorder) (621417724005896) Xanthelasma of right eye, 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) Active confirmed Problem Xanthelasma of left eye, unspecified eyelid (H02.66) Active confirmed Problem History of musculoskeletal operation (405977441) Aftercare following joint replacement surgery (Z47.1) Active confirmed Problem Seizure disorder (274070144) Seizure disorder (G40.909) Active confirmed Problem Gastroesophageal reflux disease (501997536) GERD (gastroesophag eal reflux disease) (K21.9) Active confirmed Problem Hyperlipidemia (60987008) Hyperlipemia, idiopathic familial (E78.5) Active confirmed Problem Essential hypertension (36341461) Hypertension, essential (I10) Active confirmed Problem Seasonal allergy (893619860) Seasonal allergies (J30.2) Active confirmed Problem Tubular adenoma of colon (563051181) Tubular adenoma of colon (D12.6) Active confirmed Problem Mammography abnormal (946530019) Abnormal mammogram of right breast (R92.8) Active confirmed Problem Tachycardia (2216220) Tachycardia (R00.0) Active confirmed Problem Seizure (38236112) Seizures (R56.9) Active confirmed Problem Abnormal mammogram (307504522) Abnormal mammogram (R92.8) Active confirmed Problem Chronic serous otitis media (55779857) Bilateral chronic serous otitis media (H65.23) Active confirmed Problem Insomnia (278417744) Insomnia, unspecified type (G47.00) Active confirmed Problem Sciatica (23337716) Acute left-sided back pain with sciatica (M54.42) Active confirmed Problem Adult health examination (566045517) Healthcare maintenance (Z00.00) Active confirmed Problem Artificial knee joint present (735781419275) Status post right knee replacement (Z96.651) Active confirmed Problem Artificial knee joint present (682155546076) History of knee replacement procedure of right knee (Z96.651) Active confirmed Vital Signs Heart Rate 78 /min 08/27/2024 Temperature 97.8 degrees Fahrenheit 08/27/2024 Blood pressure diastolic 82 mm Hg 08/27/2024 Height 65 in 08/27/2024 Blood pressure systolic 138 mm Hg 08/27/2024 Weight 169.4 lbs 08/27/2024 BMI 28.19 kg/m2 08/27/2024 Encounters Encounter Location Date Provider Diagnosis [facility] [address] [place] [address] 01/07/2024 Nikhil Besson [facility] [address] [place] [address] 02/13/2024 Nikhil Besson [facility] [place] [address] [place] [address] 02/25/2024 Nikhil Besson Seizures R56.9 [facility] [address] [place] [address] 04/08/2024 Nikhil Besson [facility] [place] [address] [address] 05/13/2024 Nikhil Besson [facility] [address] [address] 05/26/2024 Nikhil Besson Seizures R56.9 [facility] [place] [address] [address] 08/05/2024 Nikhil Besson Tremor R25.1 [facility] [address] [place] [address] 08/28/2024 Nikhil Besson [facility] [address] [place] [address] 11/21/2023 Nikhil Besson Hypertension, essential I10 ; Insomnia, unspecified type G47.00 and Tick bite, unspecified site, initial encounter W57.XXXA [facility] [address] [place] [address] 01/11/2024 Nikhilnba Leon Acute bronchitis, unspecified organism J20.9 and Right hand pain M79.641 [facility] [address] [place] [address] 06/09/2024 Nikhilnba Leon Hematuria R31.9 ; Hemorrhoids, unspecified hemorrhoid type K64.9 and Urethritis N34.2 [facility] [address] [place] [address] 05/05/2024 Nikhilnba Leon Seizures R56.9 ; Hypertension, essential I10 ; Mechanical low back pain M54.59 ; Malodorous urine R82.90 and Routine medical exam Z00.00 [facility] [address] [place] [address] 10/22/2023 Nikhilnba Leon Hypertension, essential I10 ; Hyperlipemia, idiopathic familial E78.5 ; Seizures R56.9 ; Primary insomnia F51.01 and Accidental spider bite T63.301A [facility] [address] [place] [address] 02/25/2024 Nikhil Edward Seizures R56.9 ; Hyperlipemia, idiopathic familial E78.5 ; Hypertension, essential I10 ; Tremor R25.1 ; H/O screening mammography Z92.89 ; Encounter for immunization Z23 and Arthritis M19.90 [facility] [address] [place] [address] 08/27/2024 Nikhilnba Leon Seizures R56.9 ; Hypertension, essential I10 ; Xerosis of skin L85.3 and Rectal bleed K62.5 [facility] [address] [place] [address] 03/05/2024 Nikhil Besson [facility] [address] [place] [address] 07/05/2024 Provider Migration Hemorrhoids, unspecified hemorrhoid type K64.9 and Urethritis N34.2 Assessments Encounter Date Diagnosis (ICD Code) Assessment Notes Treatment Notes Treatment Clinical Notes Section Notes 10/22/2023 Hypertension, essential (ICD-10 - I10) - elevated today, reports mild BERNSTEIN that is intermittent in nature - will start Losartan today for antihypertensive control. continue with bisoprolol - Will check BMP today. Follow up in 4-6 weeks for repeat BP check 10/22/2023 Hyperlipemia, idiopathic familial (ICD-10 - E78.5) 01/11/2024 Acute bronchitis, unspecified organism (ICD-10 - J20.9) Discussed the etiology and expected course of bronchitis. Discussed the rationale for antibiotics and steroid use and the importance of completeing the prescription as prescribed. Discussed supportive care. Discussed the signs and symptoms of worsening infection/respirator y distress that may indicate need for reassement in clinic/ED. 01/11/2024 Right hand pain (ICD-10 - M79.641) Given lack of injury mechanism and unusual exam we will check x-ray. I will review x-ray results personally 02/25/2024 Seizures (ICD-10 - R56.9) Patient well controlled on dilanten and tegretol. Will check a carbamazepine level and phenytoin level and adjust therapy if needed. 02/25/2024 Hyperlipemia, idiopathic familial (ICD-10 - E78.5) Patient has hyperlipidema and hypertension. She is on losartan with no side effects. Will check lipid levels today, and adjust therapy if needed. 02/25/2024 Seizures (ICD-10 - R56.9) 05/05/2024 Seizures (ICD-10 - R56.9) No recent seizures. Antiepileptic drug levels were reviewed in March. No changes in dose at that point. I will see her in August for redo labs 05/05/2024 Hypertension, essential (ICD-10 - I10) Blood pressure normal. No change in plan 05/26/2024 Seizures (ICD-10 - R56.9) 06/09/2024 Hematuria (ICD-10 - R31.9) UA normal. Urethral irritation on exam. Likely some component of genitourinary syndrome of menopause. will send estrase cream to be used 3x weekly. 06/09/2024 Hemorrhoids, unspecified hemorrhoid type (ICD-10 - K64.9) Has had hemorrhoids for years, likely bleeding intermittently. Will send hemorrhoid cream. 07/05/2024 Hemorrhoids, unspecified hemorrhoid type (ICD-10 - K64.9) 08/05/2024 Tremor (ICD-10 - R25.1) 08/27/2024 Seizures (ICD-10 - R56.9) Overall doing well in regards to seizure control. No problems with medication toleration or efficacy. Will check levels today. Check CMP and CBC because of possible toxic medication issues 08/27/2024 Hypertension, essential (ICD-10 - I10) Excellent control, will refill medication and check renal function 11/21/2023 Hypertension, essential (ICD-10 - I10) Patient encouraged to beign Losartan. No changes to treatment at this time. 11/21/2023 Insomnia, unspecified type (ICD-10 - G47.00) Patient encourgaed to start Mirtazipine for Insomnia. No changes to treatment at this time. 11/21/2023 Tick bite, unspecified site, initial encounter (ICD-10 - W57.XXXA) Patient presents with two tick bites. One on left medial breast and on right medial scapula border. Bites do not look to be inflamed or infected. No rash present. Patient denies fever or chills. No treatment necessary at this time. 08/27/2024 Xerosis of skin (ICD-10 - L85.3) Has been using OTC lotions. Recommended CeraVe or Eucerin lotion. 06/09/2024 Urethritis (ICD-10 - N34.2) 07/05/2024 Urethritis (ICD-10 - N34.2) 05/05/2024 Mechanical low back pain (ICD-10 - M54.59) No red flag symptoms. On Celebrex with good effect, cautious and low-dose Flexeril as needed use only. She is taken this before and has had no problems with it 02/25/2024 Hypertension, essential (ICD-10 - I10) Patient's BP 144/76 today. Not at treatment goal. Will discontinue bisoprolol and add propranolol 20mg BID to help lower her BP and control her tremor. Will check back in 3 months at next appt. 10/22/2023 Seizures (ICD-10 - R56.9) - stable, no seizures reported past five years - will check carbamazepine and phenytoin levels today 10/22/2023 Primary insomnia (ICD-10 - F51.01) - reports maximum of 3-4 hours a day, difficulty in falling and maintaining sleep - tried melatonin previously without benefits - will start Mirtazapine for sleep aid, no significant interactions with her anti-seizure medications. 02/25/2024 Tremor (ICD-10 - R25.1) Patient complains of what sounds like an essential tremor today. Have added propranolol 20mg BID to help. Will check back in 3 months to see if that helped. 05/05/2024 Malodorous urine (ICD-10 - R82.90) No real red flag symptoms of cystitis, symptoms seem to come and go, I think they are probably related to diet, encouraged her to drink a little bit more water with some lemon juice and let me know if anything changes 08/27/2024 Rectal bleed (ICD-10 - K62.5) Continue hemorrhoid treatment. Recommended daily Metamucil to keep stools soft and minimize time pushing on the commode. Check CBC today Reviewed more normal colonoscopy 1 year ago 05/05/2024 Routine medical exam (ICD-10 - Z00.00) Patient has excellent functional status. Depression screening negative. Living will in place, daughter is healthcare surrogate. Does not use alcohol or tobacco. 06/02 word recall. Up-to-date with colon screening. Up-to-date with vaccines. 02/25/2024 H/O screening mammography (ICD-10 - Z92.89) Patient due for mammogram. Will fax order to get that set up. 10/22/2023 Accidental spider bite (ICD-10 - T63.301A) - one week ago, reported fatigue and nausea for one day - erythema and edema have resolved. No other systemic symptoms - continue to monitor 02/25/2024 Encounter for immunization (ICD-10 - Z23) Patient had zostavax in 2000. Needs updated Shingrex vaccine. Will give first dose today. 02/25/2024 Arthritis (ICD-10 - M19.90) Plan Of Treatment Pending Test Test Name Order Date N-CBC 04/24/2006 N-Glycohemoglobin (HbA1C) 10/10/2012 N-Dilanin level 04/24/2006 N-Tegretol level 04/24/2006 N-Urine Culture and Sensitivity 02/15/20 11 Urinalysis 07/31/2009 X ray : Foot, Right 02/24/2006 Mammogram : Diagnostic 04/24/2006 Mammogram : Diagnostic 2020 X ray : Spines, Thoracic Spine 7 N-CMP 04/24/2006 N-CMP 10/10/2012 N-Lipid Panel 10/10/2012 Physical Therapy 10/21/2018 Mammogram : Additional Views 01/16/2022 Mammogram : Bilateral 10/10/2012 H-CBC with AUTO DIFF 10/07/2014 H-CMP 10/07/2014 H-LIPID PANEL 10/07/2014 H-LIPID PANEL 07/15/2015 H-LIPID PANEL 11/08/2009 H-PHENYTOIN (DILANTIN) 07/15/2010 H-PHENYTOIN (DILANTIN) 10/07/2014 H-CARBAMAZEPINE (TEGRETOL) 10/07/2014 C-URINE CULTURE 06/21/2018 VENIPUNCT, ROUTINE* 04/06/2015 M-Complete Blood Count Auto Diff 021 M-Comprehensive Metabolic Panel 02/04/20 21 M-Lipid Panel 02/03/2021 M-Valproic Acid Total 02/03/2021 Next Appt Details Provider Name:Nikhil Leon, 10/09/2024 10:00:00 AM, [address] [place] [address], [place], [address], Provider Name:Nikhil Leon, 12/29/2024 09:00:00 AM, [facility] [address] [facility], [address], [place], [address], Insurance Providers Payer Name Payer Address Payer Phone Subscriber Number Group Number Insured Name Patient Relationship to Insured Coverage Start Date Coverage End Date [place] [place] [address] [id number] Hazel Abdi Self - patient is the insured [employer] [address] [place] [address] [phone] [id number] Hazel Abdi Self - patient is the insured [employer] [address] [place] [address] Floor 6 [place] [address] [phone] ACL Hazel Abdi Self - patient is the insured Medications Administered Medication Instructions Date of Administration Dosage Notes Dexamethasone 4mg Injection 01/11/2024 4 mg Kenalog 40mg 10/10/2016 40 mg Triamcinolone Acetonide 40mg Injection 03/23/2018 1 mL Triamcinolone Acetonide 40mg Injection 10/10/2019 2 mL Triamcinolone Acetonide 40mg Injection 05/28/2020 1 mL Medical (General) History Medical History History ICD Code migraine headache seizures heart murmur rheumatic fever HTN eft elbow hairliine fx Colonoscopy February 2016 with Tubular a denoma mild osteoporosis on DEXA scanning September 2017 Normal mammogram 05/22 and no rmal after additional views 07/23 - Repeat additional views also normal 02/22- and normal 03/25 Surgical History Surgery Date(Month/Year) rotator cuff (rt) cholecystectomy partial hysterectomy colonoscopy Right Total Knee Replacement 01/09/2023 Hospitalization History Reason Date(Month/Year) surgeries seizures pneumonia [facility]-Total Knee Replacement 12/2022 [facility]- Dilatin level elevated 10/2018
== END 2024-10-09 23:59 | disposition home or self-care (01) ==
LOC: RT 07:59
PROVIDERS: PCP Internal Medicine Adolescent Medicine; Visit Provider Nurse Practitioner
DX: I49.1 Atrial premature depolarization (principal); I47.10 Supraventricular tachycardia, unspecified; I45.89 Other specified conduction disorders
CPT/HCPCS: 93270

== ENCOUNTER 2024-11-06 13:38 | Emergency (ER) | payer MEDICARE, OTHER, SELFPAY ==
--- OUTSIDE RECORDS SUMMARY | 2024-07-05 17:30 | XMS_ITS ---
Author Organization [facility] Address [address] [place] [address] Care Team Providers Care Centerless Grinding Machine Adjuster Name Role Phone Nikhil Leon Primary Care [...] Unknown Drug Allergy Active REASON FOR VISIT [facility] To [facility] Conversion Encounter Medications Medication SIG (Take, Route, [...] Active Encounters Encounter Location Date Provider Diagnosis [facility] [address] [facility] [address] [facility] [address] [place] [id number] 07/05/2024 Provider Migration Hemorrhoids, unspecified hemorrhoid type [...] 06/09/2024 Next Appt Details Provider Name:Nikhil Leon, 12/29/2024 09:00:00 AM, [address] [facility] [address] [facility], [address], [place], [address], Progress Notes * Hazel ABDI SDOB:1950 (73 yo F)Acc No.[id number]:07/05/2024 Patient: Hazel GRANADOS Provider: Cinthia Keenan :1950 A ge:73 Y S ex:Female Date:07/05/2024 Address:[facility] [address], [id number] Pcp:Nikhil Leon Subjective: * Chief Complaints: * [...] Electronic signature of Prov ider Migration on 11/06/2024 at 01:51 PM EDT Sign off status: Pending * Provider: Cinthia hooks Migration Date: 0 07/05/2024 Generated for Anali byers/Neno/Randy on: 0 11/06/2024 01:51 PM EDT
--- OUTSIDE RECORDS SUMMARY | 2024-10-09 06:00 | XMS_ITS ---
Author Organization [facility] Address [address] [place] [address] [place] [address] Care Team Providers Care Social Work Coordinator Name Role Phone Nikhil Leon Primary Care [...] Active Results Component Value Reference Range Notes THYROID PANEL WITH TSH (7444 ) Reviewed date:10/13/2024 03:25:47 PM Interpretation: Performing Lab:[id number] [address] [facility] CenterPtqhLB[address] Louie Sadler Notes/Report: NON-FASTING; NON-FASTING; NON-FASTING; NON-FASTING; NON-FAST T3 UPTAKE 32 22-35 % T4 (THYROXINE), TOTAL 4.8 5.1-11.9 mcg/dL FREE T4 INDEX (T7) 1.5 1.4-3.8 TSH 1.88 0.40-4.50 mIU/L COMPREHENSIVE METABOLIC PANE L (29529) Reviewed date:10/13/2024 03:25:48 PM Interpretation: Performing Lab:[facility] [employer] [facility] HospitalUscmPJ[address] Louie Sadler Notes/Report: NON-FASTING; NON-FASTING; NON-FASTING; NON-FASTING; NON-FAST GLUCOSE 109 65-99 mg/dL Fasting reference interval For someone without known diabetes, a glucose value between 100 and 125 mg/dL is consistent with prediabetes and should be confirmed with a follow-up test. UREA NITROGEN (BUN) 22 7-25 mg/dL CREATININE 0.78 0.60-1.00 mg/dL EGFR 80 > OR = 60 mL/min/1.73m2 BUN/CREATININE RATIO SEE NOTE: 6-22 (calc) Not Reported: BUN and Creatinine are within reference range. SODIUM 139 135-146 mmol/L POTASSIUM 4.5 3.5-5.3 mmol/L CHLORIDE 108 98-110 mmol/L CARBON DIOXIDE 23 20-32 mmol/L CALCIUM 9.1 8.6-10.4 mg/dL PROTEIN, TOTAL 6.7 6.1-8.1 g/dL ALBUMIN 4.5 3.6-5.1 g/dL GLOBULIN 2.2 1.9-3.7 g/dL (calc) ALBUMIN/GLOBULIN RATIO 2.0 1.0-2.5 (calc) BILIRUBIN, TOTAL 0.4 0.2-1.2 mg/dL ALKALINE PHOSPHATASE 125 37-153 U/L AST 17 10-35 U/L ALT 15 6-29 U/L MAGNESIUM (622) Reviewed date:10/13/2024 03:25:48 PM Interpretation: Performing Lab:[facility] [employer], [facility] HospitalTtljTB[address] Louie Sadler Notes/Report: NON-FASTING; NON-FASTING; NON-FASTING; NON-FASTING; NON-FAST MAGNESIUM 2.1 1.5-2.5 mg/dL PHOSPHATE ( PHOSPHORUS) (7 18) Reviewed date:10/13/2024 03:25:48 PM Interpretation: Performing Lab:[facility] [employer], [facility] HospitalTpwlIW[address] Louie Sadler Notes/Report: NON-FASTING; NON-FASTING; NON-FASTING; NON-FASTING; NON-FAST PHOSPHATE ( PHOSPHORUS) 4.4 2.1-4.3 mg/dL CBC (INCLUDES DIFF/PLT) (639 9) Reviewed date:10/13/2024 03:25:48 PM Interpretation: Performing Lab:[facility] [address], United HospitalWbvxAD[address] Louie Sadler Notes/Report: NON-FASTING; NON-FASTING; NON-FASTING; NON-FASTING; NON-FAST WHITE BLOOD CELL COUNT 6.1 3.8-10.8 Thousand/ uL RED BLOOD CELL COUNT 4.71 3.80-5.10 Million/uL HEMOGLOBIN 14.3 11.7-15.5 g/dL HEMATOCRIT 44.0 35.0-45.0 % MCV 93.4 80.0-100.0 fL MCH 30.4 27.0-33.0 pg MCHC 32.5 32.0-36.0 g/dL For adults, a slight decrease in the calculated MCHC value (in the range of 30 to 32 g/dL) is most likely not clinically significant; however, it should be interpreted with caution in correlation with other red cell parameters and the patient's clinical condition. RDW 13.0 11.0-15.0 % PLATELET COUNT 214 140-400 Thousand/uL MPV 9.0 7.5-12.5 fL ABSOLUTE NEUTROPHILS 3697 1850-7683 cells/uL ABSOLUTE LYMPHOCYTES 8715 761-1673 cells/uL ABSOLUTE MONOCYTES 458 200-950 cells/uL ABSOLUTE EOSINOPHILS 281 15-500 cells/uL ABSOLUTE BASOPHILS 79 0-200 cells/uL NEUTROPHILS 60.6 LYMPHOCYTES 26.0 MONOCYTES 7.5 EOSINOPHILS 4.6 BASOPHILS 1.3 CARBAMAZEPINE, TOTAL (329) Reviewed date:10/13/2024 03:25:48 PM Interpretation: Performing Lab:[facility] [address], United HospitalDtpiQC[address] Louie Sadler Notes/Report: NON-FASTING; NON-FASTING; NON-FASTING; NON-FASTING; NON-FAST CARBAMAZEPINE, TOTAL 5.6 4.0-12.0 mg/L PHENYTOIN (713) Reviewed date:10/13/2024 03:25:48 PM Interpretation: Performing Lab:[facility] [address], United HospitalKsgeGK[address] Louie Sadler Notes/Report: NON-FASTING; NON-FASTING; NON-FASTING; NON-FASTING; NON-FAST PHENYTOIN 11.8 10.0-20.0 mg/L REASON FOR VISIT Cardiology F/U on levels Medications Medication SIG (Take, Route, Frequency, Duration) Notes Start Date End Date Status Promethazine HCl 25 MG 1 tab(s) orally every 6 hours; Duration: 5 days 05/13/2024 Active Estradiol 0.1 MG/GM as directed intravaginally M/W?F; Duration: 30 days 06/09/2024 Active TEGretol 200 MG 2 tabs orally twice daily; Duration: 90 days Active Losartan Potassium 25 MG 1 tab(s) orally once a day; Duration: 90 days Active Dilantin 100 MG 1 cap in the morning and 2 caps at night orally as directed; Duration: 90 days Active Propranolol HCl 20 MG 1 tab(s) orally 2 times a day; Duration: 90 days In morning and early afternoon 02/25/2024 Active Isosorbide Mononitrate 30 MG 1 tablet in the morning Orally Once a day Active Vital Signs Temperature 98.2 degrees Fahrenheit 10/10/19 25 Blood pressure systolic 125 mm Hg 10/10/19 25 Blood pressure diastolic 90 mm Hg 025 Heart Rate 72 /min 10/09/2024 Height 65 in 10/09/2024 Weight 169 lbs 10/09/2024 BMI 28.12 kg/m2 10/09/2024 Encounters Encounter Location Date Provider Diagnosis [address] [address] 10/09/2024 Nikhil Leon Seizures R56.9 and Palpitations R00.2 Assessments Encounter Date Diagnosis (ICD Code) Assessment Notes Treatment Notes Treatment Clinical Notes Section Notes 10/09/2024 Seizures (ICD-10 - R56.9) Patient is been seizure-free, she does describe symptoms of Dilantin toxicity, but will get levels now that she is back on a stable dose and off diltiazem. Currently her blood pressure is 126 systolic and her pulse rate is 70 and regular on my exam. On low-dose propranolol. Continue wearing monitor and follow-up with cardiology as scheduled. 10/09/2024 Palpitations (ICD-10 - R00.2) Check electrolytes, phosphorus and TSH given palpitation history Plan Of Treatment Treatment Notes Assessment Notes Seizures Patient is been seizure-free, she does describe symptoms of Dilantin toxicity, but will get levels now that she is back on a stable dose and off diltiazem. Currently her blood pressure is 126 systolic and her pulse rate is 70 and regular on my exam. On low-dose propranolol. Continue wearing monitor and follow-up with cardiology as scheduled. Palpitations Check electrolytes, phosphorus and TSH given palpitation history Next Appt Details Follow Up: prn, Reason: Provider Name:Nikhil Leon, 12/29/2024 09:00:00 AM, [address] [facility] [address], [place], [address], Progress Notes * Hazel ABDI SDOB:1950 (73 yo F)Acc No.[id number]:10/09/2024 Progress Notes Patient: Hazel GRANADOS Provider: Kane Leon MD :1950 A ge:73 Y S ex:Female Date:10/09/2024 Address:[address] [place] [address] [place], [place] [id number] Subjective: * Chief Complaints: * 1 . Cardiology F/U on levels. * HPI: g en: Patient is here to discuss her recent workup with cardiology. She follows with cardiology clinic at [facility] for known disease and ongoing palpitations. She had some ongoing chest pain, there was a lot of discussion about how to work this up, had a mildly abnormal stress test with 3 times daily issues and was finally persuaded to do a left heart cath last week. This showed nonflow limiting coronary disease and medical management was recommended. She was placed on diltiazem for palpitation issues and has a 14-day event monitor. Diltiazem made her feel horrible. She thinks it caused an increase in her Dilantin levels and she had ataxia, weakness and lots of dizziness symptoms. She stopped it about 4 days ago and feels much better. Her clinical assistant wonders about her current antiepileptic levels. She feels back to normal and thinks that her blood pressure just goes up and down. . * Medical History: M igraine headache, Seizures, Heart murmur, Rheumatic fever, HTN, Eft elbow hairliine fx, Colonoscopy February 2016 with Tubular adenoma, mild osteoporosis on DEXA scanning September 2017, Normal mammogram 2/20 and normal after additional views 07/23 - Repeat additional views also normal 02/22- and normal 03/25, Chest pain-heart cath August 2024 with nonflow limiting CAD. * Surgical History: r otator cuff (rt) , cholecystectomy , partial hysterectomy , colonoscopy , Right Total Knee Replacement 01/09/2023. * Hospitalization/Major Diagno stic Procedure: s urgeries , pneumonia , seizures , [facility]- Dilatin level elevated 10/2018, [facility]-Total Knee Replacement 12/2022. * Family History: F [...] active: no. Travel outside [place]: no. 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 * Medications: T aking Isosorbide Mononitrate 30 MG Tablet Extended Release 24 Hour 1 tablet in the morning Orally Once a day , Taking Dilantin 100 MG Capsule 1 cap in the morning and 2 caps at night orally as directed , Taking TEGretol 200 MG Tablet 2 tabs orally twice daily , Taking Estradiol 0.1 MG/GM Cream as directed intravaginally M/W?F , Taking Promethazine HCl 25 MG Tablet 1 tab(s) orally every 6 hours , Taking Losartan Potassium 25 MG Tablet 1 tab(s) orally once a day , Taking Propranolol HCl 20 MG Tablet 1 tab(s) orally 2 times a day , Notes to Pharmacist: In morning and early afternoon, Discontinued Cyclobenzaprine HCl 10 MG Tablet 1 tab(s) orally 3 times a day , Discontinued Procto-Med HC 2.5 % Cream 1 sage applied topically 3 times a day , Discontinued Triamcinolone Acetonide 0.5 % Ointment 1 sage applied topically 2 times a day , Medication List reviewed and reconciled with the patient * Allergies: V ISTARIL, SULFA, Imitrex, PROzac, Iodine, LIQUID TYLENOL, Augmentin: itching, PHENobarbital. Objective: * Vitals: Zeina wagner: dw, Pain: 0, Temp: 98.2, RR: 18, HR: 72, BP: 125/90, Ht: 65, Wt: 169, BMI:28.12. * Examination: G eneral Examination: General P leasant and Cooperative, NAD on RA,. Heart: R egular Rate and Rhythm, no murmur, rubs or gallops. HEENT: p harynx and tonsils normal, TM's normal. Lungs: L CTAB, No wheezes, crackles or rhonchi, Good air movement,. Abdomen: S oft, NTND, BSNA, No organomegaly or peritoneal signs.. Assessment: * Assessment: 1. S eizures - R56.9 (Primary) 2 . P alpitations - R00.2 Plan: * Treatment: Value Reference Range T 3 UPTAKE 32 22-35 - % * T 4 (THYROXINE), TOTAL 4.8 L 5.1-11.9 - mcg/dL * F REE T4 INDEX (T7) 1.5 1.4-3.8 - * T SH 1.88 0.40-4.50 - mIU/L * Brittany Kemp N 10/14/19 03:25:35 PM EDT > pt informedThis lab was reviewed by Brittany Kemp on 10/13/2024 at 15:25 PM EDT ?LAB: COMPREHENSIVE METABOLIC PANEL (99552)* Value Reference Range G LUCOSE 109 H 65-99 - mg/dL * U ANNABELLE NITROGEN (BUN) 22 7-25 - mg/dL * C REATININE 0.78 0.60-1.00 - mg/dL * B UN/CREATININE RATIO SEE NOTE: 6 - (calc) * S ODIUM 139 135-146 - mmol/L * P OTASSIUM 4.5 3.5-5.3 - mmol/L * C HLORIDE 108 98-110 - mmol/L * C ARBON DIOXIDE 23 20-32 - mmol/L * C ALCIUM 9.1 8.6-10.4 - mg/dL * P ROTEIN, TOTAL 6.7 6.1-8.1 - g/dL * A LBUMIN 4.5 3.6-5.1 - g/dL * G LOBULIN 2.2 1.9-3.7 - g/dL (calc ) * A LBUMIN/GLOBULIN RATIO 2.0 1.0-2.5 - (calc) * B ILIRUBIN, TOTAL 0.4 0.2-1.2 - mg/dL * A LKALINE PHOSPHATASE 125 37-153 - U/L * A ST 17 10-35 - U/L * A LT 15 6-29 - U/L * E GFR 80 > OR = 60 - mL/min/1 .73m2 * Brittany Kemp 10/14/19 03:25:35 PM EDT > pt informedThis lab was reviewed by Brittany Kemp on 10/13/2024 at 15:25 PM EDT ?LAB: MAGNESIUM (622)* Value Reference Range M AGNESIUM 2.1 1.5-2.5 - mg/dL * Brittany Kemp 10/14/19 03:25:35 PM EDT > pt informedThis lab was reviewed by Brittany Kemp on 10/13/2024 at 15:25 PM EDT ?LAB: PHOSPHATE ( PHOSPHORUS) (718)* Value Reference Range P HOSPHATE ( PHOSPHORUS) 4.4 H 2.1-4.3 - mg/dL * Brittany Kemp 10/14/19 03:25:35 PM EDT > pt informedThis lab was reviewed by Brittany Kemp on 10/13/2024 at 15:25 PM EDT ?LAB: CBC (INCLUDES DIFF/PLT) (9824)* Value Reference Range W TAMY BLOOD CELL COUNT 6.1 3.8-10.8 - Thousan d/uL * R ED BLOOD CELL COUNT 4.71 3.80-5.10 - Million/ uL * H EMOGLOBIN 14.3 11.7-15.5 - g/dL * H EMATOCRIT 44.0 35.0-45.0 - % * M CV 93.4 80.0-100.0 - fL * M CH 30.4 27.0-33.0 - pg * M CHC 32.5 32.0-36.0 - g/dL * R DW 13.0 11.0-15.0 - % * P LATELET COUNT 214 140-400 - Thousand/u L * N EUTROPHILS 60.6 - % * A BSOLUTE NEUTROPHILS 3697 6720-7015 - cells/uL * L YMPHOCYTES 26.0 - % * A BSOLUTE LYMPHOCYTES [phone] - cells/uL * M ONOCYTES 7.5 - % * A BSOLUTE MONOCYTES 458 200-950 - cells/uL * E OSINOPHILS 4.6 - % * A BSOLUTE EOSINOPHILS 281 15-500 - cells/uL * B ASOPHILS 1.3 - % * A BSOLUTE BASOPHILS 79 0-200 - cells/uL * M PV 9.0 7.5-12.5 - fL * Brittany Kemp 10/14/19 03:25:35 PM EDT > pt informedThis lab was reviewed by Brittany Kemp on 10/13/2024 at 15:25 PM EDT ?LAB: CARBAMAZEPINE, TOTAL (329)* Value Reference Range C ARBAMAZEPINE, TOTAL 5.6 4.0-12.0 - mg/L * Brittany Kemp 10/14/19 03:25:35 PM EDT > pt informedThis lab was reviewed by Brittany Kemp on 10/13/2024 at 15:25 PM EDT ?LAB: PHENYTOIN (713)* Value Reference Range P HENYTOIN 11.8 10.0-20.0 - mg/L * Brittany Kemp 10/14/19 03:25:35 PM EDT > pt informedThis lab was reviewed by Brittany Kemp on 10/13/2024 at 15:25 PM EDT Notes: Patient is been seizure-free, she does describe symptoms of Dilantin toxicity, but will get levels now that she is back on a stable dose and off diltiazem. Currently her blood pressure is 126 systolic and her pulse rate is 70 and regular on my exam. On low-dose propranolol. Continue wearing monitor and follow-up with cardiology as scheduled.?? 2.?Palpitations?LAB: THYROID PANEL WITH TSH (7444)* Value Reference Range T 3 UPTAKE 32 22-35 - % * T 4 (THYROXINE), TOTAL 4.8 L 5.1-11.9 - mcg/dL * F REE T4 INDEX (T7) 1.5 1.4-3.8 - * T SH 1.88 0.40-4.50 - mIU/L * Brittany Kemp 10/14/19 03:25:35 PM EDT > pt informedThis lab was reviewed by Brittany Kemp on 10/13/2024 at 15:25 PM EDT ?LAB: COMPREHENSIVE METABOLIC PANEL (98344)* Value Reference Range G LUCOSE 109 H 65-99 - mg/dL * U ANNABELLE NITROGEN (BUN) 22 7-25 - mg/dL * C REATININE 0.78 0.60-1.00 - mg/dL * B UN/CREATININE RATIO SEE NOTE: 6-22 - (calc) * S ODIUM 139 135-146 - mmol/L * P OTASSIUM 4.5 3.5-5.3 - mmol/L * C HLORIDE 108 98-110 - mmol/L * C ARBON DIOXIDE 23 20-32 - mmol/L * C ALCIUM 9.1 8.6-10.4 - mg/dL * P ROTEIN, TOTAL 6.7 6.1-8.1 - g/dL * A LBUMIN 4.5 3.6-5.1 - g/dL * G LOBULIN 2.2 1.9-3.7 - g/dL (calc ) * A LBUMIN/GLOBULIN RATIO 2.0 1.0-2.5 - (calc) * B ILIRUBIN, TOTAL 0.4 0.2-1.2 - mg/dL * A LKALINE PHOSPHATASE 125 37-153 - U/L * A ST 17 10-35 - U/L * A LT 15 6-29 - U/L * E GFR 80 > OR = 60 - mL/min/1 .73m2 * Brittany Kemp 10/14/19 03:25:35 PM EDT > pt informedThis lab was reviewed by Brittany Kemp on 10/13/2024 at 15:25 PM EDT ?LAB: MAGNESIUM (622)* Value Reference Range M AGNESIUM 2.1 1.5-2.5 - mg/dL * Christopher Kemppj Pastrana 10/14/19 03:25:35 PM EDT > pt informedThis lab was reviewed by Brittany Kemp on 10/13/2024 at 15:25 PM EDT ?LAB: PHOSPHATE ( PHOSPHORUS) (718)* Value Reference Range P HOSPHATE ( PHOSPHORUS) 4.4 H 2.1-4.3 - mg/dL * Christopher Kemppj Pastrana 10/14/19 03:25:35 PM EDT > pt informedThis lab was reviewed by Brittany Kemp on 10/13/2024 at 15:25 PM EDT ?LAB: CBC (INCLUDES DIFF/PLT) (3926)* Value Reference Range W TAMY BLOOD CELL COUNT 6.1 3.8-10.8 - Thousan d/uL * R ED BLOOD CELL COUNT 4.71 3.80-5.10 - Million/ uL * H EMOGLOBIN 14.3 11.7-15.5 - g/dL * H EMATOCRIT 44.0 35.0-45.0 - % * M CV 93.4 80.0-100.0 - fL * M CH 30.4 27.0-33.0 - pg * M CHC 32.5 32.0-36.0 - g/dL * R DW 13.0 11.0-15.0 - % * P LATELET COUNT 214 140-400 - Thousand/u L * N EUTROPHILS 60.6 - % * A BSOLUTE NEUTROPHILS 3697 4555-4838 - cells/uL * L YMPHOCYTES 26.0 - % * A BSOLUTE LYMPHOCYTES [phone] - cells/uL * M ONOCYTES 7.5 - % * A BSOLUTE MONOCYTES 458 200-950 - cells/uL * E OSINOPHILS 4.6 - % * A BSOLUTE EOSINOPHILS 281 15-500 - cells/uL * B ASOPHILS 1.3 - % * A BSOLUTE BASOPHILS 79 0-200 - cells/uL * M PV 9.0 7.5-12.5 - fL * Brittany Kemp N 10/14/19 03:25:35 PM EDT > pt informedThis lab was reviewed by Brittany Justo on 10/13/2024 at 15:25 PM EDT Notes: Check electrolytes, phosphorus and TSH given palpitation history?? * Follow Up: p rn * * Sign off status: Completed true * Provider: Kane Leon MD Date: 0 10/09/2024 Generated for Anali byers/Neno/eTransmitting on: 0 11/06/2024 01:52 PM EDT History and Physical Notes * HPI (History of Present Illness) Category Sub-Category Detail Notes Category Not es gen Patient is here to discuss her recent workup with cardiology. She follows with cardiology clinic at [facility] for known disease and ongoing palpitations. She had some ongoing chest pain, there was a lot of discussion about how to work this up, had a mildly abnormal stress test with 3 times daily issues and was finally persuaded to do a left heart cath last week. This showed nonflow limiting coronary disease and medical management was recommended. She was placed on diltiazem for palpitation issues and has a 14-day event monitor. Diltiazem made her feel horrible. She thinks it caused an increase in her Dilantin levels and she had ataxia, weakness and lots of dizziness symptoms. She stopped it about 4 days ago and feels much better. Her clinical assistant wonders about her current antiepileptic levels. She feels back to normal and thinks that her blood pressure just goes up and down. Examination Category Sub-Category Detail Notes Category Not es General Examination HEENT: pharynx and tonsils normal, TM's normal Heart: Regular Rate and Rhy thm, no murmur, rubs or gallops Lungs: LCTAB, No wheezes, c rackles or rhonchi, Good air movement, Abdomen: Soft, NTND, BSNA, No organomegaly or peritoneal signs. General Pleasant and Coopera tive, NAD on RA,
[2024-11-06 13:47] VITALS: BP 159/89; PULSE 84; RESP 14; TEMP 36.8; O2SAT 96; BMI 28.8
[2024-11-06 13:52] VITALS: BP 159/89; PULSE 84; RESP 14; TEMP 36.8; O2SAT 96
--- OUTSIDE RECORDS SUMMARY | 2024-11-06 13:52 | XMS_ITS | Patient Health Record ---
Author Organization [facility] Address [address] [facility] [address] [place] [address] Care Team Providers Care Host/Hostess Name Role Phone Nikhil Leon Primary Care [...] Active Results Component Value Reference Range Notes CBC (INCLUDES DIFF/PLT) (639 9) Reviewed date:03/06/2024 12:33:40 PM Interpretation: Performing Lab:[facility], [facility] Louie Sadler Notes/Report: WHITE BLOOD CELL COUNT [...] MPV 9.9 7.5-12.5 fL ABSOLUTE NEUTROPHILS 3271 [phone] cells/uL ABSOLUTE LYMPHOCYTES [phone] cells/uL ABSOLUTE MONOCYTES 390 200-950 cells/uL ABSOLUTE EOSINOPHILS 31 15-500 cells/uL ABSOLUTE BASOPHILS 57 0-200 cells/uL NEUTROPHILS 62.9 LYMPHOCYTES 27.9 MONOCYTES 7.5 EOSINOPHILS 0.6 BASOPHILS 1.1 MAGNESIUM (622) Reviewed date:03/06/2024 12:33:40 PM Interpretation: Performing Lab:[facility] [place] [employer], .Club DomainsFdfkOQ[address] Louie Sadler Notes/Report: MAGNESIUM 2.0 1.5-2.5 mg/dL COMPREHENSIVE METABOLIC PANE L (55629) Reviewed date:03/06/2024 12:33:40 PM Interpretation: Performing Lab:[facility]13[address] [employer], .Club DomainsTzkrFD[address] Louie Sadler Notes/Report: GLUCOSE 93 65-99 mg/dL [...] Reviewed date:03/06/2024 12:33:40 PM Interpretation: Performing Lab:[facility] Dnym7915 [address] [employer], [place] PdnfMV[address] Louie Sadler Notes/Report: CHOLESTEROL, TOTAL 177 <200 [...] of LDL-C. Clement SS et al. MARIE. 2013;310(83): 9011-6390 ([email or web address]) CHOL/HDLC RATIO 2.1 <5.0 (calc) NON HDL CHOLESTEROL 93 <130 mg/dL (calc) For patients with diabetes plus 1 major ASCVD risk factor, treating to a non-HDL-C goal of <100 mg/dL (LDL-C of <70 mg/dL) is considered a therapeutic option. THYROID PANEL WITH TSH (7444 ) Reviewed date:03/06/2024 12:33:39 PM Interpretation: Performing Lab:[facility] Kqns96[address] [employer], [place] YnyjZA[address] Louie Sadler Notes/Report: T3 UPTAKE 31 22-35 % T4 (THYROXINE), TOTAL 4.0 5.1-11.9 mcg/dL FREE T4 INDEX (T7) 1.2 1.4-3.8 TSH 2.06 0.40-4.50 mIU/L Mammogram : Bilateral Reviewed date:03/19/2024 09:12:49 PM Interpretation: Performing Lab: Notes/Report: THYROID PANEL WITH TSH (7444 ) Reviewed date:10/13/2024 03:25:47 PM Interpretation: Performing Lab:[facility] Jfvv3299 [employer] [employer], [place] DzqpQH[address] Louie Sadler Notes/Report: NON-FASTING; NON-FASTING; NON-FASTING; NON-FASTING; NON-FAST T3 UPTAKE 32 22-35 % T4 (THYROXINE), TOTAL 4.8 5.1-11.9 mcg/dL FREE T4 INDEX (T7) 1.5 1.4-3.8 TSH 1.88 0.40-4.50 mIU/L CARBAMAZEPINE, TOTAL (329) Reviewed date:09/02/2024 02:14:44 PM Interpretation: Performing Lab:[facility] [address], [place] OyobIQ[address] Louie Sadler Notes/Report: NON-FASTING; NON-FASTING; NON-FASTING; NON-FASTING CARBAMAZEPINE, TOTAL 6.6 4.0-12.0 mg/L CARBAMAZEPINE, TOTAL (329) Reviewed date:10/13/2024 03:25:48 PM Interpretation: Performing Lab:[facility], [place] EswjCA[address] Louie Sadler Notes/Report: NON-FASTING; NON-FASTING; NON-FASTING; NON-FASTING; NON-FAST CARBAMAZEPINE, TOTAL 5.6 4.0-12.0 mg/L PHENYTOIN (713) Reviewed date:10/13/2024 03:25:48 PM Interpretation: Performing Lab:[facility] [address], [place] AvxkNB[address] Louie Sadler Notes/Report: NON-FASTING; NON-FASTING; NON-FASTING; NON-FASTING; NON-FAST PHENYTOIN 11.8 10.0-20.0 mg/L PHENYTOIN (713) Reviewed date:09/02/2024 02:14:44 PM Interpretation: Performing Lab:[facility] [address], [place] RgwiCY[address] Louie Sadler Notes/Report: NON-FASTING; NON-FASTING; NON-FASTING; NON-FASTING PHENYTOIN 17.2 10.0-20.0 mg/L COMPREHENSIVE METABOLIC PANE L (65269) Reviewed date:09/02/2024 02:14:44 PM Interpretation: Performing Lab:[facility] [address], [place] AikvPN[address] Louie Sadler Notes/Report: NON-FASTING; NON-FASTING; NON-FASTING; NON-FASTING [...] 15 10-35 U/L ALT 14 6-29 U/L COMPREHENSIVE METABOLIC PANE L (48497) Reviewed date:10/13/2024 03:25:48 PM Interpretation: Performing Lab:[facility], [facility], [facility] CenterRevvBZ[address] Louie Sadler Notes/Report: NON-FASTING; NON-FASTING; NON-FASTING; NON-FASTING; [...] Reviewed date:10/13/2024 03:25:48 PM Interpretation: Performing Lab:[facility] [employer], SecretAfdzZG[address] Louie Sadler Notes/Report: NON-FASTING; NON-FASTING; NON-FASTING; NON-FASTING; NON-FAST MAGNESIUM 2.1 1.5-2.5 mg/dL PHOSPHATE ( PHOSPHORUS) (7 18) Reviewed date:10/13/2024 03:25:48 PM Interpretation: Performing Lab:OT[facility] [employer]le[address], [facility] CenterAqwsYL[address] Louie Sadler Notes/Report: NON-FASTING; NON-FASTING; NON-FASTING; NON-FASTING; NON-FAST PHOSPHATE ( PHOSPHORUS) 4.4 2.1-4.3 mg/dL CBC (INCLUDES DIFF/PLT) (639 9) Reviewed date:10/13/2024 03:25:48 PM Interpretation: Performing Lab:[facility], [place] VfoyXT[address] Louie Sadler Notes/Report: NON-FASTING; NON-FASTING; NON-FASTING; NON-FASTING; [...] MPV 9.0 7.5-12.5 fL ABSOLUTE NEUTROPHILS 3697 [phone] cells/uL ABSOLUTE LYMPHOCYTES [phone] cells/uL ABSOLUTE MONOCYTES 458 200-950 cells/uL ABSOLUTE EOSINOPHILS 281 15-500 cells/uL ABSOLUTE BASOPHILS 79 0-200 cells/uL NEUTROPHILS 60.6 LYMPHOCYTES 26.0 MONOCYTES 7.5 EOSINOPHILS 4.6 BASOPHILS 1.3 CBC (INCLUDES DIFF/PLT) (639 9) Reviewed date:09/02/2024 02:14:44 PM Interpretation: Performing Lab:CB, [facility] [address], [facility] HospitalSczpPN[address] Louie Sadler Notes/Report: NON-FASTING; NON-FASTING; NON-FASTING; NON-FASTING [...] MPV 10.4 7.5-12.5 fL ABSOLUTE NEUTROPHILS [phone] cells/uL ABSOLUTE LYMPHOCYTES 4271 274-0226 cells/uL ABSOLUTE MONOCYTES 431 200-950 cells/uL ABSOLUTE EOSINOPHILS 0 15-500 cells/uL ABSOLUTE BASOPHILS 62 0-200 cells/uL NEUTROPHILS 63.3 LYMPHOCYTES 27.9 MONOCYTES 7.7 EOSINOPHILS 0.0 BASOPHILS 1.1 Urinalysis Reviewed date:06/09/2024 11:09:47 AM Interpretation: Performing Lab: Notes/Report: Color/Clarity yellow Leuk neg Nitrite neg Urobili 0.2 Protein trace pH 6.0 Blood neg Sp. Gr. 1.025 Ketone neg Bili small Glucose neg X ray : Hand, Right Reviewed date:01/14/2024 12:33:07 PM Interpretation: Performing Lab: Notes/Report: PHENYTOIN (713) Reviewed date:03/07/2024 09:48:21 AM Interpretation: Performing Lab:[facility] [address], [place] TbieHV[address] Louie Sadler Notes/Report: PHENYTOIN 13.1 10.0-20.0 mg/L Your request to have a duplicate copy faxed has been acknowledged. Queued to: [id number] CARBAMAZEPINE, TOTAL (329) Reviewed date:03/07/2024 09:48:21 AM Interpretation: Performing Lab:[facility], [facility] [address], [place] LkbfJZ[address] Louie Sadler Notes/Report: CARBAMAZEPINE, TOTAL 6.1 4.0-12.0 mg/L VITAMIN B12 (927) Reviewed date:03/06/2024 12:33:40 PM Interpretation: Performing Lab:[facility] [address], [place] PursZI[address] Louie Sadler Notes/Report: VITAMIN B12 646 194-4899 pg/mL Please Note: Although the reference range [...] Reviewed date:03/06/2024 12:33:40 PM Interpretation: Performing Lab:[facility], [facility] [address], [place] SneqTO[address] Louie Sadler Notes/Report: FOLATE, SERUM 10.7 Reference Range Low: <3.4 Borderline: 3.4-5.4 Normal: >5.4 IRON, TIBC AND FERRITIN PANE L (5616) Reviewed date:03/06/2024 12:33:39 PM Interpretation: Performing Lab:[facility], [facility] [address], [place] ShybHL[address] Louiediane Sadler Notes/Report: IRON, TOTAL 182 45-160 mcg/dL IRON BINDING CAPACITY 330 250-450 mcg/dL (essence c) % SATURATION 55 16-45 % (calc) FERRITIN 84 16-288 ng/mL Medications Medication SIG (Take, Route, Frequency, Duration) Notes Start Date End Date Status Dilantin 100 MG 1 cap in the morning and 2 caps at night orally as directed; Duration: 90 days Active Promethazine HCl 25 MG 1 tab(s) orally every 6 hours; Duration: 5 days 05/13/2024 Active Estradiol 0.1 MG/GM as directed intravaginally M/W?F; Duration: 30 days 06/09/2024 Active TEGretol 200 MG 2 tabs orally twice daily; Duration: 90 days Active Propranolol HCl 20 MG 1 tab(s) orally 2 times a day; Duration: 90 days In morning and early afternoon 02/25/2024 Active Losartan Potassium 25 MG 1 tab(s) orally once a day; Duration: 90 days Active Isosorbide Mononitrate 30 MG 1 tablet in the morning Orally Once a day Active Immunizations Vaccine Route Administration Date Status Comme nts SHINGRIX IM Intramuscular 02/25/2024 Administered Prevnar PCV-20 (Pneumococcal conjugate 20) IM Intramuscular 03/29/2022 Administered Prevnar PCV-13 (Pneumococcal conjugate 13) IM Intramuscular 12/30/2018 Administered Pneumovax 23 IM Intramuscular 10/26/2017 Administered Hep A Adult 2 Dose IM Intramuscular 06/08/2018 Administere d Covid Moderna Unknown 04/14/2021 Administered Covid Moderna Unknown 05/12/2021 Administered Adacel (Tdap) IM Intramuscular 02/06/2015 Administered Problems Problem Type SNOMED Code ICD Code Onset Dates Problem Status W/U Status Risk Notes Problem Primary insomnia (6826643) Primary insomnia (F51.01) Active confirmed Problem Essential tremor (177068771) Essential tremor (G25.0) Active confirmed Problem Xanthoma of right eyelid (disorder) (650838793476239) Xanthelasma of right eye, 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) Active confirmed Problem Xanthelasma of left eye, unspecified eyelid (H02.66) Active confirmed Problem History of musculoskeletal operation (325851429) Aftercare following joint replacement surgery (Z47.1) Active confirmed Problem Seizure disorder (431751214) Seizure disorder (G40.909) Active confirmed Problem Gastroesophageal reflux disease (100544657) GERD (gastroesophag eal reflux disease) (K21.9) Active confirmed Problem Hyperlipidemia (22528373) Hyperlipemia, idiopathic familial (E78.5) Active confirmed Problem Essential hypertension (07703326) Hypertension, essential (I10) Active confirmed Problem Seasonal allergy (547262106) Seasonal allergies (J30.2) Active confirmed Problem Tubular adenoma of colon (213786875) Tubular adenoma of colon (D12.6) Active confirmed Problem Mammography abnormal (472356437) Abnormal mammogram of right breast (R92.8) Active confirmed Problem Tachycardia (5305095) Tachycardia (R00.0) Active confirmed Problem Seizure (03550551) Seizures (R56.9) Active confirmed Problem Abnormal mammogram (037138832) Abnormal mammogram (R92.8) Active confirmed Problem Chronic serous otitis media (59814326) Bilateral chronic serous otitis media (H65.23) Active confirmed Problem Insomnia (296313823) Insomnia, unspecified type (G47.00) Active confirmed Problem Sciatica (88902337) Acute left-sided back pain with sciatica (M54.42) Active confirmed Problem Adult health examination (897717939) Healthcare maintenance (Z00.00) Active confirmed Problem Artificial knee joint present (433843499765) Status post right knee replacement (Z96.651) Active confirmed Problem Artificial knee joint present (523616334891) History of knee replacement procedure of right knee (Z96.651) Active confirmed Vital Signs Heart Rate 72 /min 10/09/2024 Temperature 98.2 degrees Fahrenheit 10/09/2024 Blood pressure diastolic 90 mm Hg 10/09/2024 Height 65 in 10/09/2024 Blood pressure systolic 125 mm Hg 10/09/2024 Weight 169 lbs 10/09/2024 BMI 28.12 kg/m2 10/09/2024 Encounters Encounter Location Date Provider Diagnosis [facility] [address] [place] [address] 03/05/2024 Nikhil Leon [facility] [address] [place], [place] [address] 07/05/2024 Provider Migration Hemorrhoids, unspecified hemorrhoid type K64.9 and Urethritis N34.2 [facility] [address] [place] [address] 11/21/2023 Nikhil Besson Hypertension, essential I10 ; Insomnia, unspecified type G47.00 and Tick bite, unspecified site, initial encounter W57.XXXA [facility] [address] [place] [address] 01/11/2024 Nikhil Besson Acute bronchitis, unspecified organism J20.9 and Right hand pain M79.641 [facility] [address] [place] [address] 02/25/2024 Nikhil Besson Seizures R56.9 ; Hyperlipemia, idiopathic familial E78.5 ; Hypertension, essential I10 ; Tremor R25.1 ; H/O screening mammography Z92.89 ; Encounter for immunization Z23 and Arthritis M19.90 [facility] [address] [place] [address] 05/05/2024 Nikhil Besson Seizures R56.9 ; Hypertension, essential I10 ; Mechanical low back pain M54.59 ; Malodorous urine R82.90 and Routine medical exam Z00.00 [facility] [address] [place] [address] 06/09/2024 Nikhil Besson Hematuria R31.9 ; Hemorrhoids, unspecified hemorrhoid type K64.9 and Urethritis N34.2 [facility] [address] [place] [address] 08/27/2024 Nikhil Besson Seizures R56.9 ; Hypertension, essential I10 ; Xerosis of skin L85.3 and Rectal bleed K62.5 [facility] [address] [place] [address] 10/09/2024 Nikhil Besson Seizures R56.9 and Palpitations R00.2 [facility] [address] [place] [address] 01/07/2024 Nikhil Besson [facility] [address] [place], [place] [address] 02/13/2024 Nikhil Besson [facility] [address] [address] 02/25/2024 Nikhil Besson Seizures R56.9 [facility] [address] [address] 04/08/2024 Nikhil Besson [facility] [address] [address] 05/13/2024 Nikhil Besson [facility] [address] [address] 05/26/2024 Nikhil Besson Seizures R56.9 [facility] [address] [address] 08/05/2024 Nikhil Besson Tremor R25.1 [facility] [address] [address] 08/28/2024 Nikhil Besson Assessments Encounter Date Diagnosis (ICD Code) Assessment Notes Treatment Notes Treatment Clinical Notes Section Notes 01/11/2024 Acute bronchitis, unspecified organism (ICD-10 - J20.9) Discussed the etiology and expected course of bronchitis. Discussed the rationale for antibiotics and steroid use and the importance of completeing the prescription as prescribed. Discussed supportive care. Discussed the signs and symptoms of worsening infection/respira tory distress that may indicate need for reassement in clinic/ED. 01/11/2024 Right hand pain (ICD-10 - M79.641) Given lack of injury mechanism and unusual exam we will check x-ray. I will review x-ray results personally 02/25/2024 Hyperlipemia, idiopathic familial (ICD-10 - E78.5) Patient has hyperlipidema and hypertension. She is on losartan with no side effects. Will check lipid levels today, and adjust therapy if needed. 02/25/2024 Seizures (ICD-10 - R56.9) Patient well controlled on dilanten and tegretol. Will check a carbamazepine level and phenytoin level and adjust therapy if needed. 02/25/2024 Seizures (ICD-10 - R56.9) 05/05/2024 Hypertension, essential (ICD-10 - I10) Blood pressure normal. No change in plan 05/05/2024 Seizures (ICD-10 - R56.9) No recent seizures. Antiepileptic drug levels were reviewed in March. No changes in dose at that point. I will see her in August for redo labs 05/26/2024 Seizures (ICD-10 - R56.9) 06/09/2024 Hematuria (ICD-10 - R31.9) UA normal. Urethral irritation on exam. Likely some component of genitourinary syndrome of menopause. will send estrase cream to be used 3x weekly. 07/05/2024 Hemorrhoids, unspecified hemorrhoid type (ICD-10 - K64.9) 08/05/2024 Tremor (ICD-10 - R25.1) 08/27/2024 Hypertension, essential (ICD-10 - I10) Excellent control, will refill medication and check renal function 08/27/2024 Seizures (ICD-10 - R56.9) Overall doing well in regards to seizure control. No problems with medication toleration or efficacy. Will check levels today. Check CMP and CBC because of possible toxic medication issues 10/09/2024 Palpitations (ICD-10 - R00.2) Check electrolytes, phosphorus and TSH given palpitation history 10/09/2024 Seizures (ICD-10 - R56.9) Patient is been seizure-free, she does describe symptoms of Dilantin toxicity, but will get levels now that she is back on a stable dose and off diltiazem. Currently her blood pressure is 126 systolic and her pulse rate is 70 and regular on my exam. On low-dose propranolol. Continue wearing monitor and follow-up with cardiology as scheduled. 11/21/2023 Hypertension, essential (ICD-10 - I10) Patient encouraged to beign Losartan. No changes to treatment at this time. 11/21/2023 Insomnia, unspecified type (ICD-10 - G47.00) Patient encourgaed to start Mirtazipine for Insomnia. No changes to treatment at this time. 06/09/2024 Hemorrhoids, unspecified hemorrhoid type (ICD-10 - K64.9) Has had hemorrhoids for years, likely bleeding intermittently. Will send hemorrhoid cream. 08/27/2024 Xerosis of skin (ICD-10 - L85.3) Has been using OTC lotions. Recommended CeraVe or Eucerin lotion. 07/05/2024 Urethritis (ICD-10 - N34.2) 11/21/2023 Tick bite, unspecified site, initial encounter (ICD-10 - W57.XXXA) Patient presents with two tick bites. One on left medial breast and on right medial scapula border. Bites do not look to be inflamed or infected. No rash present. Patient denies fever or chills. No treatment necessary at this time. 06/09/2024 Urethritis (ICD-10 - N34.2) 05/05/2024 Mechanical low [...] back in 3 months at next appt. 02/25/2024 Tremor (ICD-10 - R25.1) Patient complains [...] fax order to get that set up. 02/25/2024 Encounter for immunization (ICD-10 - Z23) [...] PANEL 07/15/2015 H-LIPID PANEL 11/08/2009 H-PHENYTOIN (DILANTIN) 10/07/2014 H-PHENYTOIN (DILANTIN) 07/15/2010 H-CARBAMAZEPINE (TEGRETOL) 10/07/2014 C-URINE CULTURE 06/21/2018 VENIPUNCT, ROUTINE* 04/06/2015 M-Complete Blood Count Auto Diff 021 M-Comprehensive Metabolic Panel 02/04/20 21 M-Lipid Panel 02/03/2021 M-Valproic Acid Total 02/03/2021 Next Appt Details Provider Name:Nikhil Nelson Omayrabrittany, 12/29/2024 09:00:00 AM, [address], [address], [place], [address], Insurance Providers Payer Name Payer Address Payer Phone Subscriber Number Group Number Insured Name Patient Relationship to Insured Coverage Start Date Coverage End Date MEDIC[place] [address] [id number] Hazel Abdi Self - patient is the insured [employer] [facility] [employer] [address] [place] [address] [id number] Hazel Abdi Self - patient is the insured [employer] [address] [place] [address] [address] [place] [address] ACL Hazel Abdi Self - patient is [...] views also normal 02/22- and normal 03/25 Chest pain-heart cath August 2024 with non flow limiting CAD Surgical History Surgery Date(Month/Year) rotator cuff (rt) cholecystectomy partial hysterectomy colonoscopy Right Total Knee Replacement 01/09/2023 Hospitalization History Reason Date(Month/Year) [facility]-Total K[facility] Replacement 12/2022 [facility]- Dilatin level elevated 10/2018 seizures pneumonia surgeries
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
[2024-11-06] MEDS: BACITRACIN ZINC OINT 30GM TUBE TP (14:11)
--- NOTE | 2024-11-06 14:22 | PC.NURSE ---
Abrasions to the back of bilateral hands cleaned and dressed per Dr. Palma's order. Patient tolerated well.
[2024-11-06 14:30] VITALS: BP 124/86; PULSE 80; O2SAT 97
[2024-11-06] MEDS: TET/DIPHTH/PERT-ADULT 0.5ML SYRINGE 0.5 ML IM (14:44)
--- NOTE | 2024-11-06 15:01 | HMH.EDGENADL ---
Discharge Plan Disposition Patient Disposition: Home, Self-Care Condition: Good Prescriptions Prescriptions: No Action furosemide [Lasix] 20 mg tablet 20 mg PO DAILY PRN (Reason: edema) Qty: 30 5RF bisoprolol fumarate 5 mg tablet 5 mg PO DAILY Qty: 60 6RF Rx Instructions: Alternate daily between 0.5tab and 1 tab losartan 25 mg tablet 25 mg PO DAILY aspirin [Adult Low Dose Aspirin] 81 mg tablet,delayed release (DR/EC) 81 mg PO DAILY Qty: 30 5RF diphenhydramine HCl [Benadryl Allergy] 25 mg tablet 25 mg PO HS Qty: 1 0RF phenytoin sodium extended 100 mg capsule 100 mg PO TID cyclobenzaprine 10 mg tablet 10 mg PO DAILY PRN (Reason: Muscle Spasm) isosorbide mononitrate 30 mg tablet extended release 24 hr 30 mg PO DAILY Qty: 90 3RF carbamazepine [Tegretol] 200 mg tablet 400 mg PO BID Referrals Follow up/Referrals: Nikhil Leon MD [Primary Care Provider, Internal Medicine] - See instructions Activity Restrictions/Add. Instructions Additional Instructions/Restrictions: Please apply bacitracin cream to the skin tears on your hands once daily. Keep your hands wrapped with gauze. You can wash with warm soap and water but do not submerge your hands under water, such as in a bath, diop, or pond. If you have any new or worsening symptoms, including streaking redness, excessive bleeding, or pus drainage please return. Clinical Impressions Clinical Impression: Skin tear of hand without complication, Contusion of hand Instructions Patient Instructions: DI for Contusion Print Language Print Language: Faroese Discharge ED Provider: Jeffery Palma Adult HPI General Chief complaint: Wound/Laceration Stated complaint: cut on both hands. 01:00pm Time Seen by Provider: 11/06/24 13:42 Mode of Arrival: Ambulatory Source of Information: Patient Description of Symptoms (Recalled from ER Triage Doc. by RN): pt presents to the ED with skin tears to her right and left hands. pt reports that she was getting things out of the back of her car when richard trunk came down on both of her hands. pt still has full range of motion to both hands. pt's last tetanus shot was in 2014. Denies being on blood thinners. History of Present Illness HPI narrative: This is a 73-year-old female patient, with past medical history of hyperlipidemia, hypertension, seizure disorder, and remote rheumatic heart disease, who is presenting to the emergency department today for evaluation of injuries to her hands. Patient states that she was closing the trunk on her car and the door of the trunk smashed both of her hands. She suffered skin tears to the dorsal aspect of her hands bilaterally and she is having some pain of her hands but she is not having any difficulty with movement of her fingers or her wrist. She is not experiencing any numbness or tingling and she has not noticed any overt deformity aside from the skin. She did not fall to the ground, hit her head, or lose consciousness. She states that she did apply direct pressure to these wounds prior to arrival and they were hemostatic by the time she arrived to the emergency department. She has not had her tetanus shot since 2014. Related Data Home Medications ?Medication ?Instructions ?Recorded ?Confirmed carbamazepine 200 mg tablet 400 mg PO BID Seizures 10/22/19 10/06/24 (Tegretol) phenytoin sodium extended 100 mg 100 mg PO TID Seizures 10/13/22 10/06/24 capsule losartan 25 mg tablet 25 mg PO DAILY 03/05/24 10/06/24 cyclobenzaprine 10 mg tablet 10 mg PO DAILY PRN Muscle Spasm 06/03/24 10/06/24 Previous Rx's ?Medication ?Instructions ?Recorded bisoprolol fumarate 5 mg tablet 5 mg PO DAILY #60 tabs 09/04/23 furosemide 20 mg tablet (Lasix) 20 mg PO DAILY PRN edema #30 tabs 09/04/23 aspirin 81 mg tablet,delayed 81 mg PO DAILY #30 tabs 09/01/24 release (Adult Low Dose Aspirin) diphenhydramine HCl 25 mg tablet 25 mg PO HS #1 tab 09/17/24 (Benadryl Allergy) isosorbide mononitrate 30 mg 30 mg PO DAILY #90 tabs 10/06/24 tablet,extended release 24 hr Allergies Allergy/AdvReac Type Severity Reaction Status Date / Time phenobarbital (PHENOBARBITAL) Allergy Severe COMA Verified 10/06/24 09:14 hydroxyzine (From VISTARIL) Allergy Unknown NA-NAUSEA/V Verified 10/06/24 09:14 OMITING Iodinated Contrast Media Allergy Unknown UNABLE Verified 10/06/24 09:14 (IODINATED CONTRAST MEDIA - TALK,ETC IV DYE) sumatriptan (From IMITREX) Allergy Unknown LIPS Verified 10/06/24 09:14 SWELLING verapamil (VERAPAMIL) Allergy Unknown VERTIGO Verified 10/06/24 09:14 red dye Allergy Rash Verified 10/06/24 09:14 [facility] Disclaimer: The information contained in this section may have been updated after the patient was seen, as this information can be updated by other users. Medical History Allergy to iodine Hx of cataract Hx of rheumatic fever Hx of varicose veins Sleep apnea Bronchitis Seizure disorder History of gastroesophageal reflux (GERD) History of cataract Heart murmur History of anemia HLD (hyperlipidemia) Dizziness Bilateral carotid artery stenosis Surgical History Total knee replacement status Hx of cataract surgery Hx of tonsillectomy History of nasal surgery H/O rotator cuff surgery RIGHT History of cholecystectomy History of hysterectomy History of colonoscopy Family History Other Cancer Heart disease Hypertension Stroke Social History Smoking Status: Never smoker alcohol intake: never substance use type: denies use current occupational status: retired Travel in the last 8 weeks?: None household members: none housing: house caffeine: No Have you lived/traveled outside [place] in past 30 days?: No Contact w/someone who lives/traveled outside [place] past 30 days?: No Exposure to someone with infectious disease in past 14 days?: No Do you have a fever (greater than 100.4 F or 38 C)?: No Have you tested positive for COVID-19?: No Exposed to someone with COVID-19 in past 14 days?: No Do you have a sore throat?: No Do you have a cough?: No Do you have any weakness?: No Do you have any diarrhea?: No Are you experiencing any unusual bleeding?: No Do you have any muscle aches/pain?: No Do you have any abdominal pain?: No Are you experiencing loss of taste or smell?: No Other Medical History Have you received the Flu Vaccine for this season: No Have you received the Pneumonia Vaccine: Yes ROS Obtained: Yes Systems reviewed as appropriate & no additional complaints except as documented Physical Exam General General appearance: other (See MDM) Respiratory Respiratory exam: Present other (See MDM) Cardiovascular Cardiovascular exam: Present other (See MDM) Neurological Exam Neurological exam: Present other (See MDM) Medical Decision Making Medical Records Medical records reviewed: Yes I reviewed the patient's medical records. Screening: Per USPSTF and CDC recommendations, given the prevalence of disease in our region, it is our hospital?s policy to screen for HIV and viral Hepatitis for all patients aged 18 and over and those with ongoing risk factors. Diego Inquiry Pt receiving controlled substance: No Diego was queried for this patient: No Vital Signs: 11/06/24 13:47 11/06/24 13:52 11/06/24 14:30 Temperature 98.2 F 98.2 F Temperature Source Oral Oral Pulse Rate 84 80 Pulse Rate [Right] 84 Respiratory Rate 14 14 Blood Pressure 159/89 H 124/86 Blood Pressure [Right Arm] 159/89 H Blood Pressure Mean 90 Blood Pressure Mean [Right Arm] 112 Blood Pressure Source Automatic Cuff Blood Pressure Source [Right Arm] Automatic Cuff Blood Pressure Position Supine Blood Pressure Position [Right Arm] Supine 02 Sat by Pulse Oximetry 96 96 97 Oxygen Delivery Method Room Air Room Air Orders (Tests/Meds): ED MEDICATIONS Discontinued Medications Generic Name Dose Route Start Last Admin Trade Name Freq PRN Reason Stop Dose Admin Bacitracin 1 gm 11/06/24 14:04 11/06/24 14:11 Bacitracin Zinc Oint 30gm Tube TP 11/06/24 14:05 1 applic ONCE ONE Administration Tetanus/Reduced Diphtheria/Acell Pertussis 0.5 ml 11/06/24 14:24 11/06/24 14:44 Tet/Diphth/Pert-Adult 0.5ml Syringe IM 11/06/24 14:25 0.5 ml .ONCE ONE Administration ORDERS Category Date Time Status Hand XR left minimum 3 views [XR hand LT min 3V] Stat Exams 11/06/24 14:03 Completed Hand XR right minimum 3 views [XR hand RT min 3V] Stat Exams 11/06/24 14:03 Completed Medical Decision Narrative: In summary, this is a 73-year-old female patient who suffered bilateral hand contusions with skin tears after the door to her trunk slammed her hands in the latch. Comorbidities include hypertension, hyperlipidemia, coronary artery disease, seizure disorder, and a remote history of rheumatic heart disease. She is not currently on anticoagulant therapy. On initial evaluation of the patient they were resting comfortably in no acute distress and nontoxic in appearance. They are hemodynamically stable, saturating well room air, and are neurologically intact. On physical examination of the patient she has contusions of her bilateral hands with skin tears along the dorsal aspect. Her right hand is worse than the left hand. These skin tears are not amenable to repair with sutures. She has normal sensation in all terminal nerve distributions of her bilateral hands. Ulnar and radial pulses are intact bilaterally. She is able to abduct and adduct her fingers against resistance. She is able to flex and extend her fingers without difficulty. Pincer application counselor of the thumb and index finger is intact. She has no tenderness along the wrist bilaterally or the elbows bilaterally. She has no pain or difficulty with flexion or extension of the wrist. Differential diagnosis includes metacarpal fracture, carpal fracture, hand contusion, skin tear, among others. Workup was initiated with an x-ray of the right hand and the left hand. Hematologic labs were considered but are of low utility as they will not aid in diagnosis of this patient. X-rays were personally interpreted by me and demonstrate no evidence of fracture. Official radiology read is in agreement and states that there is no acute abnormality. We have administered a Tdap shot to the patient. We have also dressed her wounds with bacitracin and gauze. We have given her a 2 of bacitracin to go home with as well as copious supplies to perform dressing changes at home. I have given return precautions to the patient and she acknowledges understanding. At this time all questions have been answered and all parties are agreeable with the decision to discharge home. Critical Care Critical Care Time Critical Care Time: No
[2024-11-06 15:04] VITALS: BP 132/74; PULSE 77; RESP 19; TEMP 37.1; O2SAT 99
== END 2024-11-06 15:06 | disposition home or self-care (01) ==
PROVIDERS: Emergency Provider Student in an Organized Health Care Education/Training Program; PCP Internal Medicine Adolescent Medicine
DX: S61.401A Unspecified open wound of right hand, initial encounter (principal); S61.402A Unspecified open wound of left hand, initial encounter; S60.221A Contusion of right hand, initial encounter; S60.222A Contusion of left hand, initial encounter; W23.0XXA Caught, crushed, jammed, or pinched between moving objects, initial encounter
CPT/HCPCS: 73130; 90471; 90715; 99283